=== PATIENT | female | born 1970 | race Caucasian/White ===

== ENCOUNTER 2022-11-27 16:24 | Outpatient (OUT) | payer OTHER, BC, SELFPAY | END 2022-11-27 16:25 | disposition home or self-care (01) | LOC: SLEEP 16:25 | PROVIDERS: PCP Family Medicine; Visit Provider Family Medicine | DX: G47.33 Obstructive sleep apnea (adult) (pediatric) (principal); G47.10 Hypersomnia, unspecified; J20.4 Acute bronchitis due to parainfluenza virus; R06.02 Shortness of breath | CPT/HCPCS: 95806 ==

== ENCOUNTER 2022-12-01 13:42 | Outpatient (OUT) | payer OTHER, BC, SELFPAY ==
[2022-12-01 09:31] LABS: Hemoglobin 12.7 g/dL (12.0-16.0)
[2022-12-01 10:16] VITALS: PULSE 68; O2SAT 98
[2022-12-01] MEDS: ALBUTEROL SULFATE 2.5 MG/3 ML VIAL NEB IH (10:16)
--- NOTE | 2022-12-01 10:19 | RT_ITS ---
The [facility] Test Date: 2022-12-01 Pat Name: ADRIANNA CAMARGO Department: Room: - Gender: Female Ski Instructor: Catrina Townsend RRT : 1970 Requested By: MICHELLE PATTERSON Order Number: [id number] Reading MD: Ruel Nesbitt Interpretive Statements Pulmonary function testing was completed according to ATS criteria. Findings were considered accurate and reproducible. Both pre- and post-bronchodilator values utilized for spirometry. No prior studies available for comparison. Spirometry (based on pre-bronchodilator values): -FEV1/FVC: Normal @ 77% -FEV1: Moderately reduced @ 68% -FVC: Mildly reduced @ 71% -[id number]%: Reduced @ 56% -There is no significant bronchodilator response. Lung volumes by plethysmography: -RV: Normal @ 98% -TLC: Normal @ 87% Diffusion capacity: -DLCO: Normal at 83% uncorrected Flow-volume loop: -Mixed restrictive pattern with obstructive features Impressions: -Non-diagnostic spirometry with normal lung volumes and diffusion capacity. There may be an underlying obstructive process obscured by restriction secondary to obesity (stated BMI is 32.3). Clinical correlation required. Electronically Signed On 12-05-2022 17:16:06 EDT by Ruel Nesbitt
== END 2022-12-01 13:43 | disposition home or self-care (01) ==
LOC: CARD 13:42
PROVIDERS: PCP Family Medicine; Visit Provider Family Medicine
DX: R06.02 Shortness of breath (principal)
CPT/HCPCS: 36415; 85018; 94060; 94726; 94729

== ENCOUNTER 2023-02-15 07:57 | Outpatient (OUT) | payer OTHER, BC, SELFPAY ==
--- NOTE | 2023-02-15 08:03 | CT_ITS ---
The [address] [address] Patient Name: ADRIANNA CAMARGO MRN: [id number] date: 1970 Sex: F Assigned Patient Location: CT Current Patient Location: CT Accession/Order Number: [id number] Exam Date: 02/15/2023 08:16 Report Date: 02/15/2023 08:57 At the request of: YOGESH SOLORZANO Procedure: CT chest w con EXAM: CT chest w con HISTORY: Hilar Lymphadenopathy, Pulmonary Nodule COMPARISON: 10/10/2022; 10/11/2022 TECHNIQUE: Axial CT images were obtained of the chest with intravenous contrast. Multiplanar reconstructions were performed. CHEST FINDINGS: Lungs/Pleura: The lungs are clear. No pleural effusion or pneumothorax. Cardiovascular: The heart is normal in size. No coronary artery calcifications identified. The aorta and pulmonary arteries are unremarkable. Pericardium: No effusion. Mediastinum: Unremarkable. Lymph Nodes: No lymph node enlargement by CT size criteria. Bones: No acute osseous abnormality. Soft tissues: Unremarkable. Upper Abdomen: There is a tiny hypodense lesion in the liver, likely a small cyst or hemangioma. CT/CT chest w con IMPRESSION: 1. No acute abnormality of the chest. Electronically authenticated by: VI SUBRAMANIAN Date: 02/15/2023 08:57
== END 2023-02-15 07:58 | disposition home or self-care (01) ==
LOC: CT 07:57
PROVIDERS: PCP Family Medicine; Visit Provider Internal Medicine
DX: R59.0 Localized enlarged lymph nodes (principal); R91.1 Solitary pulmonary nodule
CPT/HCPCS: 71260; Q9967

== ENCOUNTER 2023-05-08 06:50 | Outpatient (OUT) | payer OTHER, BC, SELFPAY ==
--- NOTE | 2023-05-08 | PCN_ITS ---
CARDIAC STRESS TEST Requesting Physician: Procedure Date: 05/08/2023 This was a treadmill exercise stress test with nuclear perfusion imaging, performed at the [facility] on 05/08/2023. Informed consent was obtained. The patient was attached to electrocardiographic monitoring. An intravenous line was secured. Resting vital signs and ECG were obtained. The patient exercised on a treadmill for a total of 7 minutes and 7 seconds and reached stage 3 of the Aniket protocol and achieved 9.2 METS. Resting heart rate was 74 BPM, maximum heart rate was 171 BPM, representing 100% of maximal predicted heart rate. Resting blood pressure was 138/76. Maximum blood pressure was 182/84. Baseline ECG showed evidence of sinus rhythm. ECG during exercise showed evidence of sinus tachycardia. Final ECG was compatible to baseline. There was no evidence of ischemic ST changes or arrhythmias as seen during the test. The patient developed shortness of breath with exertion but no chest pain. SUMMARY OF THE FINDINGS: 1. Negative treadmill exercise stress test for exercise induced ischemic ECG changes. 2. Echols treadmill score of +7 is associated with low risk for future cardiac events. 3. Myocardial perfusion images will be reported separately. 4. Resting hypertension and exaggerated blood pressure response to exercise. MTDD
--- NOTE | 2023-05-08 06:35 | NM_ITS ---
Patient Name: ADRIANNA CAMARGO MR#: [id number] : 1970 Exam Date: 05/08/2023 Ordering Doctor: RIVAS JENKINS RADIOLOGY REPORT PROCEDURE: NM CODEY PERF SPECT REST STR COMPARISON: None. INDICATIONS: CHEST PAIN TECHNIQUE: Exam Description: Stress/Rest one day protocol gated SPECT Rest Imagin.5 mCi Tc-99m Cardiolite IV on 05/08/2023 Stress Imaging 30.9 mCi Tc-99m Cardiolite IV on 05/08/2023 Exercise Protocol: Aniket Heart Rate (bpm): Rest: 72 Max: 171 PMHR: 100 Blood Pressure: Rest: 138/76 Max: 182/84 Exercise Time: Minutes: 7 Seconds: 07 Stage Reached: Stage: 3 Mets 9.2 Symptoms: Rest and peak stress ECG findings were normal and the exercise portion of the study was normal per attending physician Dr. Sim . For more details please see separate cardiac stress test report. FINDINGS: QUALITY OF STUDY: Excellent. PERFUSION DEFECT: None. LOCATION: N/A SIZE: N/A. SEVERITY: N/A. TYPE: N/A. WALL MOTION: Normal. LV SIZE: Normal. 74 mL. TID / TCD: None; 0.9 LVEF: Normal. Calculated EF 74%. SUMMARY: Myocardial perfusion imaging study is NORMAL. CONCLUSION: 1. Normal nuclear medicine myocardial perfusion scan. Dictated by: Tre Urbano M.D. on 05/10/2023 at 08:56 Approved by: Tre Urbano M.D. on 05/10/2023 at 08:58
--- NOTE | 2023-05-08 10:42 | CA_ITS ---
Patient Name: ADRIANNA CAMARGO MR#: [id number] : 1970 Exam Date: 05/08/2023 Ordering Doctor: RIVAS JENKINS ECHOCARDIOGRAM REPORT PROCEDURE: CA ECHO DOPPLER COMPLETE INDICATIONS: Dyspnea, chest pain COMPARISON: None. DESCRIPTION: COMPLETE ECHOCARDIOGRAM Real-time transthoracic echocardiography with 2D, M-mode, spectral and color flow Doppler performed. QUALITY: Technical quality was good. 66 , 195#, BSA 1.98 m2 LEFT VENTRICLE: Normal chamber size. Normal left ventricular wall thickness. LV EF: Normal left ventricular ejection fraction, (>55%). DIASTOLIC: Normal diastolic function. ATRIAL SEPTUM: Visually appears intact. LEFT ATRIUM: Normal chamber size. RIGHT ATRIUM: Normal chamber size. RIGHT VENTRICLE: Normal chamber size. Normal right ventricular systolic function. TRICUSPID VALVE: Normal mobility and thickness. No stenosis with trivial regurgitation. No evidence of pulmonary hypertension.RVSP 25 mmHg MITRAL VALVE: Normal mobility and thickness. No evidence of mitral valve stenosis. There is no mitral annular calcification. Trivial mitral regurgitation. AORTIC VALVE: Normal trileaflet appearance. No visible sclerosis. Normal leaflet mobility. No evidence of aortic valve stenosis. No aortic regurgitation. AORTIC ROOT: Normal diameter and appearance. PULMONIC VALVE: Normal thickness and mobility. No stenosis. Trivial regurgitation. PERICARDIUM: Anterior free space; trivial effusion versus fat pad. IVC: Collapses with inspirations. IVC is normal in size. CONCLUSION: 1. Global left ventricular systolic function is normal; visually estimated ejection fraction is 60 to 65% 2. Normal diastolic function 3. Normal right ventricular size and systolic function 4. No significant valvular abnormalities 5. Anterior free space; trivial effusion versus fat pad Adult Echocardiography Procedure Report Left Ventricle LVEDD (3.7 - 5.6 cm): 4.39 cm LVESD (2.2 - 4.0 cm): 3.22 cm LVIVS thickness (0.6 - 1.2 cm): 0.77 cm LVPW thickness (0.5 - 1.0 cm): 0.88 cm e': 0.11 m/s E - e': 7.22 LVOT Max Gradient: 2.64 mm[Hg], 2.32 mm[Hg] LVOT Area (cm2): 0.79 m/s Peak Velocity (LVOT): 0.81 m/s, 0.76 m/s Mean Velocity (LVOT): 0.61 m/s LVOT Diameter 2.10 cm Left Atrium LA Volume Index (2D A2C): 26.96 ml/m2 Left Atrium Systolic Dimension: 3.45 cm Mitral Valve MV E to A Ratio: 1.02, 1.03 Mitral Valve A-Wave Peak Velocity: 0.76 m/s Mitral Valve E-Wave Peak Velocity: 0.78 m/s Right Ventricle Aorta AO Root Diam: 2.75 cm Ascending Ao Diam: 2.45 cm Aortic Valve AoV Area (Peak Nathaniel): 1.96 cm2, 2.02 cm2 AoV Area (VTI): 2.17 cm2, 2.20 cm2 Peak Velocity(Antegrade Flow): 1.39 m/s Peak Gradient(Antegrade Flow): 7.73 mm[Hg] Mean Velocity(Antegrade Flow): 0.96 m/s Mean Gradient(Antegrade Flow): 4.04 mm[Hg] Velocity Time Integral: 28.01 cm Tricuspid Valve Peak Velocity (Regurgitant Flow): 2.03 m/s, 2.34 m/s, 2.16 m/s Pulmonic Valve Peak Velocity: 0.93 m/s Peak Gradient: 3.26 mm[Hg], 3.68 mm[Hg] Right Atrium Right Atrium Systolic Pressure: 39.59 ml, 39.59 ml Dictated by: Danika Almonte M.D. on 05/09/2023 at 14:30 Approved by: Danika Almonte M.D. on 05/09/2023 at 14:32
== END 2023-05-08 06:51 | disposition home or self-care (01) ==
LOC: NM 06:51
PROVIDERS: PCP Family Medicine; Visit Provider Internal Medicine Cardiovascular Disease
DX: R06.02 Shortness of breath (principal); R07.9 Chest pain, unspecified
CPT/HCPCS: 78452; 93017; 93306; A9500

== ENCOUNTER 2023-05-13 08:55 | Emergency (ER) | payer OTHER, BC, SELFPAY ==
[2023-05-13 08:59] VITALS: BP 130/79; PULSE 100; RESP 18; TEMP 37.6; O2SAT 92; BMI 30.7
--- NOTE | 2023-05-13 09:11 | ED.GENADUL1 ---
HPI - General Adult General Chief complaint: Upper Respiratory Infection Stated complaint: flu symptoms Time Seen by Provider: 05/13/23 09:06 Source: patient Mode of arrival: walk-in Limitations: no limitations History of Present Illness HPI narrative: 52-year-old female presents for a three day history of nausea vomiting diarrhea body aches and cough. No other family members are ill. No hematemesis or blood in her stool. Related Data Previous Rx's Medication Instructions Recorded ondansetron 4 mg disintegrating 4 mg PO Q6H PRN nausea and 05/13/23 tablet vomiting #20 tabs Allergies Allergy/AdvReac Type Severity Reaction Status Date / Time No Known Drug Allergies Allergy Verified 05/13/23 08:59 Review of Systems ROS Narrative A ten point review of systems is negative except as noted above. Exam Narrative Exam Narrative: Nurses note and vital signs reviewed and patient is not hypoxic. General: The patient appears well and in no apparent distress. Patient is resting comfortably on cart. Skin: Warm, dry, no pallor noted. There is no rash noted. Head: Normocephalic, atraumatic Eye: Normal conjunctiva, no drainage Ears, Nose, Mouth, and Throat: oral mucosa is moist. Nares patent. Cardiovascular: Regular Rate and Rhythm Respiratory: Patient is in no distress, no accessory muscle use, lungs are clear to auscultation, no wheezing, rales or rhonchi Back: non-tender GI: no tenderness to palpation, no masses appreciated. No rebound, guarding, or rigidity noted. Musculoskeletal: The patient has no evidence of calf tenderness, no pitting edema, symmetrical pulses noted bilaterally Neurological: A&O, normal speech Psychiatric: Cooperative Constitutional Vital Signs, click to edit/add: Last Vital Signs Temp 99.7 F 05/13/23 08:59 Pulse 88 05/13/23 10:08 Resp 20 05/13/23 10:08 BP 108/60 05/13/23 10:08 Pulse Ox 92 L 05/13/23 10:08 O2 Del Method Room Air 05/13/23 08:59 Course Vital Signs Vital signs: Vital Signs Temperature 99.7 F 05/13/23 08:59 Pulse Rate 100 H 05/13/23 08:59 Respiratory Rate 18 05/13/23 08:59 Blood Pressure 130/79 05/13/23 08:59 Pulse Oximetry 92 L 05/13/23 08:59 Oxygen Delivery Method Room Air 05/13/23 08:59 Temperature 99.7 F 05/13/23 08:59 Pulse Rate 88 05/13/23 10:08 Respiratory Rate 20 05/13/23 10:08 Blood Pressure 108/60 05/13/23 10:08 Pulse Oximetry 92 L 05/13/23 10:08 Oxygen Delivery Method Room Air 05/13/23 08:59 Medical Decision Making MDM Narrative Medical decision making narrative: Blood work as well as Covid in influenza testing is negative. She is able to be discharged home and my clinical impression is that she has a viral infection. Treatment diagnosis and follow-up were discussed with the patient. Differential Diagnosis Differential Diagnosis: food poisoning, viral gastroenteritis, Covid, influenza Lab Data Lab results reviewed: Yes I reviewed the patient's lab results Labs: Lab Results 05/13/23 Range/Units 09:15 WBC 10.6 (4.0-11.0) 10^3/uL RBC 4.25 (4.20-5.40) 10^6/uL Hgb 12.8 (12.0-16.0) g/dL Hct 38.9 (36.0-48.0) % MCV 91.5 (81.0-99.0) fL MCH 30.1 (26.7-34.0) pg MCHC 32.9 (29.9-35.2) g/dL RDW 13.1 (11.0-15.0) % Plt Count 239 (150-450) 10^3/uL MPV 8.6 L (9.5-13.5) fL Neut % (Auto) 87.1 H (43.0-75.0) % Lymph % (Auto) 5.6 L (20.5-60.0) % [place] % (Auto) 6.6 (1.7-12.0) % Eos % (Auto) 0.1 L (0.9-7.0) % Baso % (Auto) 0.1 L (0.2-2.0) % Neut # (Auto) 9.2 H (1.4-6.5) 10^3/uL Lymph # (Auto) 0.6 L (1.2-3.8) 10^3/uL [place] # (Auto) 0.7 (0.3-0.8) 10^3/uL Eos # (Auto) 0.0 (0.0-0.7) 10^3/uL Baso # (Auto) 0.0 (0.0-0.1) 10^3/uL Abs Immat Gran (auto) 0.05 H (0.00-0.03) 10^3/uL Imm/Tot Granulo (auto) 0.5 (0.0-0.5) % Sodium 135 L (136-145) mmol/L Potassium 3.4 L (3.5-5.1) mmol/L Chloride 98 (98-107) mmol/L Carbon Dioxide 26.0 (21.0-32.0) mmol/L Anion Gap 14.4 BUN 20.0 H (7.0-18.0) mg/dL Creatinine 1.06 H (0.55-1.02) mg/dL Est GFR ( Amer) >60 (>=60) Est GFR (Non-Af Amer) 55 L (>=60) BUN/Creatinine Ratio 18.9 Glucose 115 H (74-106) mg/dL Calcium 8.7 (8.5-10.1) mg/dL SARS-CoV-2 (PCR) Negative (NEGATIVE) Influenza Type A Ag Negative Influenza Type B Ag Negative Discharge Plan Discharge Chief Complaint: Upper Respiratory Infection Clinical Impression: Nausea, vomiting, and diarrhea Patient Disposition: Home, Self-Care Time of Disposition Decision: 10:44 Condition: Good Mode of Transportation: Private Vehicle Prescriptions / Home Meds: New ondansetron 4 mg tablet,disintegrating 4 mg PO Q6H PRN (Reason: nausea and vomiting) Qty: 20 0RF Instructions: Acute Nausea and Vomiting (ED) Stand Alone Forms: Portal Instructions Referrals: Regan Crain MD [Primary Care Provider] - 1 week
[2023-05-13] MEDS: 0.9 % SODIUM CHLORIDE 1,000 ML 1000 ML IV (09:22)
[2023-05-13 09:23] LABS: Basophils Percent Auto 0.1 % (0.2-2.0); Eosinophils Percent Auto 0.1 % (0.9-7.0); Hematocrit 38.9 % (36.0-48.0); Hemoglobin 12.8 g/dL (12.0-16.0); Immature Granulocytes Abs Auto 0.05 10^3/uL (0.00-0.03); Immature Granulocytes Pct Auto 0.5 % (0.0-0.5); Lymphocytes Absolute Auto 0.6 10^3/uL (1.2-3.8); Lymphocytes Percent Auto 5.6 % (20.5-60.0); Mean Corpuscular HGB Conc 32.9 g/dL (29.9-35.2); Mean Corpuscular Hemoglobin 30.1 pg (26.7-34.0); Mean Corpuscular Volume 91.5 fL (81.0-99.0); Mean Platelet Volume 8.6 fL (9.5-13.5); Monocytes Absolute Auto 0.7 10^3/uL (0.3-0.8); Monocytes Percent Auto 6.6 % (1.7-12.0); Neutrophils Absolute Auto 9.2 10^3/uL (1.4-6.5); Neutrophils Percent Auto 87.1 % (43.0-75.0); Platelet Count 239 10^3/uL (150-450); Red Blood Count 4.25 10^6/uL (4.20-5.40); Red Cell Distribution Width 13.1 % (11.0-15.0); White Blood Count 10.6 10^3/uL (4.0-11.0)
[2023-05-13] MEDS: ONDANSETRON PF 4 MG/2 ML VIAL IV (09:23)
[2023-05-13 09:31] LABS: Anion Gap 14.4; BUN Creatinine Ratio 18.9; Calcium 8.7 mg/dL (8.5-10.1); Chloride 98 mmol/L (98-107); Estimated GFR (African America >60 (>=60); Estimated GFR (Non-African Ame 55 (>=60); Glucose 115 mg/dL (74-106); Potassium 3.4 mmol/L (3.5-5.1); Sodium 135 mmol/L (136-145)
--- OUTSIDE RECORDS SUMMARY | 2023-05-13 09:33 | XMS_ITS | CCD ---
Author Name Unknown Address [address] [facility] [address] [place] [id number] Organization [facility] Care Team Providers Care Assurance Analyst Name Role Phone YESENIA, DR MICHELLE Schafer Primary Care Unavailable OCTAVIANO, DR JUNG Bingham Consulting Unavailable FAFARIDEH, SHAIKH Luis Admitting Unavailable MICHAEL, SHAIKH Luis Attending Unavailable MARKER ., DR SULLIVAN Consulting Unavailable FAWRAMONE, SHAIKH Luis Consulting Unavailable KNABEPEGGY Consulting Unavailable SISTER, GWENDOLYN Consulting Unavailable YESENIA, DR MICHELLE Schafer Primary Care Unavailable NADWILMAN, DR MICHELLE Schafer Consulting Unavailable YESENIA, DR MICHELLE Schafer Attending Unavailable NADWILMAN, DR MICHELLE Schafer Admitting Unavailable NADERER, DR MICHELLE Schafer Primary Care Unavailable NADERER, DR MICHELLE Schafer Consulting Unavailable NADERER, DR MICHELLE Schafer Attending Unavailable YESENIA, DR MICHELLE Schafer Admitting Unavailable RIVAS JENKINS Attending Unavailable Shannon Peñaloza Unavailable Medications Current Medications Medication Drug Class(es) Dates Sig (Normalized) Sig (Original) azithromycin 250 mg oral tablet (1 source) Macrolide Antimicrobial Start: 03-05-2023 Azithromycin 250 MG 2 tablet on the first day, then 1 tablet daily for 4 days Orally Once a day for 5 day(s) Feb, Active Problems Active Problems Problem Classification Problem Date Documented Date Episodic/Chronic Asthma (1 source) Unspecified asthma with (acute) exacerbation; Translations: [UNS ASTHMA W/ACUTE EXACERBATION] Onset: 10-13-2022 Chronic Bacterial infection; unspecified site (1 source) Other staphylococcus as the cause of diseases classified elsewhere; Translations: [OTH STAPH CAUSE OF DZ CLASS ELSW] Onset: 10-13-2022 Episodic Chronic obstructive pulmonary disease and bronchiectasis (1 source) Bronchitis, not specified as acute or chronic Episodic Nonspecific chest pain (2 sources) Chest pain, unspecified; Translations: [Chest pain, unspecified] Onset: 02-27-2023 Episodic Other lower respiratory disease (1 source) Solitary pulmonary nodule; Translations: [SOLITARY PULMONARY NODULE] Onset: 10-13-2022 Episodic Other screening for suspected conditions (not mental disorders or infectious disease) (1 source) Other specified abnormal findings of blood chemistry; Translations: [OTH SPEC ABNORMAL FINDINGS BLD CHEM] Onset: 10-13-2022 Episodic Residual codes; unclassified (1 source) Obstructive sleep apnea (adult) (pediatric); Translations: [OBSTRUCTIVE SLEEP APNEA] Onset: 10-13-2022 Chronic Residual codes; unclassified (1 source) Family history of ischemic heart disease and other diseases of the circulatory system; Translations: [FAM HX ISCHEMIC HRT DZ OTH DZ CIRC] Onset: 10-13-2022 Episodic Respiratory failure; insufficiency; arrest (adult) (1 source) Acute respiratory failure with hypoxia; Translations: [ACUTE RESPIRATORY FAIL W/HYPOXIA] Onset: 10-13-2022 Episodic Unclassified (1 source) CONTACT W/AND (SUSP) EXPOS COVID-19; Translations: [CONTACT W/AND (SUSP) EXPOS COVID-19] Onset: 10-13-2022 Viral infection (3 sources) Other viral infections of unspecified site; Translations: [OTHER VIRAL INFECTIONS OF UNS SITE] Onset: 10-11-2022 Episodic Past or Other Problems Problem Classification Problem Date Documented Da te Episodic/Chronic Cardiac dysrhythmias (1 source) Palpitations; Translations: [PALPITATIONS] Onset: 04-15-2022 Episodic Malaise and fatigue (5 sources) Other fatigue; Translations: [OTHER FATIGUE] Onset: 03-09-2022 Episodic Other lower respiratory disease (4 sources) Shortness of breath; Translations: [SHORTNESS OF BREATH] Onset: 04-10-2022 Episodic Residual codes; unclassified (1 source) Localized edema; Translations: [LOCALIZED EDEMA] Onset: 04-15-2022 Episodic Results Test Name Value Interpretation Reference Range Facility CULTURE BLOODon 10-15-2022 Microscopic examination of blood, culture Culture Observations: Aerobic bottle positive; BCID= S. Epidermidis Culture Observations: NO GROWTH AT 5 DAYS ANAEROBIC BOTTLE. Isolate 1 Staphylococcus capitis Growth of Isolate 2 Staphylococcus epidermidis Growth of ORGANISM 1 Staphylococcus capitis ANTIBIOTIC M.I.C RX STATUS Beta-Lactamase Neg NEG C Cefoxitin Screen Neg NEG C Benzylpenicillin <=0.03 S C Oxacillin <=0.25 S C Gentamicin <=0.5 S C Ciprofloxacin <=0.5 S C Levofloxacin 0.5 S C Inducible Clindamycin Resistance Neg NEG C Erythromycin 0.5 S C Clindamycin <=0.25 S C Quinupristin/Dalfopr istin 0.5 S C Linezolid 2 S C Vancomycin 1 S C Tetracycline <=1 S C Rifampicin <=0.5 S C Trimethoprim/Sulfame thoxazole <=10 S C ORGANISM 2 Staphylococcus epidermidis ANTIBIOTIC M.I.C RX STATUS Beta-Lactamase Neg NEG C Cefoxitin Screen Neg NEG C Benzylpenicillin <=0.03 S C Oxacillin <=0.25 S C Gentamicin <=0.5 S C Ciprofloxacin <=0.5 S C Levofloxacin <=0.12 S C Erythromycin <=0.25 S C Clindamycin >=8 R C Quinupristin/Dalfopr istin <=0.25 S C Linezolid 1 S C Vancomycin 1 S C Tetracycline <=1 S C Rifampicin <=0.5 S C Trimethoprim/Sulfame thoxazole <=10 S C Normal [facility] Comment on above: Performed By: #### B MP #### [facility] [address] [place] [address] Dr. Abril Richmond CBC AUTO DIFFon 10-12-2022 BASO # 0.0 103/ul Normal 0.0-0.1 [facility] Comment on above: Performed By: #### B MP #### [facility] [address] [place] [address] Dr. Abril Richmond Basophils/100 WBC (Bld) 0.2 % Normal 0.2-2.0 [facility] Comment on above: Performed By: #### B MP #### [facility] [address] [place] [address] Dr. Abril Richmond EO # 0.0 103/ul Normal 0.0-0.7 [facility] Comment on above: Performed By: #### B MP #### [facility] [address] [place] [address] Dr. Abril Richmond Eosinophils/100 WBC (Bld) 0.1 % Critically low 0.9-7.0 [facility] Comment on above: Performed By: #### B MP #### [facility] [address] [place] [address] Dr. Abril Richmond Erythrocyte distribution width (RBC) [Ratio] 13.0 % Normal 11.0-15.0 [facility] Comment on above: Performed By: #### B MP #### [facility] [address] [place] [address] Dr. Abril Richmond Hematocrit (Bld) [Volume fraction] 33.6 % Critically low 36.0-48.0 [facility] Comment on above: Performed By: #### B MP #### [facility] [address] [place] [address] Dr. Abril Richmond Hemoglobin (Bld) [Mass/Vol] 10.9 g/dL Critically low 12.0-16.0 [facility] Comment on above: Performed By: #### B MP #### [facility] [address] [place] [address] Dr. Abril Richmond IG # 0.18 10e3/ul Critically high 0.00-0.03 [facility] Comment on above: Performed By: #### B MP #### [facility] [address] [place] [address] Dr. Abril Richmond IG % 1.4 % Critically high 0.0-0.5 [facility] Comment on above: Performed By: #### B MP #### [facility] [address] [place] [address] Dr. Abril Richomnd LYMPH # 0.6 103/ul Critically low 1.2-3.8 [facility] Comment on above: Performed By: #### B MP #### [facility] [address] [place] [address] Dr. Abril Richmond Lymphocytes/100 WBC (Bld) 4.6 % Critically low 20.5-60.0 [facility] Comment on above: Performed By: #### B MP #### [facility] [address] [place] [address] Dr. Abril Richmond MANUAL DIFF REQ NO Normal [facility] Comment on above: Performed By: #### B MP #### [facility] [address] [place] [address] Dr. Abril Richmond MCH (RBC) [Entitic mass] 29.1 pg Normal 26.7-34.0 [facility] Comment on above: Performed By: #### B MP #### [facility] [address] [place] [address] Dr. Abril Richmond MCHC (RBC) [Mass/Vol] 32.4 g/dL Normal 29.9-35.2 [facility] Comment on above: Performed By: #### B MP #### [facility] [address] [place] [address] Dr. Abril Richmond MCV (RBC) [Entitic vol] 89.8 fL Normal 81.0-99.0 [facility] Comment on above: Performed By: #### B MP #### [facility] [address] [place] [address] Dr. Abril Richmond MONO # 0.5 103/ul Normal 0.3-0.8 [facility] Comment on above: Performed By: #### B MP #### [facility] [address] [place] [address] Dr. Abril Richmond Monocytes/100 WBC (Bld) 3.7 % Normal 1.7-12.0 [facility] Comment on above: Performed By: #### B MP #### [facility] [address] [place] [address] Dr. Abril Richmond NEUT # 12.0 103/ul Critically high 1.4-6.5 [facility] Comment on above: Performed By: #### B MP #### [facility] [address] [place] [address] Dr. Abril Richmond Neutrophils/100 WBC (Bld) 90.0 % Critically high 43.0-75.0 [facility] Comment on above: Performed By: #### B MP #### [facility] [address] [place] [address] Dr. Abril Richmond Platelet mean volume (Bld) [Entitic vol] 8.6 fL Critically low 9.5-13.5 [facility] Comment on above: Performed By: #### B MP #### [facility] [address] [address] [address] Abril Richmond PLT 334 103/ul Normal 150-450 [facility] Comment on above: Performed By: #### B MP #### [facility] [address] [address] [address] Abril Richmond RBC 3.74 106/ul Critically low 4.20-5.40 [facility] Comment on above: Performed By: #### B MP #### [facility] [address] [address] [address] Abril Richmond WBC 13.3 103/ul Critically high 4.0-11.0 [facility] Comment on above: Performed By: #### B MP #### [facility] [address] [place] [address] Dr. Abril Richmond PROF CHEM 8 (BAS METB)on Anion gap [Moles/Vol] 11.4 mmol/L Normal [facility] Comment on above: Performed By: #### B MP #### [facility] [address] [place] [address] Dr. Abril Richmond Calcium [Mass/Vol] 8.4 mg/dL Critically low 8.5-10.1 [facility] Comment on above: Performed By: #### B MP #### [facility] [address] [place] [address] Dr. Abril Richmond Chloride [Moles/Vol] 105 mmol/L Normal 98-107 [facility] Comment on above: Performed By: #### B MP #### [facility] [address] [place] [address] Dr. Abril Richmond CO2 [Moles/Vol] 28.5 mmol/L Normal 21.0-32.0 [facility] Comment on above: Performed By: #### B MP #### [facility] [address] [place] [address] Dr. Abril Richmond Creatinine [Mass/Vol] 0.81 mg/dL Normal 0.55-1.02 [facility] Comment on above: Performed By: #### B MP #### [facility] [address] [address] [address] Abril Richmond EGFR-AF KAZAKH >60 Normal >=60 [facility] Comment on above: Performed By: #### B MP #### [facility] [address] [address] [address] Abril Richmond EGFR-NON AF KAZAKH >60 Normal >=60 [facility] Comment on above: Performed By: #### B MP #### [facility] [address] [address] [address] Abril Richmond Glucose [Mass/Vol] 160 mg/dL Critically high 74-106 [facility] Comment on above: Performed By: #### B MP #### [facility] [address] [place] [address] Dr. Abril Richmond Potassium [Moles/Vol] 3.9 mmol/L Normal 3.5-5.1 [facility] Comment on above: Performed By: #### B MP #### [facility] [address] [address] [address] Abril Richmond Sodium [Moles/Vol] 141 mmol/L Normal 136-145 [facility] Comment on above: Performed By: #### B MP #### [facility] [address] [address] [address] Abril Richmond Urea nitrogen [Mass/Vol] 17.0 mg/dL Normal 7.0-18.0 [facility] Comment on above: Performed By: #### B MP #### [facility] [address] [address] [address] Abril Richmond Urea nitrogen/Creatinine [Mass ratio] 21.0 mg/mg Normal [facility] Comment on above: Performed By: #### B MP #### [facility] [address] [address] [address] Abril Richmond POINT OF CARE GLUCOSEon 09-19 Glucose [Mass/Vol] 167 mg/dL Critically high 74-106 [facility] Comment on above: Performed By: #### P OCGLUC #### [facility] [address] [address] [address] Abril Richmond XR CHEST 1 Von 10-11-2022 XR CHEST 1 V EXAMINATION: XR CHEST 1 V HISTORY: shortness of breath or wheezing COMPARISON: CTA chest 10/10/2022 FINDINGS: LUNGS: No acute infiltrates. Prominent pericardial fat pad within medial right lung base. VASCULATURE: No increased pulmonary vasculature. PLEURA: No pneumothorax, effusion, or pleural thickening. CARDIAC: No cardiomegaly or cardiac silhouette abnormality. MEDIASTINUM: No visible mass or adenopathy. BONES: No fracture or visible bone lesion. OTHER: Negative. IMPRESSION: 1. No acute cardiopulmonary process. Electronically authenticated by: JUNG BRUMFIELD Date: 2022-10-11 13:22 Normal [facility] BLOOD CULTURE ID PANELon A. baumannii Not detected Normal NOT DETECTED [facility] Comment on above: Performed By: #### B CID2 #### [facility] [address] [address] [address] Abril Richmond Bacteriodes fragilis Not detected Normal NOT DETECTED [facility] Comment on above: Performed By: #### B CID2 #### [facility] [address] [address] [address] Abril Richmond BCID CONTROLS PASSED Normal [facility] Comment on above: Performed By: #### B CID2 #### [facility] [address] [address] [address] Abril Richmond BCIDBTHD BLOOD CULTURE BOTTLE INFORMATION Normal [facility] Comment on above: Performed By: #### B CID2 #### [facility] [address] [address] [address] Abril Richmond BCIDHD1 ANTIMICROBIAL RESISTANCE GENES Normal [facility] Comment on above: Performed By: #### B CID2 #### [facility] [address] [place] [address] Dr. Abril Richmond BCIDHD2 SEE BELOW Normal [facility] Comment on above: Result Comment: Note : Antimicrobial resitance can occur via multiple mechanisms. A Not Detected result for the [employer] antomicrobial resistance gene assays does not indicate antimicrobial susceptibility. Subculturing is required for species identification and susceptibility testing of isolates. Performed By: #### B CID2 #### [facility] [address] [place] [address] Dr. Abril Richmond BCIDHD3 Positive Normal [facility] Comment on above: Performed By: #### B CID2 #### [facility] [address] [place] [address] Dr. Abril Richmond BCIDHD4 Negative Normal [facility] Comment on above: Performed By: #### B CID2 #### [facility] [address] [place] [address] Dr. Abril Richmond BCIDHD5 YEAST Normal [facility] Comment on above: Performed By: #### B CID2 #### [facility] [address] [place] [address] Dr. Abril Richmond Bottle Set: Set 1 [facility] Comment on above: Performed By: #### B CID2 #### [facility] [address] [place] [address] Dr. Abril Richmond Bottle: Aerobic Normal [facility] Comment on above: Performed By: #### B CID2 #### [facility] [address] [place] [address] Dr. Abril Richmond C. neoformans/gattii Not detected Normal NOT DETECTED [facility] Comment on above: Performed By: #### B CID2 #### [facility] [address] [place] [address] Dr. Abril Richmond Lucy albicans Not detected Normal NOT DETECTED [facility] Comment on above: Performed By: #### B CID2 #### [facility] [address] [place] [address] Dr. Abril Richmond Lucy auris Not detected Normal NOT DETECTED The [facility] Comment on above: Performed By: #### B CID2 #### [facility] [address] [place] [address] Dr. Abril Richmond Lucy glabrata Not detected Normal NOT DETECTED [facility] Comment on above: Performed By: #### B CID2 #### [facility] [address] [place] [address] Dr. Abril Richmond Lucy Krusei Not detected Normal NOT DETECTED [facility] Comment on above: Performed By: #### B CID2 #### [facility] [address] [place] [address] Dr. Abril Richmond Lucy Parapsilosis Not detected Normal NOT DETECTED [facility] Comment on above: Performed By: #### B CID2 #### [facility] [address] [place] [address] Dr. Abril Richmond Lucy Tropicalis Not detected Normal NOT DETECTED [facility] Comment on above: Performed By: #### B CID2 #### [facility] [address] [address] [address] Abril Richmond CTX-M Resistant Gene Not Applicable Normal NOT DETECTE [facility] Comment on above: Performed By: #### B CID2 #### [facility] [address] [place] [address] Dr. Abril Richmond E. Cloacae complex Not detected Normal NOT DETECTED [facility] Comment on above: Performed By: #### B CID2 #### [facility] [address] [place] [address] Dr. Abril Richmond E. faecalis Not detected Normal NOT DETECTED [facility] Comment on above: Performed By: #### B CID2 #### [facility] [address] [place] [address] Dr. Abril Richmond E. faecium Not detected Normal NOT DETECTED [facility] Comment on above: Performed By: #### B CID2 #### [facility] [address] [place] [address] Dr. Abril Richmond Enterobacteriaceae Not detected Normal NOT DETECTED [facility] Comment on above: Performed By: #### B CID2 #### [facility] [address] [place] [address] Dr. Abril Richmond Escherichia coli Not detected Normal NOT DETECTED [facility] Comment on above: Performed By: #### B CID2 #### [facility] [address] [place] [address] Dr. Abril Richmond H. influenzae Not detected Normal NOT DETECTED The [facility] Comment on above: Performed By: #### B CID2 #### [facility] [address] [place] [address] Dr. Abril Richmond IMP Resistant Gene Not Applicable Normal NOT DETECTED [facility] Comment on above: Performed By: #### B CID2 #### [facility] [address] [place] [address] Dr. Abril Bains. oxytoca Not detected Normal NOT DETECTED [facility] Comment on above: Performed By: #### B CID2 #### [facility] [address] [place] [address] Dr. Abril Richmond K. pneumoniae Not detected Normal NOT DETECTED The [facility] Comment on above: Performed By: #### B CID2 #### [facility] [address] [place] [address] Dr. Abril Richmond Klebsiella aerogenes Not detected Normal NOT DETECTED [facility] Comment on above: Performed By: #### B CID2 #### [facility] [address] [place] [address] Dr. Abril Richmond KPC Resistant Gene Not detected Normal NOT DETECTED [facility] Comment on above: Performed By: #### B CID2 #### [facility] [address] [place] [address] Dr. Abril Richmond List. monocytogenes Not detected Normal NOT DETECTED [facility] Comment on above: Performed By: #### B CID2 #### [facility] [address] [place] [address] Dr. Abril Richmond Mcr-1 Resistant Gene Not Applicable Normal NOT DETECTE D [facility] Comment on above: Performed By: #### B CID2 #### [facility] [address] [place] [address] Dr. Abril Richmond mecA/C Not Applicable Normal NOT DETECTED [facility] Comment on above: Performed By: #### B CID2 #### [facility] [address] [place] [address] Dr. Abril Richmond mecA/C MREJ Not Applicable Normal NOT DETECTED The [facility] Comment on above: Performed By: #### B CID2 #### [facility] [address] [place] [address] Dr. Abril Richmond N. meningitidis Not detected Normal NOT DETECTED [facility] Comment on above: Performed By: #### B CID2 #### [facility] [address] [place] [address] Dr. Abril Richmond NDM Resistant Gene Not Applicable Normal NOT DETECTED [facility] Comment on above: Performed By: #### B CID2 #### [facility] Laboratory [address] [place] [address] Dr. Abril Richmond Oxa-48-like Not Applicable Normal NOT DETECTED The [facility] Comment on above: Performed By: #### B CID2 #### [facility] [address] [place] [address] Dr. Abril Richmond Proteus Not detected Normal NOT DETECTED [facility] Comment on above: Performed By: #### B CID2 #### [facility] [address] [place] [address] Dr. Abril Richmond Pseud. aeruginosa Not detected Normal NOT DETECTED [facility] Comment on above: Performed By: #### B CID2 #### [facility] [address] [place] [address] Dr. Abril Richmond S. maltophilia Not detected Normal NOT DETECTED [facility] Comment on above: Performed By: #### B CID2 #### [facility] [address] [place] [address] Dr. Abril Richmond Salmonella Not detected Normal NOT DETECTED [facility] Comment on above: Performed By: #### B CID2 #### [facility] [address] [place] [address] Dr. Abril Richmond Seratia marcescens Not detected Normal NOT DETECTED [facility] Comment on above: Performed By: #### B CID2 #### [facility] [address] [place] [address] Dr. Abril Richmond Site: R AC Normal [facility] Comment on above: Performed By: #### B CID2 #### [facility] [address] [place] [address] Dr. Abril Richmond Staph. aureus Not detected Normal NOT DETECTED The [facility] Comment on above: Performed By: #### B CID2 #### [facility] [address] [place] [address] Dr. Abril Richmond Staph. epidermidis Detected Critically abnormal NOT DETECTED [facility] Comment on above: Performed By: #### B CID2 #### [facility] [address] [place] [address] Dr. Abril Richmond Staph. lugdunensis Not detected Normal NOT DETECTED [facility] Comment on above: Performed By: #### B CID2 #### [facility] [address] [place] [address] Dr. Abril Richmond Staphylococcus Detected Critically abnormal NOT DETECTED [facility] Comment on above: Performed By: #### B CID2 #### [facility] [address] [place] [address] Dr. Abril Richmond Strep. agalactiae Not detected Normal NOT DETECTED [facility] Comment on above: Performed By: #### B CID2 #### [facility] [address] [place] [address] Dr. Abril Richmond Strep. pneumoniae Not detected Normal NOT DETECTED [facility] Comment on above: Performed By: #### B CID2 #### [facility] [address] [place] [address] Dr. Abril Richmond Strep. pyogenes Not detected Normal NOT DETECTED [facility] Comment on above: Performed By: #### B CID2 #### [facility] [address] [place] [address] Dr. Abril Richmond Streptococcus Not detected Normal NOT DETECTED The [facility] Comment on above: Performed By: #### B CID2 #### [facility] [address] [place] [address] Dr. Abril Richmond John/B Resist. Gene Not detected Normal NOT DETECTED [facility] Comment on above: Performed By: #### B CID2 #### [facility] [address] [place] [address] Dr. Abril Richmond VIM Resistant Gene Not Applicable Normal NOT DETECTED [facility] Comment on above: Performed By: #### B CID2 #### [facility] [address] [place] [address] Dr. Abril Richmond BNPon 10-10-2022 Natriuretic peptide B (Bld) [Mass/Vol] 194.0 pg/mL Normal <=900.0 [facility] Comment on above: Performed By: #### C MP, HSTROPN, BNP #### [facility] [address] [place] [address] Dr. Abril Richmond CBC AUTO DIFFon 10-10-2022 BASO # 0.0 103/ul Normal 0.0-0.1 [facility] Comment on above: Performed By: #### C BC #### [facility] [address] [place] [address] Dr. Abril Richmond Basophils/100 WBC (Bld) 0.2 % Normal 0.2-2.0 [facility] Comment on above: Performed By: #### C BC #### [facility] [address] [place] [address] Dr. Abril Richmond EO # 0.1 103/ul Normal 0.0-0.7 [facility] Comment on above: Performed By: #### C BC #### [facility] [address] [place] [address] Dr. Abril Richmond Eosinophils/100 WBC (Bld) 1.6 % Normal 0.9-7.0 [facility] Comment on above: Performed By: #### C BC #### [facility] [address] [place] [address] Dr. Abril Richmond Erythrocyte distribution width (RBC) [Ratio] 12.5 % Normal 11.0-15.0 [facility] Comment on above: Performed By: #### C BC #### [facility] [address] [place] [address] Dr. Abril Richmond Hematocrit (Bld) [Volume fraction] 39.2 % Normal 36.0-48.0 [facility] Comment on above: Performed By: #### C BC #### [facility] [address] [place] [address] Dr. Abril Richmond Hemoglobin (Bld) [Mass/Vol] 13.0 g/dL Normal 12.0-16.0 [facility] Comment on above: Performed By: #### C BC #### [facility] [address] [place] [address] Dr. Abril Richmond IG # 0.15 10e3/ul Critically high 0.00-0.03 [facility] Comment on above: Performed By: #### C BC #### [facility] [address] [address] [address] Abril Richmond IG % 1.8 % Critically high 0.0-0.5 [facility] Comment on above: Performed By: #### C BC #### [facility] [address] [place] [address] Dr. Abril Richmond LYMPH # 1.0 103/ul Critically low 1.2-3.8 [facility] Comment on above: Performed By: #### C BC #### [facility] [address] [place] [address] Dr. Abril Richmond Lymphocytes/100 WBC (Bld) 11.7 % Critically low 20.5-60.0 [facility] Comment on above: Performed By: #### C BC #### [facility] [address] [place] [address] Dr. Abril Richmond MANUAL DIFF REQ NO Normal [facility] Comment on above: Performed By: #### C BC #### [facility] [address] [place] [address] Dr. Abril Richmond MCH (RBC) [Entitic mass] 29.8 pg Normal 26.7-34.0 [facility] Comment on above: Performed By: #### C BC #### [facility] [address] [address] [address] Abril Richmond MCHC (RBC) [Mass/Vol] 33.2 g/dL Normal 29.9-35.2 [facility] Comment on above: Performed By: #### C BC #### [facility] [address] [place] [address] Dr. Abril Richmond MCV (RBC) [Entitic vol] 89.9 fL Normal 81.0-99.0 [facility] Comment on above: Performed By: #### C BC #### [facility] [address] [place] [address] Dr. Abril Richmond MONO # 0.6 103/ul Normal 0.3-0.8 [facility] Comment on above: Performed By: #### C BC #### [facility] [address] [place] [address] Dr. Abril Richmond Monocytes/100 WBC (Bld) 7.0 % Normal 1.7-12.0 [facility] Comment on above: Performed By: #### C BC #### [facility] [address] [place] [address] Dr. Abril Richmond NEUT # 6.5 103/ul Normal 1.4-6.5 [facility] Comment on above: Performed By: #### C BC #### [facility] [address] [place] [address] Dr. Abril Richmond Neutrophils/100 WBC (Bld) 77.7 % Critically high 43.0-75.0 [facility] Comment on above: Performed By: #### C BC #### [facility] [address] [place] [address] Dr. Abril Richmond Platelet mean volume (Bld) [Entitic vol] 8.6 fL Critically low 9.5-13.5 [facility] Comment on above: Performed By: #### C BC #### [facility] [address] [place] [address] Dr. Abril Richmond PLT 321 103/ul Normal 150-450 [facility] Comment on above: Performed By: #### C BC #### [facility] [address] [place] [address] Dr. Abril Richmond RBC 4.36 106/ul Normal 4.20-5.40 [facility] Comment on above: Performed By: #### C BC #### [facility] [address] [place] [address] Dr. Abril Richmond WBC 8.4 103/ul Normal 4.0-11.0 [facility] Comment on above: Performed By: #### C #### [facility] [address] [address] [address] Abril Richmond CTA CHEST WO W CONon 023 CTA CHEST WO W CON EXAMINATION: CTA CHEST WO W CON HISTORY: Shortness of breath. COMPARISON: None. TECHNIQUE: CT angiography of the pulmonary arteries following the administration of intravenous contrast. Coronal and sagittal MIP (maximum intensity projection) images were performed. Dose reduction techniques were achieved by using automated exposure control and/or adjustment of mA and/or kV according to patient size and/or use of iterative reconstruction technique. FINDINGS: There is contrast within the pulmonary arteries. There is no pulmonary embolus. The heart size is normal. There is no pericardial fluid or thickening. The thoracic and proximal abdominal aorta are unremarkable. There is no aneurysm or dissection. The great vessels off the aortic arch are unremarkable. The image branch vessels off the abdominal aorta are unremarkable. There is no consolidation or infiltrate. There is no pleural effusion. There is no pneumothorax. There is a 0.2 cm noncalcified perifissural nodule within the right mid chest (series 5 image 47). There are enlarged mediastinal and bilateral hilar lymph nodes which may be reactive. Follow-up imaging recommended to confirm resolution. The trachea is unremarkable. There is a small hiatal hernia. There is mild circumferential thickening of the esophageal wall which can be associated with an esophagitis or sequelae of chronic gastroesophageal reflux. The thyroid gland is unremarkable. The liver appears fatty infiltrated. There is a 0.3 cm hypodense lesion within the liver which is too small to further characterize by computed tomography. There is mild hypertrophy of the bilateral adrenal glands. There is slight dextroscoliosis of the thoracic spine. Small paravertebral ossifications at T7. Small endplate spurs at T10-T11. IMPRESSION: There is no pulmonary embolus. The thoracic and proximal abdominal aorta are normal. There is no consolidation or infiltrate. There is a 0.2 cm noncalcified perifissural nodule within the right mid chest (series 5 image 47). There are enlarged mediastinal and bilateral hilar lymph nodes which may be reactive. A CT examination of the chest with intravenous contrast following appropriate medical treatment is recommended to confirm resolution. This examination should be performed with intravenous contrast for optimal evaluation of the bilateral hilar regions. Small hiatal hernia. There is mild circumferential thickening of the esophageal wall which can be associated with an esophagitis or sequelae of chronic gastroesophageal reflux. Reevaluation on the follow-up CT examination recommended. The liver appears fatty infiltrated. There is a 0.3 cm hypodense lesion within the liver which is too small to further characterize by computed tomography. There is mild hypertrophy of the bilateral adrenal glands. Electronically authenticated by: PEGGY CALVIN Date: 2022-10-10 05:03 Normal [facility] CULTURE BLOODon 10-10-2022 Microscopic examination of blood, culture Culture Observations: NO GROWTH AT 5 DAYS. Normal [facility] Comment on above: Performed By: #### B MP #### [facility] [address] [place] [address] Dr. Abril Richmond D-DIMERon 10-10-2022 D-DIMER 0.78 mg/L FEU Critically high <=0.59 [facility] Comment on above: Performed By: #### B MP #### [facility] [address] [place] [address] Dr. Abril Richmond D-DIMER COMMENTS SEE BELOW Normal [facility] Comment on above: Result Comment: Incr eases in D-Dimer concentration observed with thromboembolic events can be variable due to localization, size, and age of the thrombus. Therefore, a thromboembolic event cannot be diagnosed with certainty on the basis of the reference range. D-Dimers may also be elevated for a variety of disorders including: advanced age, , coronary disease, cancer, liver disease, infection, inflammation, hematoma, DIC, trauma, post-surgery, diabetes, thrombolytic or anticoagulant therapy, stress, and generalized hospitalization. Performed By: #### B MP #### [facility] [address] [place] [address] Dr. Abril Richmond LACTATE/LACTIC ACIDon 2022 Lactate [Moles/Vol] 0.8 mmol/L Normal 0.4-2.0 [facility] Comment on above: Performed By: #### L ACT #### [facility] [address] [place] [address] Dr. Abril Richmond PROF 14(COMP METB)on 023 Albumin [Mass/Vol] 3.4 g/dL Normal 3.4-5.0 [facility] Comment on above: Performed By: #### C MP, HSTROPN, BNP #### [facility] [address] [place] [address] Dr. Abril Richmond Albumin/Globulin [Mass ratio] 0.9 {ratio} Normal [facility] Comment on above: Performed By: #### C MP, HSTROPN, BNP #### [facility] [address] [place] [address] Dr. Abril Richmond ALP [Catalytic activity/Vol] 73 U/L Normal 46-116 [facility] Comment on above: Performed By: #### C MP, HSTROPN, BNP #### [facility] [address] [place] [address] Dr. Abril Richmond ALT [Catalytic activity/Vol] 29 U/L Normal 14-59 [facility] Comment on above: Performed By: #### C MP, HSTROPN, BNP #### [facility] [address] [place] [address] Dr. Abril Richmond Anion gap [Moles/Vol] 11.4 mmol/L Normal [facility] Comment on above: Performed By: #### C MP, HSTROPN, BNP #### [facility] [address] [place] [address] Dr. Abril Richmond AST [Catalytic activity/Vol] 22 U/L Normal 15-37 [facility] Comment on above: Performed By: #### C MP, HSTROPN, BNP #### [facility] [address] [place] [address] Dr. Abril Richmond Bilirubin [Mass/Vol] 0.3 mg/dL Normal 0.2-1.0 [facility] Comment on above: Performed By: #### C MP, HSTROPN, BNP #### [facility] [address] [place] [address] Dr. Abril Richmond Calcium [Mass/Vol] 8.4 mg/dL Critically low 8.5-10.1 [facility] Comment on above: Performed By: #### C MP, HSTROPN, BNP #### [facility] [address] [address] [address] Abril Richmond Chloride [Moles/Vol] 104 mmol/L Normal 98-107 [facility] Comment on above: Performed By: #### C MP, HSTROPN, BNP #### [facility] [address] [address] [address] Abril Richmond CO2 [Moles/Vol] 28.0 mmol/L Normal 21.0-32.0 [facility] Comment on above: Performed By: #### C MP, HSTROPN, BNP #### [facility] [address] [address] [address] Abril Richmond Creatinine [Mass/Vol] 0.96 mg/dL Normal 0.55-1.02 [facility] Comment on above: Performed By: #### C MP, HSTROPN, BNP #### [facility] [address] [place] [address] Dr. Abril Richmond EGFR-AF KAZAKH >60 Normal >=60 [facility] Comment on above: Performed By: #### C MP, HSTROPN, BNP #### [facility] [address] [address] [address] Abril Richmond EGFR-NON AF KAZAKH >60 Normal >=60 [facility] Comment on above: Performed By: #### C MP, HSTROPN, BNP #### [facility] [address] [address] [address] Abril Richmond Globulin (S) [Mass/Vol] 3.8 g/dL Normal [facility] Comment on above: Performed By: #### C MP, HSTROPN, BNP #### [facility] [address] [address] [address] Abril Richmond Glucose [Mass/Vol] 115 mg/dL Critically high 74-106 [facility] Comment on above: Performed By: #### C MP, HSTROPN, BNP #### [facility] [address] [address] [address] Abril Richmond Potassium [Moles/Vol] 3.4 mmol/L Critically low 3.5-5.1 [facility] Comment on above: Performed By: #### C MP, HSTROPN, BNP #### [facility] [address] [place] [address] Dr. Abril Richmond Protein [Mass/Vol] 7.2 g/dL Normal 6.4-8.2 [facility] Comment on above: Performed By: #### C MP, HSTROPN, BNP #### [facility] [address] [place] [address] Dr. Abril Richmond Sodium [Moles/Vol] 140 mmol/L Normal 136-145 [facility] Comment on above: Performed By: #### C MP, HSTROPN, BNP #### [facility] [address] [place] [address] Dr. Abril Richmond Urea nitrogen [Mass/Vol] 14.0 mg/dL Normal 7.0-18.0 [facility] Comment on above: Performed By: #### C MP, HSTROPN, BNP #### [facility] [address] [place] [address] Dr. Abril Richmond Urea nitrogen/Creatinine [Mass ratio] 14.6 mg/mg Normal [facility] Comment on above: Performed By: #### C MP, HSTROPN, BNP #### [facility] [address] [place] [address] Dr. Abril Richmond RESPIRATORY PANEL PLUSon Adenovirus Not detected Normal NOT DETECTED [facility] Comment on above: Performed By: #### F T4 #### [facility] [address] [place] [address] Dr. Abril Zhu. Parapertusis Not detected Normal NOT DETECTED [facility] Comment on above: Performed By: #### F T4 #### [facility] [address] [place] [address] Dr. Abril Frye Pertussis Not detected Normal NOT DETECTED [facility] Comment on above: Performed By: #### F T4 #### [facility] [address] [place] [address] Dr. Abril Richmond Chlamydia Pneumoniae Not detected Normal NOT DETECTED [facility] Comment on above: Performed By: #### F T4 #### [facility] [address] [place] [address] Dr. Abril Richmond Coronavirus 229E Not detected Normal NOT DETECTED [facility] Comment on above: Performed By: #### F T4 #### [facility] [address] [place] [address] Dr. Abril Richmond Coronavirus HKU1 Not detected Normal NOT DETECTED [facility] Comment on above: Performed By: #### F T4 #### [facility] [address] [place] [address] Dr. Abril Richmond Coronavirus NL63 Not detected Normal NOT DETECTED [facility] Comment on above: Performed By: #### F T4 #### [facility] [address] [place] [address] Dr. Abril Richmond Coronavirus OC43 Not detected Normal NOT DETECTED [facility] Comment on above: Performed By: #### F T4 #### [facility] [address] [place] [address] Dr. Abril Richmond Influenza A H1 Not detected Normal NOT DETECTED [facility] Comment on above: Performed By: #### F T4 #### [facility] [address] [place] [address] Dr. Abril Richmond Influenza A H1 2009 Not detected Normal NOT DETECTED [facility] Comment on above: Performed By: #### F T4 #### [facility] [address] [place] [address] Dr. Abril Richmond Influenza A H3 Not detected Normal NOT DETECTED [facility] Comment on above: Performed By: #### F T4 #### [facility] [address] [place] [address] Dr. Abril Richmond Influenza B Not detected Normal NOT DETECTED [facility] Comment on above: Performed By: #### F T4 #### [facility] [address] [place] [address] Dr. Abril Richmond Metapneumovirus Not detected Normal NOT DETECTED [facility] Comment on above: Performed By: #### F T4 #### [facility] [address] [place] [address] Dr. Abril Richmond Mycoplas. Pneumoniae Not detected Normal NOT DETECTED [facility] Comment on above: Performed By: #### F T4 #### [facility] [address] [place] [address] Dr. Abril Richmond Parainfluenza 1 Not detected Normal NOT DETECTED [facility] Comment on above: Performed By: #### F T4 #### [facility] [facility] [address] [place] [address] Dr. Abril Richmond Parainfluenza 2 Not detected Normal NOT DETECTED [facility] Comment on above: Performed By: #### F T4 #### [facility] [address] [place] [address] Dr. Abril Richmond Parainfluenrowan 3 Detected Abnormal NOT DETECTED The [facility] Comment on above: Performed By: #### F T4 #### [facility] [address] [place] [address] Dr. Abril Richmond Parainfluenza 4 Not detected Normal NOT DETECTED [facility] Comment on above: Performed By: #### F T4 #### [facility] [address] [place] [address] Dr. Abril Richmond Rhino/Enterovirus Not detected Normal NOT DETECTED The [facility] Comment on above: Performed By: #### F T4 #### [facility] [address] [place] [address] Dr. Abril Richmond RP2 Header 1 RESPIRATORY PANEL: VIRUSES Normal The [facility] Comment on above: Performed By: #### F T4 #### [facility] [address] [place] [address] Dr. Abril Richmond RP2 Header 2 RESPIRATORY PANEL: BACTERIA Normal The [facility] Comment on above: Performed By: #### F T4 #### [facility] [address] [place] [address] Dr. Abril Richmond RSV Not detected Normal NOT DETECTED The [facility] Comment on above: Performed By: #### F T4 #### [facility] [address] [place] [address] Dr. Abril Richmond SARS-CoV-2 (COVID-19) RNA JORDI+probe Ql (Unsp spec) Not detected Normal NOT DETECTED The [facility] Comment on above: Performed By: #### F T4 #### [facility] [address] [address] [address] Abril Richmond TROPONIN, HIGH SENSITIVITYon 10-10-2022 HSTROP 5.3 pg/mL Normal 4.0-51.3 The [facility] Comment on above: Result Comment: CUT- OFF POINTS HAVE BEEN ESTABLISHED BASED ON THE FOURTH UNIVERSAL DEFINITIONS OF MYOCARDIAL INFARCTION. THE UPPER REFERENCE LIMIT (URL) OF TROPONIN, DEFINED THE 99TH PERCENTILE OF cTnI DISTRIBUTION IN A REFERENCE POPULATION, HAS BEEN CONFIRMED THE DECISION THRESHOLD FOR PR DIAGNOSIS. Performed By: #### C MP, HSTROPN, BNP #### [facility] [address] [address] [address] Abril Richmond ECHOCARDIO M/2D COMPLETEon 1 06-10-2021 ECHOCARDIO M/2D COMPLETE Patient: ADRIANNA CAMARGO Exam Date: 04/10/2022 : 1970 Gender:F Ordering : DR MICHELLE PATTERSON . Admission #: [id number] Family : Order #: [id number] CLICK HERE TO VIEW EXAM ECHOCARDIOGRAM REPORT PROCEDURE: CARDIO PULMONARY ECHOCARDIO M/2D COMP INDICATIONS: Shortness of breath, Leg edema, fatigue COMPARISON: None. DESCRIPTION: COMPLETE ECHOCARDIOGRAM Real-time transthoracic echocardiography with 2D, M-mode, spectral and color flow Doppler performed. QUALITY: Technical quality was good. LEFT VENTRICLE: Normal chamber size. No left ventricular hypertrophy. Global left ventricular systolic function is normal. LV EF: Estimated left ventricular ejection fraction is 65-70% DIASTOLIC: Normal diastolic function. ATRIAL SEPTUM: LEFT ATRIUM: Normal chamber size. RIGHT ATRIUM: Normal chamber size. RIGHT VENTRICLE: Normal chamber size. Normal right ventricular systolic function. TRICUSPID VALVE: Normal mobility and thickness. No stenosis with mild regurgitation. No evidence of pulmonary hypertension. RVSP 27 mmHg MITRAL VALVE: Normal mobility and thickness. No mitral valve prolapse. No evidence of mitral valve stenosis. There is no mitral annular calcification. Trivial mitral regurgitation. AORTIC VALVE: Normal trileaflet appearance. No visible sclerosis. Normal leaflet mobility. No evidence of aortic valve stenosis. DVI 0.6. Trivial aortic regurgitation. AORTIC ROOT: Normal diameter and appearance. PULMONIC VALVE: Normal thickness and mobility. No stenosis. Trivial regurgitation. PERICARDIUM: No evidence of pericardial effusion. IVC: Collapses with inspirations. Normal size PLEURA: CONCLUSION: 1. Normal ventricular function. LVEF is 65 to 70%. 2. No significant valvular dysfunction. 3. Normal right-sided pressures. 4. No pericardial effusion. Adult Echocardiography Procedure Report Left Ventricle LVEDD (3.7 - 5.6 cm): 4.63 cm LVESD (2.2 - 4.0 cm): 2.91 cm LVIVS thickness (0.6 - 1.2 cm): 0.98 cm LVPW thickness (0.5 - 1.0 cm): 0.87 cm e': 0.12 m/s E - e': 7.83 LVOT Max Gradient: 4.02 mm[Hg] Peak Velocity (LVOT): 1.00 m/s Mean Velocity (LVOT): 0.66 m/s LVOT Diameter 1.77 cm Left Ventricular Ejection Fraction: 65-70 % Left Atrium LA Volume Index (2D A2C): 46.43 ml, 46.43 ml Left Atrium Systolic Dimension: 3.40 cm Mitral Valve MV E to A Ratio: 1.30 Mitral Valve A-Wave Peak Velocity: 0.75 m/s Mitral Valve E-Wave Peak Velocity: 0.97 m/s Right Ventricle RV Internal Diastolic Dimension: 3.09 cm Aorta AO Root Diam: 2.61 cm Ascending Ao Diam: 2.47 cm Aortic Valve AoV Area (Peak Nathaniel): 1.60 cm2, 1.60 cm2 AoV Area (VTI): 1.74 cm2, 1.74 cm2 Peak Velocity(Antegrade Flow): 1.55 m/s Peak Gradient(Antegrade Flow): 9.55 mm[Hg] Mean Velocity(Antegrade Flow): 1.05 m/s Mean Gradient(Antegrade Flow): 5.06 mm[Hg] Velocity Time Integral: 33.29 cm Tricuspid Valve Peak Velocity (Regurgitant Flow): 1.79 m/s, 2.33 m/s, 2.45 m/s Pulmonic Valve Mean Gradient: 3.20 mm[Hg] Mean Velocity: 0.84 m/s Peak Velocity: 1.12 m/s, 1.00 m/s Peak Gradient: 3.99 mm[Hg], 5.01 mm[Hg] Right Atrium Right Atrium Systolic Pressure: 34.40 ml, 34.40 ml Dictated by: Dionisio Sim M.D. on 04/11/2022 at 18:45 Approved by: Dionisio Sim M.D. on 04/11/2022 at 18:48 Normal The [facility] CBC AUTO DIFFon 03-09-2022 BASO # 0.0 103/ul Normal 0.0-0.1 [facility] Comment on above: Performed By: #### B MP #### [facility] [address] [address] [address] Abril Richmond Basophils/100 WBC (Bld) 0.5 % Normal 0.2-2.0 [facility] Comment on above: Performed By: #### B MP #### [facility] [address] [address] [address] Abril Richmond EO # 0.2 103/ul Normal 0.0-0.7 [facility] Comment on above: Performed By: #### B MP #### [facility] [address] [address] [address] Abril Richmond Eosinophils/100 WBC (Bld) 2.0 % Normal 0.9-7.0 [facility] Comment on above: Performed By: #### B MP #### [facility] [address] [place] [address] Dr. Abril Richmond Erythrocyte distribution width (RBC) [Ratio] 12.7 % Normal 11.0-15.0 [facility] Comment on above: Performed By: #### B MP #### [facility] [address] [address] [address] Abril Richmond Hematocrit (Bld) [Volume fraction] 39.8 % Normal 36.0-48.0 [facility] Comment on above: Performed By: #### B MP #### [facility] [address] [place] [address] Dr. Abril Richmond Hemoglobin (Bld) [Mass/Vol] 13.0 g/dL Normal 12.0-16.0 The [facility] Comment on above: Performed By: #### B MP #### [facility] [address] [place] [address] Dr. Abril Richmond IG # 0.03 10e3/ul Normal 0.00-0.03 [facility] Comment on above: Performed By: #### B MP #### [facility] [address] [place] [address] Dr. Abril Richmond IG % 0.4 % Normal 0.0-0.5 [facility] Comment on above: Performed By: #### B MP #### [facility] [address] [place] [address] Dr. Abril Richmond LYMPH # 1.9 103/ul Normal 1.2-3.8 The [facility] Comment on above: Performed By: #### B MP #### [facility] [address] [place] [address] Dr. Abril Richmond Lymphocytes/100 WBC (Bld) 24.1 % Normal 20.5-60.0 [facility] Comment on above: Performed By: #### B MP #### [facility] [address] [place] [address] Dr. Abril Richmond MANUAL DIFF REQ NO Normal [facility] Comment on above: Performed By: #### B MP #### [facility] [address] [place] [address] Dr. Abril Richmond MCH (RBC) [Entitic mass] 30.0 pg Normal 26.7-34.0 [facility] Comment on above: Performed By: #### B MP #### [facility] [address] [place] [address] Dr. Abril Richmond MCHC (RBC) [Mass/Vol] 32.7 g/dL Normal 29.9-35.2 The [facility] Comment on above: Performed By: #### B MP #### [facility] [address] [place] [address] Dr. Abril Richmond MCV (RBC) [Entitic vol] 91.7 fL Normal 81.0-99.0 [facility] Comment on above: Performed By: #### B MP #### [facility] [address] [place] [address] Dr. Abril Richmond MONO # 0.6 103/ul Normal 0.3-0.8 The [facility] Comment on above: Performed By: #### B MP #### [facility] [address] [place] [address] Dr. Abril Richmond Monocytes/100 WBC (Bld) 7.3 % Normal 1.7-12.0 The [facility] Comment on above: Performed By: #### B MP #### [facility] [address] [place] [address] Dr. Abril Richmond NEUT # 5.2 103/ul Normal 1.4-6.5 The [facility] Comment on above: Performed By: #### B MP #### [facility] [address] [place] [address] Dr. Abril Richmond Neutrophils/100 WBC (Bld) 65.7 % Normal 43.0-75.0 [facility] Comment on above: Performed By: #### B MP #### [facility] [address] [place] [address] Dr. Abril Richmond Platelet mean volume (Bld) [Entitic vol] 8.9 fL Critically low 9.5-13.5 The [facility] Comment on above: Performed By: #### B MP #### [facility] [address] [place] [address] Dr. Abril Richmond PLT 408 103/ul Normal 150-450 The [facility] Comment on above: Performed By: #### B MP #### [facility] [address] [place] [address] Dr. Abril Richmond RBC 4.34 106/ul Normal 4.20-5.40 The [facility] Comment on above: Performed By: #### B MP #### [facility] [address] [place] [address] Dr. Abril Richmond WBC 8.0 103/ul Normal 4.0-11.0 The [facility] Comment on above: Performed By: #### B MP #### [facility] [address] [place] [address] Dr. Abril Richmond FREE T3on 03-09-2022 FREE T3 2.58 pg/mlL Normal 2.18-3.98 The [facility] Comment on above: Performed By: #### T SH, FT3, BMP #### [facility] [address] [address] [address] Abril Richmond FREE T4on 03-09-2022 Free T4 [Mass/Vol] 1.04 ng/dL Normal 0.76-1.46 [facility] Comment on above: Performed By: #### F T4 #### [facility] [address] [place] [address] Dr. Abril Richmond PROF CHEM 8 (BAS METB)on Anion gap [Moles/Vol] 8.2 mmol/L Normal [facility] Comment on above: Performed By: #### B MP #### [facility] [address] [place] [address] Dr. Abril Richmond Calcium [Mass/Vol] 8.7 mg/dL Normal 8.5-10.1 [facility] Comment on above: Performed By: #### B MP #### [facility] [address] [place] [address] Dr. Abril Richmond Chloride [Moles/Vol] 105 mmol/L Normal 98-107 The [facility] Comment on above: Performed By: #### B MP #### [facility] [address] [place] [address] Dr. Abril Richmond CO2 [Moles/Vol] 27.0 mmol/L Normal 21.0-32.0 [facility] Comment on above: Performed By: #### B MP #### [facility] [address] [place] [address] Dr. Abril Richmond Creatinine [Mass/Vol] 0.81 mg/dL Normal 0.55-1.02 The [facility] Comment on above: Performed By: #### B MP #### [facility] [address] [place] [address] Dr. Abril Richmond EGFR-AF KAZAKH >60 Normal >=60 [facility] Comment on above: Performed By: #### B MP #### [facility] [address] [address] [address] Abril Richmond EGFR-NON AF KAZAKH >60 Normal >=60 [facility] Comment on above: Performed By: #### B MP #### [facility] [address] [address] [address] Abril Richmond Glucose [Mass/Vol] 79 mg/dL Normal 74-106 [facility] Comment on above: Performed By: #### B MP #### [facility] [address] [address] [address] Abril Richmond Potassium [Moles/Vol] 4.2 mmol/L Normal 3.5-5.1 [facility] Comment on above: Performed By: #### B MP #### [facility] [address] [address] [address] Abril Richmond Sodium [Moles/Vol] 136 mmol/L Normal 136-145 [facility] Comment on above: Performed By: #### B MP #### [facility] [address] [address] [address] Abril Richmond Urea nitrogen [Mass/Vol] 17.0 mg/dL Normal 7.0-18.0 [facility] Comment on above: Performed By: #### B MP #### [facility] [address] [address] [address] Abril Richmond Urea nitrogen/Creatinine [Mass ratio] 21.0 mg/mg Normal [facility] Comment on above: Performed By: #### B MP #### [facility] [address] [address] [address] Abril Richmond TSHon 03-09-2022 TSH 1.342 uIU/mL Normal 0.358-3.740 [facility] Comment on above: Performed By: #### B MP #### [facility] [id number] Abril Richmond Vital Signs Date Time Vital Sign Value Performing Clinician Facility 03-05-2023 13:00-0400 Body height 167.64 cm Shannon Peñaloza Other [facility] 03-05-2023 13:00-0400 Body mass index (BMI) [Ratio] 31.47 kg/m2 Shannon Husseinmond Other [facility] 03-05-2023 13:00-0400 Body temperature 98 [degF] Shannon Husseinmond Other [facility] 03-05-2023 13:00-0400 Body weight 88.45 kg Shannon Husseinmond Other [facility] 03-05-2023 13:00-0400 Diastolic blood pressure 79 mm[Hg] Shannon Anabela Other [facility] 03-05-2023 13:00-0400 Respiratory rate 18 /min Shannon Anabela Other [facility] 03-05-2023 13:00-0400 SaO2% (BldA) [Mass fraction] 95 % Shannon Husseinmond Other [facility] 03-05-2023 13:00-0400 Systolic blood pressure 127 mm[Hg] Shannon Husseinmond Other [facility] Other Encounters Encounter Date Encounter Type Care Provider Facility Start: 03-05-2023 End: 03-05-2023 ambulatory Shannon Anabela Other [facility] Start: 03-05-2023 Office outpatient visit 15 minutes Shannon Peñaloza [facility] Start: 02-27-2023 End: 02-27-2023 ambulatory [facility] Start: 10-11-2022 End: 10-12-2022 Evaluation and management of inpatient DR MICHELLE PATTERSON Facility: Start: 04-10-2022 End: 04-11-[address] MICHELLE PATTERSON Facility:[facility] Start: 03-09-2022 End: 03-10-[address] MICHELLE PATTERSON Facility:[facility] Payers Date Payer Category Payer Unknown [id number] [id number] [id number] 1970 Unknown [id number] [id number] 1970 Unknown [id number] [id number] [id number] 1957 Private Health Insurance [id number] 1957 Unknown [id number] Social History Date Type Detail Facility Unknown if ever smoked [facility] Sex Assigned At Sex Assigned At Bir th [facility] Evaluation note 03-05-2023 Note Date & Type Note Facility 03-05-2023 Evaluation note Encounter Date Diagnosis Assessment Notes Feb, Bronchitis (ICD-10 - J40) Drink plenty fluids, get plenty of rest. Take the azithromycin as prescribed until gone. Continue home medications as prescribed. 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 Follow-up as instructed. Follow-up with your cardiology testing as scheduled. Go to the ER for worsening symptoms or concerns. [facility] Progress note 02-27-2023 Note Date & Type Note Facility 02-27-2023 Note New patient here to establish care. Ref from Dr. Nesbitt for SOB and chest pressure. She was admitted to [facility] in September 2022 for respiratory failure secondary to parainfluenza virus. Still gets SOB with very minimal exertion. Denies palpitations but gets lightheaded at times. Was tested for COSTA and was very mild. Review of Systems Cardiovascular: Positive for chest pain (pressure, heaviness) and dyspnea on exertion. Respiratory: Positive for cough and shortness of breath. Musculoskeletal: Positive for joint pain. Neurological: Positive for headaches and light-headedness. All other systems reviewed and are negative. [facility] History general Narrative - Reported 09-18-2022 Note Date & Type Note Facility 09-18-2022 History general N arrative - Reported Type Surgical History wisdom teeth extract Hospitalization History parainfluenza with hypox ia 09/2022 [facility] Summary Purpose Family History No Family History Records FoundNo Family History Records Found Advance Directives No Advanced Directives Records FoundNo Advanced Directives Records Found Additional Source Comments INFORMATION SOURCE (unrecogn ized section and content) DATE CREATED AUTHOR 10/28/2022 [facility] DATE CREATED AUTHOR AUTHOR'S ORGANIZ ATION 03/01/2023 [facility] REASON FOR VISIT (unrecogniz ed section and content) STARTED COLD, SETTLING IN CHEST, TIRED FOR RECORDS PERTAINING TO PATIENTS WHO ARE OR HAVE BEEN ENROLLED IN A CHEMICAL DEPENDENCY/SUBSTANCEABUSE PROGRAM, SOME INFORMATION MAY BE OMITTED. This clinical summary was aggregated from multiple sources. Caution should be exercised in using it in the provision of clinical care. This summary normalizes information from multiple sources, and as a consequence, information in this document may materially change the coding, format and clinical context of patient data. In addition, data may be omitted in some cases. CLINICAL DECISIONS SHOULD BE BASED ON THE PRIMARY CLINICAL RECORDS. [employer] provides no warranty or guarantee of the accuracy or completeness of information in this document.
[2023-05-13] MEDS: BENZONATATE 100 MG CAPSULE PO (09:36)
[2023-05-13 10:06] LABS: Influenza Virus A Antigen Negative; Influenza Virus B Antigen Negative; Internal Control Within Normal Limits; SARS-CoV-2 Ag NEGATIVE (NEGATIVE)
[2023-05-13 10:08] VITALS: BP 108/60; PULSE 88; RESP 20; O2SAT 92
--- NOTE | 2023-05-13 10:37 | PC.NURSE ---
Drinking fluids by mouth without N & V.
[2023-05-13 12:28] LABS: SARS-CoV-2 NAA NOT DETECTED (NOT DETECTE)
== END 2023-05-13 10:55 | disposition home or self-care (01) ==
PROVIDERS: Emergency Provider Emergency Medicine; PCP Family Medicine
DX: R11.2 Nausea with vomiting, unspecified (principal); R19.7 Diarrhea, unspecified
CPT/HCPCS: 36415; 80048; 85025; 87635; 87804; 87811; 96361; 96374; 99284

== ENCOUNTER 2023-05-15 18:03 | Emergency (ER) | payer OTHER, BC, SELFPAY ==
[2023-05-15 18:17] VITALS: BP 136/67; PULSE 83; RESP 24; TEMP 37.2; O2SAT 94; BMI 30.7
--- NOTE | 2023-05-15 18:24 | XR_ITS ---
[address] [address] Patient Name: ADRIANNA CAMARGO MRN: [id number] date: 1970 Sex: F Assigned Patient Location: ER Current Patient Location: Accession/Order Number: [id number] Exam Date: 05/15/2023 18:29 Report Date: 05/15/2023 19:45 At the request of: VALERIE BAKER Procedure: XR chest 2V EXAMINATION: XR chest 2V HISTORY: Shortness of breath COMPARISON: Chest CT 02/15/2023 TECHNIQUE: PA and lateral chest x-rays FINDINGS: The lung parenchyma is free of consolidation or infiltrate. No pneumothorax or pleural effusion. The cardiac, mediastinal and hilar contours are normal. The visualized osseous structures exhibit no gross abnormality. XR/XR chest 2V IMPRESSION: No acute cardiopulmonary abnormality. Electronically authenticated by: ZION HAYNES Date: 05/15/2023 19:45
[2023-05-15 18:52] VITALS: BP 133/78; PULSE 85; RESP 20; O2SAT 92
[2023-05-15 18:56] VITALS: O2SAT 95
--- NOTE | 2023-05-15 19:00 | ED.GENADUL1 ---
HPI - General Adult General Chief complaint: Nausea/Vomiting/Diarrhea Stated complaint: Flu Like Symptoms Time Seen by Provider: 05/15/23 18:22 Source: patient Mode of arrival: walk-in Limitations: no limitations History of Present Illness HPI narrative: patient had cough and flu-like illness that began several days ago. She was evaluated in the ED 05/13/23 and had negative covid and influenza swabs. She has been taking robitussin OTC but continues to have chest congestion and felt like she couldn't catch her breath after coughing fits today - so she went to the urgent care. They told her that her pulse ox on room air was in the 80s and sent her to the ED to be evaluated. In our ED the patient has a pulse ox >94% Related Data Previous Rx's Medication Instructions Recorded ondansetron 4 mg disintegrating 4 mg PO Q6H PRN nausea and 05/13/23 tablet vomiting #20 tabs albuterol sulfate 90 mcg/actuation 2 inh inhalation Q6H PRN shortness 05/15/23 aerosol inhaler of breath or wheezing #6.7 grams Allergies Allergy/AdvReac Type Severity Reaction Status Date / Time No Known Drug Allergies Allergy Verified 05/13/23 08:59 PFSH PFSH Social History Smoking status: Never smoker Exam Narrative Exam Narrative: Nurses notes and vital signs reviewed and patient is not hypoxic. afebrile General: Well-appearing and in no apparent distress. Skin: Warm, dry, no pallor noted. No rash. Head: Normocephalic, atraumatic. Neck: Supple, non-tender. No cervical lymphadenopathy Eye: Pupils are equal, round and EOMI. No scleral icterus. Ears, Nose, Mouth, and Throat: TM are clear, no posterior oropharynx erythema or nasal mucosal hypertrophy, uvula is mid-line Oral mucosa is moist Cardiovascular: Regular Rate and Rhythm without murmur, gallop or rub. Respiratory: No accessory muscle use or respiratory distress. Lungs with scattered rhonchi, no wheezing or rales. Musculoskeletal: normal ROM, no calf or popliteal tenderness, no lower extremity edema/swelling Neurological: A&O x4. No cranial nerve dysfunction observed. No truncal ataxia. Moves all extremities. Sensation intact. Psychiatric: Cooperative and interactive. Normal mood and affect. Constitutional Vital Signs, click to edit/add: Last Vital Signs Temp 99 F 05/15/23 18:17 Pulse 85 05/15/23 18:52 Resp 20 05/15/23 18:52 BP 133/78 05/15/23 18:52 Pulse Ox 95 05/15/23 18:56 O2 Del Method Room Air 05/15/23 18:17 Course Vital Signs Vital signs: Vital Signs Temperature 99 F 05/15/23 18:17 Pulse Rate 83 05/15/23 18:17 Respiratory Rate 24 05/15/23 18:17 Blood Pressure 136/67 05/15/23 18:17 Pulse Oximetry 94 L 05/15/23 18:17 Oxygen Delivery Method Room Air 05/15/23 18:17 Temperature 99 F 05/15/23 18:17 Pulse Rate 85 05/15/23 18:52 Respiratory Rate 20 05/15/23 18:52 Blood Pressure 133/78 05/15/23 18:52 Pulse Oximetry 95 05/15/23 18:56 Oxygen Delivery Method Room Air 05/15/23 18:17 Medical Decision Making MDM Narrative Medical decision making narrative: Chest x-ray obtained. No focal infiltrate identified. The patient believes she might have asthma and therefore I thought she might benefit from an albuterol metered-dose inhaler. I also recommend that she switch to a mucolytic such as Mucinex and discontinue the Robitussin. Imaging Data Chest x-ray: My impression: NAD Discharge Plan Discharge Chief Complaint: Nausea/Vomiting/Diarrhea Clinical Impression: URI (upper respiratory infection), Viral illness Patient Disposition: Home, Self-Care Time of Disposition Decision: 19:04 Prescriptions / Home Meds: New albuterol sulfate 90 mcg/actuation HFA aerosol inhaler 2 inh inhalation Q6H PRN (Reason: shortness of breath or wheezing) Qty: 6.7 0RF No Action ondansetron 4 mg tablet,disintegrating 4 mg PO Q6H PRN (Reason: nausea and vomiting) Qty: 20 0RF Instructions: Upper Respiratory Infection (ED), Viral Syndrome (ED) Stand Alone Forms: Portal Instructions Referrals: Regan Crain MD [Primary Care Provider] - 1 week
== END 2023-05-15 19:33 | disposition home or self-care (01) ==
PROVIDERS: Emergency Provider Emergency Medicine; PCP Family Medicine
DX: J06.9 Acute upper respiratory infection, unspecified (principal); B34.9 Viral infection, unspecified
CPT/HCPCS: 71046; 99283

== ENCOUNTER 2024-01-04 08:54 | Outpatient (OUT) | payer OTHER, BC, SELFPAY ==
--- OUTSIDE RECORDS SUMMARY | 2024-01-04 09:00 | XMS_ITS | CCD ---
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 Sixth Grade Teacher Name Role Phone YESENIA, DR MICHELLE Schafer Primary Care Unavailable OCTAVIANO, DR JUNG Bingham Consulting Unavailable SHAIKH Luis RODRIGUEZ Admitting Unavailable SHAIKH Luis RODRIGUEZ Attending Unavailable MARKER ., DR SULLIVAN Consulting Unavailable SHAIKH Luis RODRIGUEZ Consulting Unavailable PEGGY CALVIN Consulting Unavailable SISTER, GWENDOLYN Consulting Unavailable YESENIA, DR MICHELLE Schafer Primary Care Unavailable NADEREOtilia, DR MICHELLE Schafer Consulting Unavailable NADEREOtilia, DR MICHELLE Schafer Attending Unavailable NADERER, DR MICHELLE Schafer Admitting Unavailable NADERER, DR MICHELLE Schafer Primary Care Unavailable NADERER, DR MICHELLE Schafer Consulting Unavailable NADEREOtilia, DR MICHELLE Schafer Attending Unavailable NADERER, DR MICHELLE Schafer Admitting Unavailable Shannon Peñaloza Unavailable Marycarmen Jean Unavailable ALECIA COHEN Attending Unavailable ALECIA COHEN Attending Unavailable ALECIA COHEN Attending Unavailable SHAIKH RODRIGUEZ Attending Unavailable MICHELLE PATTERSON Attending Unavailable CHICO JERONIMO Attending Unavailable CHICO JERONIMO Referring Unavailable Medications Completed/Discontinued Medications Medication Drug Class(es) Dates Sig (Normalized) Sig (Original) azithromycin 250 mg oral tablet (2 sources) Macrolide Antimicrobial Start: 03-05-2023 Azithromycin 250 MG 2 tablet on the first day, then 1 tablet daily for 4 days Orally Once a day for 5 day(s) Feb, Not-Taking/PRN Problems Active Problems Problem Classification Problem Date [...] not specified as acute or chronic Episodic Other lower respiratory disease (1 source) [...] fatigue; Translations: [OTHER FATIGUE] Onset: 03-09-2022 Episodic Nonspecific chest pain (2 sources) Chest pain, unspecified; Translations: [Chest pain, unspecified] Onset: 02-27-2023 Episodic Other lower respiratory disease (4 sources) Shortness of breath; Translations: [SHORTNESS OF BREATH] Onset: 04-10-2022 Episodic Residual codes; unclassified (1 source) Localized edema; Translations: [LOCALIZED EDEMA] Onset: 04-15-2022 Episodic Results Test Name Value Interpretation Reference Range Facility Office Visiton 08-20-2023 Follow-up visit [id number] Raysa Tejada 1970 F Date Provider Department Center 08/20/2023 ALECIA MASTERSON Family History Problem Relation Age of Onset Other Mother Coronary artery disease Mother Family Status - Relation Status Age at Mother Level of Service:74531 PA OFFICE/OUTPATIENT ESTABLISHED LOW MDM 20 MIN Reason for Visit and Comments: Follow-up [587829] - 3 month follow up Normal [facility] Telemedicineon 06-01-2023 Telemedicine [id number] Raysa Tejada 1970 F Date Provider Department Center 06/01/2023 ALECIA MASTERSON Family History Problem Relation Age of Onset Other Mother Coronary artery disease Mother Family Status - Relation Status Age at Mother Level of Service:60085 PA OFFICE/OUTPATIENT ESTABLISHED LOW MDM 20 MIN Normal [facility] Office Visiton 02-27-2023 Follow-up visit [id number] Raysa Tejada 1970 F Date Provider Department Center 02/27/2023 ALECIA MASTERSON Family History Problem Relation Age of Onset Other Mother Coronary artery disease Mother Family Status - Relation Status Age at Mother Level of Service:47760 PA OFFICE/OUTPATIENT NEW MODERATE MDM 45-59 MINUTES Normal [facility] CULTURE BLOODon 10-15-2022 Microscopic examination of blood, [...] Trimethoprim/Sulfame thoxazole <=10 S C Normal [facility] Comment on above: Performed By: #### B MP #### [facility] [address] [place] [address] Dr. Abril Richmond CBC AUTO DIFFon 10-12-2022 BASO # 0.0 103/ul Normal 0.0-0.1 [facility] Comment on above: Performed By: #### B MP #### [facility] [address] [place] [address] Dr. Abril Richmond Basophils/100 WBC (Bld) 0.2 % Normal 0.2-2.0 [facility] Comment on above: Performed By: #### B MP #### [facility] [address] [place] [address] Dr. Abril Richmond EO # 0.0 103/ul Normal 0.0-0.7 [facility] Comment on above: Performed By: #### B MP #### [facility] [address] [place] [address] Dr. Abril Richmond Eosinophils/100 WBC (Bld) 0.1 % Critically low 0.9-7.0 [facility] Comment on above: Performed By: #### B MP #### [facility] [address] [place] [address] Dr. Abril Richmond Erythrocyte distribution width (RBC) [Ratio] 13.0 % Normal 11.0-15.0 [facility] Comment on above: Performed By: #### B MP #### [facility] [address] [address] [address] Abril Richmond Hematocrit (Bld) [Volume fraction] 33.6 % Critically low 36.0-48.0 [facility] Comment on above: Performed By: #### B MP #### [facility] [address] [address] [address] Abril Richmond Hemoglobin (Bld) [Mass/Vol] 10.9 g/dL Critically low 12.0-16.0 [facility] Comment on above: Performed By: #### B MP #### [facility] [address] [address] [address] Abril Richmond IG # 0.18 10e3/ul Critically high 0.00-0.03 [facility] Comment on above: Performed By: #### B MP #### [facility] [address] [place] [address] Dr. Abril Richmond IG % 1.4 % Critically high 0.0-0.5 [facility] Comment on above: Performed By: #### B MP #### [facility] [address] [place] [address] Dr. Abril Richmond LYMPH # 0.6 103/ul Critically low 1.2-3.8 [facility] Comment on above: Performed By: #### B MP #### [facility] [address] [place] [address] Dr. Abril Richmond Lymphocytes/100 WBC (Bld) 4.6 % Critically low 20.5-60.0 [facility] Comment on above: Performed By: #### B MP #### [facility] [address] [place] [address] Dr. Abril Richmond MANUAL DIFF REQ NO Normal [facility] Comment on above: Performed By: #### B MP #### [facility] [address] [place] [address] Dr. Abril Richmond MCH (RBC) [Entitic mass] 29.1 pg Normal 26.7-34.0 [facility] Comment on above: Performed By: #### B MP #### [facility] [address] [address] [address] Abril Richmond MCHC (RBC) [Mass/Vol] 32.4 g/dL Normal 29.9-35.2 [facility] Comment on above: Performed By: #### B MP #### [facility] [address] [address] [address] Abril Richmond MCV (RBC) [Entitic vol] 89.8 fL Normal 81.0-99.0 [facility] Comment on above: Performed By: #### B MP #### [facility] [address] [address] [address] Abril Richmond MONO # 0.5 103/ul Normal 0.3-0.8 [facility] Comment on above: Performed By: #### B MP #### [facility] [address] [address] [address] Abril Richmond Monocytes/100 WBC (Bld) 3.7 % Normal 1.7-12.0 [facility] Comment on above: Performed By: #### B MP #### [facility] [address] [address] [address] Abril Richmond NEUT # 12.0 103/ul Critically high 1.4-6.5 [facility] Comment on above: Performed By: #### B MP #### [facility] [address] [address] [address] Abril Richmond Neutrophils/100 WBC (Bld) 90.0 % Critically high 43.0-75.0 [facility] Comment on above: Performed By: #### B MP #### [facility] [address] [address] [address] Abril Richmond Platelet mean volume (Bld) [Entitic vol] 8.6 fL Critically low 9.5-13.5 [facility] Comment on above: Performed By: #### B MP #### [facility] [address] [address] [address] Abril Richmond PLT 334 103/ul Normal 150-450 [facility] Comment on above: Performed By: #### B MP #### [facility] [address] [address] [address] Abril Richmond RBC 3.74 106/ul Critically low 4.20-5.40 [facility] Comment on above: Performed By: #### B MP #### [facility] [address] [place] [address] Dr. Abril Richmond WBC 13.3 103/ul Critically high 4.0-11.0 [facility] Comment on above: Performed By: #### B MP #### [facility] [address] [place] [address] Dr. Abril Richmond PROF CHEM 8 (BAS METB)on Anion gap [Moles/Vol] 11.4 mmol/L Normal [facility] Comment on above: Performed By: #### B MP #### [facility] [address] [place] [address] Dr. Abril Richmond Calcium [Mass/Vol] 8.4 mg/dL Critically low 8.5-10.1 [facility] Comment on above: Performed By: #### B MP #### [facility] [address] [place] [address] Dr. Abril Richmond Chloride [Moles/Vol] 105 mmol/L Normal 98-107 [facility] Comment on above: Performed By: #### B MP #### [facility] [address] [place] [address] Dr. Abril Richmond CO2 [Moles/Vol] 28.5 mmol/L Normal 21.0-32.0 [facility] Comment on above: Performed By: #### B MP #### [facility] [address] [place] [address] Dr. Abril Richmond Creatinine [Mass/Vol] 0.81 mg/dL Normal 0.55-1.02 [facility] Comment on above: Performed By: #### B MP #### [facility] [address] [place] [address] Dr. Abril Richmond EGFR-AF DJIBOUTIAN >60 Normal >=60 [facility] Comment on above: Performed By: #### B MP #### [facility] [address] [address] [address] Abril Richmond EGFR-NON AF DJIBOUTIAN >60 Normal >=60 [facility] Comment on above: Performed By: #### B MP #### [facility] [address] [address] [address] Abril Richmond Glucose [Mass/Vol] 160 mg/dL Critically high 74-106 [facility] Comment on above: Performed By: #### B MP #### [facility] [address] [address] [address] Abril Richmond Potassium [Moles/Vol] 3.9 mmol/L Normal 3.5-5.1 [facility] Comment on above: Performed By: #### B MP #### [facility] [address] [address] [address] Abril Richmond Sodium [Moles/Vol] 141 mmol/L Normal 136-145 [facility] Comment on above: Performed By: #### B MP #### [facility] [address] [address] [address] Abril Richmond Urea nitrogen [Mass/Vol] 17.0 mg/dL Normal 7.0-18.0 [facility] Comment on above: Performed By: #### B MP #### [facility] [address] [address] [address] Abril Richmond Urea nitrogen/Creatinine [Mass ratio] 21.0 mg/mg Normal [facility] Comment on above: Performed By: #### B MP #### [facility] [address] [address] [address] Abril Richmond POINT OF CARE GLUCOSEon 09-19 Glucose [Mass/Vol] 167 mg/dL Critically high 74-106 [facility] Comment on above: Performed By: #### P OCGLUC #### [facility] [address] [address] [address] Abril Richmond XR CHEST 1 Von [...] JUNG BRUMFIELD Date: 2022-10-11 13:22 Normal [facility] BLOOD CULTURE ID PANELon A. baumannii Not detected Normal NOT DETECTED [facility] Comment on above: Performed By: #### B CID2 #### [facility] [address] [place] [address] Dr. Abril Richmond Bacteriodes fragilis Not detected Normal NOT DETECTED [facility] Comment on above: Performed By: #### B CID2 #### [facility] [address] [place] [address] Dr. Abril GRIFFITHD CONTROLS PASSED Normal [facility] Comment on above: Performed By: #### B CID2 #### [facility] [address] [place] [address] Dr. Abril GRIFFITHDBTHD BLOOD CULTURE BOTTLE INFORMATION Normal [facility] Comment on above: Performed By: #### B CID2 #### [facility] [address] [place] [address] Dr. Abril Richmond BCIDHD1 ANTIMICROBIAL RESISTANCE GENES Normal [facility] Comment on above: Performed By: #### B CID2 #### [facility] [address] [place] [address] Dr. Abril GRIFFITHDHD2 SEE BELOW Normal [facility] Comment on above: Result Comment: Note : Antimicrobial resitance can occur via multiple mechanisms. A Not Detected result for the [employer] antomicrobial resistance gene assays does not indicate antimicrobial susceptibility. Subculturing is required for species identification and susceptibility testing of isolates. Performed By: #### B CID2 #### [facility] [address] [place] [address] Dr. Abril Richmond BCIDHD3 Positive Normal [facility] Comment on above: Performed By: #### B CID2 #### [facility] [address] [place] [address] Dr. Abril Richmond BCIDHD4 Negative Normal [facility] Comment on above: Performed By: #### B CID2 #### [facility] [address] [place] [address] Dr. Abril Richmond BCIDHD5 YEAST Normal [facility] Comment on above: Performed By: #### B CID2 #### [facility] [address] [place] [address] Dr. Abril Richmond Bottle Set: Set 1 Normal [facility] Comment on above: Performed By: #### B CID2 #### [facility] [address] [place] [address] Dr. Abril Richmond Bottle: Aerobic Normal [facility] Comment on above: Performed By: #### B CID2 #### [facility] [address] [place] [address] Dr. Abril Richmond C. neoformans/gattii Not detected Normal NOT DETECTED [facility] Comment on above: Performed By: #### B CID2 #### [facility] [address] [place] [address] Dr. Abril Richmond Lucy albicans Not detected Normal NOT DETECTED [facility] Comment on above: Performed By: #### B CID2 #### [facility] [address] [place] [address] Dr. Abril Richmond Lucy auris Not detected Normal NOT DETECTED [facility] Comment on above: Performed By: #### B CID2 #### [facility] [address] [place] [address] Dr. Abril Richmond Lucy glabrata Not detected Normal NOT DETECTED [facility] Comment on above: Performed By: #### B CID2 #### [facility] [address] [place] [address] Dr. Abril Richmond Lucy Krusei Not detected Normal NOT DETECTED [facility] Comment on above: Performed By: #### B CID2 #### [facility] [address] [place] [address] Dr. Abril Richmond Lucy Parapsilosis Not detected Normal NOT DETECTED [facility] Comment on above: Performed By: #### B CID2 #### [facility] [address] [place] [address] Dr. Abril Richmond Lucy Tropicalis Not detected Normal NOT DETECTED [facility] Comment on above: Performed By: #### B CID2 #### [facility] [address] [place] [address] Dr. Abril Richmond CTX-M Resistant Gene Not Applicable Normal NOT DETECTE D [facility] Comment on above: Performed By: #### B CID2 #### [facility] [address] [place] [address] Dr. Abril Richmond E. Cloacae complex Not detected Normal NOT DETECTED [facility] Comment on above: Performed By: #### B CID2 #### [facility] [address] [place] [address] Dr. Abril Richmond E. faecalis Not detected Normal NOT DETECTED [facility] Comment on above: Performed By: #### B CID2 #### [facility] [address] [place] [address] Dr. Abril Richmond E. faecium Not detected Normal NOT DETECTED [facility] Comment on above: Performed By: #### B CID2 #### [facility] [address] [place] [address] Dr. Abril Richmond Enterobacteriaceae Not detected Normal NOT DETECTED [facility] Comment on above: Performed By: #### B CID2 #### [facility] [address] [place] [address] Dr. Abril Richmond Escherichia coli Not detected Normal NOT DETECTED [facility] Comment on above: Performed By: #### B CID2 #### [facility] [address] [place] [address] Dr. Abril Richmond H. influenzae Not detected Normal NOT DETECTED [facility] Comment on above: Performed By: #### B CID2 #### [facility] [address] [place] [address] Dr. Abril Richmond IMP Resistant Gene Not Applicable Normal NOT DETECTED [facility] Comment on above: Performed By: #### B CID2 #### [facility] [address] [place] [address] Dr. Abril Richmond K. oxytoca Not detected Normal NOT DETECTED [facility] Comment on above: Performed By: #### B CID2 #### [facility] [address] [place] [address] Dr. Abril Richmond K. pneumoniae Not detected Normal NOT DETECTED [facility] Comment on above: Performed By: #### B CID2 #### [facility] [address] [place] [address] Dr. Abril Richmond Klebsiella aerogenes Not detected Normal NOT DETECTED [facility] Comment on above: Performed By: #### B CID2 #### [facility] [address] [place] [address] Dr. Abril Richmond KPC Resistant Gene Not detected Normal NOT DETECTED [facility] Comment on above: Performed By: #### B CID2 #### [facility] [address] [place] [address] Dr. Abril Richmond List. monocytogenes Not detected Normal NOT DETECTED [facility] Comment on above: Performed By: #### B CID2 #### [facility] [address] [place] [address] Dr. Abril Richmond Mcr-1 Resistant Gene Not Applicable Normal NOT DETECTE D [facility] Comment on above: Performed By: #### B CID2 #### [facility] [address] [place] [address] Dr. Abril Richmond mecA/C Not Applicable Normal NOT DETECTED [facility] Comment on above: Performed By: #### B CID2 #### [facility] [address] [place] [address] Dr. Abril Richmond mecA/C MREJ Not Applicable Normal NOT DETECTED [facility] Comment on above: Performed By: #### B CID2 #### [facility] [address] [place] [address] Dr. Abril Richmond N. meningitidis Not detected Normal NOT DETECTED [facility] Comment on above: Performed By: #### B CID2 #### [facility] [address] [place] [address] Dr. Abril Richmond NDM Resistant Gene Not Applicable Normal NOT DETECTED [facility] Comment on above: Performed By: #### B CID2 #### [facility] [address] [place] [address] Dr. Abril Richmond Oxa-48-like Not Applicable Normal NOT DETECTED [facility] Comment on above: Performed By: #### B CID2 #### [facility] [address] [place] [address] Dr. Abril Richmond Proteus Not detected Normal NOT DETECTED [facility] Comment on above: Performed By: #### B CID2 #### [facility] [address] [place] [address] Dr. Abril Richmond Pseud. aeruginosa Not detected Normal NOT DETECTED [facility] Comment on above: Performed By: #### B CID2 #### [facility] [address] [place] [address] Dr. Abril Richmond S. maltophilia Not detected Normal NOT DETECTED [facility] Comment on above: Performed By: #### B CID2 #### [facility] [address] [place] [address] Dr. Abril Richmond Salmonella Not detected Normal NOT DETECTED [facility] Comment on above: Performed By: #### B CID2 #### [facility] [address] [place] [address] Dr. Abril Richmond Seratia marcescens Not detected Normal NOT DETECTED [facility] Comment on above: Performed By: #### B CID2 #### [facility] [address] [place] [address] Dr. Abril Richmond Site: R AC Normal [facility] Comment on above: Performed By: #### B CID2 #### [facility] [address] [place] [address] Dr. Abril Richmond Staph. aureus Not detected Normal NOT DETECTED [facility] Comment on above: Performed By: #### B CID2 #### [facility] [address] [place] [address] Dr. Abril Richmond Staph. epidermidis Detected Critically abnormal NOT DETECTED [facility] Comment on above: Performed By: #### B CID2 #### [facility] [address] [place] [address] Dr. Abril Richmond Staph. lugdunensis Not detected Normal NOT DETECTED [facility] Comment on above: Performed By: #### B CID2 #### [facility] [address] [place] [address] Dr. Abril Richmond Staphylococcus Detected Critically abnormal NOT DETECTED [facility] Comment on above: Performed By: #### B CID2 #### [facility] [address] [place] [address] Dr. Abril Richmond Strep. agalactiae Not detected Normal NOT DETECTED [facility] Comment on above: Performed By: #### B CID2 #### [facility] [address] [place] [address] Dr. Abril Richmond Strep. pneumoniae Not detected Normal NOT DETECTED [facility] Comment on above: Performed By: #### B CID2 #### [facility] [address] [place] [address] Dr. Abril Richmond Strep. pyogenes Not detected Normal NOT DETECTED [facility] Comment on above: Performed By: #### B CID2 #### [facility] [address] [place] [address] Dr. Abril Richmond Streptococcus Not detected Normal NOT DETECTED [facility] Comment on above: Performed By: #### B CID2 #### [facility] [address] [place] [address] Dr. Abril Richmond John/Audra Resist. Gene Not detected Normal NOT DETECTED [facility] Comment on above: Performed By: #### B CID2 #### [facility] [address] [place] [address] Dr. Abril Richmond VIM Resistant Gene Not Applicable Normal NOT DETECTED [facility] Comment on above: Performed By: #### B CID2 #### [facility] [address] [place] [address] Dr. Abril Richmond BNPon 10-10-2022 Natriuretic peptide B (Bld) [Mass/Vol] 194.0 pg/mL Normal <=900.0 [facility] Comment on above: Performed By: #### C MP, HSTROPN, BNP #### [facility] [address] [address] [address] Abril Richmond CBC AUTO DIFFon 10-10-2022 BASO # 0.0 103/ul Normal 0.0-0.1 [facility] Comment on above: Performed By: #### C BC #### [facility] [address] [address] [address] Abril Richmond Basophils/100 WBC (Bld) 0.2 % Normal 0.2-2.0 [facility] Comment on above: Performed By: #### C BC #### [facility] [address] [address] [address] Abril Richmond EO # 0.1 103/ul Normal 0.0-0.7 [facility] Comment on above: Performed By: #### C BC #### [facility] [address] [place] [address] Dr. Abril Richmond Eosinophils/100 WBC (Bld) 1.6 % Normal 0.9-7.0 [facility] Comment on above: Performed By: #### C BC #### [facility] [address] [place] [address] Dr. Abril Richmond Erythrocyte distribution width (RBC) [Ratio] 12.5 % Normal 11.0-15.0 [facility] Comment on above: Performed By: #### C BC #### [facility] [address] [place] [address] Dr. Abril Richmond Hematocrit (Bld) [Volume fraction] 39.2 % Normal 36.0-48.0 [facility] Comment on above: Performed By: #### C BC #### [facility] [address] [place] [address] Dr. Abril Richmond Hemoglobin (Bld) [Mass/Vol] 13.0 g/dL Normal 12.0-16.0 [facility] Comment on above: Performed By: #### C BC #### [facility] [address] [place] [address] Dr. Abril Richmond IG # 0.15 10e3/ul Critically high 0.00-0.03 [facility] Comment on above: Performed By: #### C BC #### [facility] [address] [place] [address] Dr. Abril Richmond IG % 1.8 % Critically high 0.0-0.5 [facility] Comment on above: Performed By: #### C BC #### [facility] [address] [place] [address] Dr. Abril Richmond LYMPH # 1.0 103/ul Critically low 1.2-3.8 [facility] Comment on above: Performed By: #### C BC #### [facility] [address] [place] [address] Dr. Abril Richmond Lymphocytes/100 WBC (Bld) 11.7 % Critically low 20.5-60.0 [facility] Comment on above: Performed By: #### C BC #### [facility] [address] [place] [address] Dr. Abril Richmond MANUAL DIFF REQ NO Normal [facility] Comment on above: Performed By: #### C BC #### [facility] [address] [place] [address] Dr. Abril Richmond MCH (RBC) [Entitic mass] 29.8 pg Normal 26.7-34.0 [facility] Comment on above: Performed By: #### C BC #### [facility] [address] [place] [address] Dr. Abril Richmond MCHC (RBC) [Mass/Vol] 33.2 g/dL Normal 29.9-35.2 [facility] Comment on above: Performed By: #### C BC #### [facility] [address] [place] [address] Dr. Abril Richmond MCV (RBC) [Entitic vol] 89.9 fL Normal 81.0-99.0 [facility] Comment on above: Performed By: #### C BC #### [facility] [address] [place] [address] Dr. Abril Richmond MONO # 0.6 103/ul Normal 0.3-0.8 [facility] Comment on above: Performed By: #### C BC #### [facility] [id number] Abril Richmond Monocytes/100 WBC (Bld) 7.0 % Normal 1.7-12.0 [facility] Comment on above: Performed By: #### C BC #### [facility] [address] [place] [address] Dr. Abril Richmond NEUT # 6.5 103/ul Normal 1.4-6.5 [facility] Comment on above: Performed By: #### C BC #### [facility] [address] [place] [address] Dr. Abril Richmond Neutrophils/100 WBC (Bld) 77.7 % Critically high 43.0-75.0 [facility] Comment on above: Performed By: #### C BC #### [facility] [address] [place] [address] Dr. Abril Richmond Platelet mean volume (Bld) [Entitic vol] 8.6 fL Critically low 9.5-13.5 [facility] Comment on above: Performed By: #### C BC #### [facility] [address] [place] [address] Dr. Abril Richmond PLT 321 103/ul Normal 150-450 [facility] Comment on above: Performed By: #### C BC #### [facility] [address] [place] [address] Dr. Abril Richmond RBC 4.36 106/ul Normal 4.20-5.40 [facility] Comment on above: Performed By: #### C BC #### [facility] [address] [place] [address] Dr. Abril Richmond WBC 8.4 103/ul Normal 4.0-11.0 [facility] Comment on above: Performed By: #### C BC #### [facility] [address] [place], [place] [id number] Dr. Abril Richmond CTA CHEST WO W [...] PEGGY CALVIN Date: 2022-10-10 05:03 Normal [facility] CULTURE BLOODon 10-10-2022 Microscopic examination of blood, culture Culture Observations: NO GROWTH AT 5 DAYS. Normal [facility] Comment on above: Performed By: #### B MP #### [facility] [address] [place] [address] Dr. Abril Richmond D-DIMERon 10-10-2022 D-DIMER 0.78 mg/L FEU Critically high <=0.59 [facility] Comment on above: Performed By: #### B MP #### [facility] [address] [place] [address] Dr. Abril Richmond D-DIMER COMMENTS SEE BELOW Normal [facility] Comment on above: Result Comment: Incr eases [...] hospitalization. Performed By: #### B MP #### [facility] [address] [place] [address] Dr. Abril Richmond LACTATE/LACTIC ACIDon 2022 Lactate [Moles/Vol] 0.8 mmol/L Normal 0.4-2.0 [facility] Comment on above: Performed By: #### L ACT #### [facility] [address] [place] [address] Dr. Abril Richmond PROF 14(COMP METB)on 023 Albumin [Mass/Vol] 3.4 g/dL Normal 3.4-5.0 [facility] Comment on above: Performed By: #### C MP, HSTROPN, BNP #### [facility] [address] [place] [address] Dr. Abril Richmond Albumin/Globulin [Mass ratio] 0.9 {ratio} Normal [facility] Comment on above: Performed By: #### C MP, HSTROPN, BNP #### [facility] [address] [address] [address] Abril Richmond ALP [Catalytic activity/Vol] 73 U/L Normal 46-116 [facility] Comment on above: Performed By: #### C MP, HSTROPN, BNP #### [facility] [address] [address] [address] Abril Richmond ALT [Catalytic activity/Vol] 29 U/L Normal 14-59 [facility] Comment on above: Performed By: #### C MP, HSTROPN, BNP #### [facility] [address] [address] [address] Abril Richmond Anion gap [Moles/Vol] 11.4 mmol/L Normal [facility] Comment on above: Performed By: #### C MP, HSTROPN, BNP #### [facility] [address] [place] [address] Dr. Abril Richmond AST [Catalytic activity/Vol] 22 U/L Normal 15-37 [facility] Comment on above: Performed By: #### C MP, HSTROPN, BNP #### [facility] [address] [place] [address] Dr. Abril Richmond Bilirubin [Mass/Vol] 0.3 mg/dL Normal 0.2-1.0 [facility] Comment on above: Performed By: #### C MP, HSTROPN, BNP #### [facility] [address] [address] [address] Abril Richmond Calcium [Mass/Vol] 8.4 mg/dL Critically low 8.5-10.1 [facility] Comment on above: Performed By: #### C MP, HSTROPN, BNP #### [facility] [address] [address] [address] Abril Richmond Chloride [Moles/Vol] 104 mmol/L Normal 98-107 [facility] Comment on above: Performed By: #### C MP, HSTROPN, BNP #### [facility] [address] [address] [address] Abril Richmond CO2 [Moles/Vol] 28.0 mmol/L Normal 21.0-32.0 [facility] Comment on above: Performed By: #### C MP, HSTROPN, BNP #### [facility] [address] [place] [address] Dr. Abril Richmond Creatinine [Mass/Vol] 0.96 mg/dL Normal 0.55-1.02 [facility] Comment on above: Performed By: #### C MP, HSTROPN, BNP #### [facility] [address] [place] [address] Dr. Abril Richmond EGFR-AF DJIBOUTIAN >60 Normal >=60 [facility] Comment on above: Performed By: #### C MP, HSTROPN, BNP #### [facility] [address] [place] [address] Dr. Abril Richmond EGFR-NON AF DJIBOUTIAN >60 Normal >=60 [facility] Comment on above: Performed By: #### C MP, HSTROPN, BNP #### [facility] [address] [place] [address] Dr. Abril Richmond Globulin (S) [Mass/Vol] 3.8 g/dL Normal [facility] Comment on above: Performed By: #### C MP, HSTROPN, BNP #### [facility] [address] [place] [address] Dr. Abril Richmond Glucose [Mass/Vol] 115 mg/dL Critically high 74-106 [facility] Comment on above: Performed By: #### C MP, HSTROPN, BNP #### [facility] [address] [place] [address] Dr. Abril Richmond Potassium [Moles/Vol] 3.4 mmol/L Critically low 3.5-5.1 [facility] Comment on above: Performed By: #### C MP, HSTROPN, BNP #### [facility] [address] [place] [address] Dr. Abril Richmond Protein [Mass/Vol] 7.2 g/dL Normal 6.4-8.2 [facility] Comment on above: Performed By: #### C MP, HSTROPN, BNP #### [facility] [address] [place] [address] Dr. Abril Richmond Sodium [Moles/Vol] 140 mmol/L Normal 136-145 [facility] Comment on above: Performed By: #### C MP, HSTROPN, BNP #### [facility] [address] [place] [address] Dr. Abril Richmond Urea nitrogen [Mass/Vol] 14.0 mg/dL Normal 7.0-18.0 [facility] Comment on above: Performed By: #### C MP, HSTROPN, BNP #### [facility] [address] [place] [address] Dr. Abril Richmond Urea nitrogen/Creatinine [Mass ratio] 14.6 mg/mg Normal [facility] Comment on above: Performed By: #### C MP, HSTROPN, BNP #### [facility] [address] [place] [address] Dr. Abril Richmond RESPIRATORY PANEL PLUSon Adenovirus Not detected Normal NOT DETECTED [facility] Comment on above: Performed By: #### F T4 #### [facility] [address] [place] [address] Dr. Abril Zhu. Parapertusis Not detected Normal NOT DETECTED [facility] Comment on above: Performed By: #### F T4 #### [facility] [address] [place] [address] Dr. Abril Frye Pertussis Not detected Normal NOT DETECTED [facility] Comment on above: Performed By: #### F T4 #### [facility] [address] [place] [address] Dr. Abril Richmond Chlamydia Pneumoniae Not detected Normal NOT DETECTED [facility] Comment on above: Performed By: #### F T4 #### [facility] [address] [place] [address] Dr. Abril Richmond Coronavirus 229E Not detected Normal NOT DETECTED [facility] Comment on above: Performed By: #### F T4 #### [facility] [address] [place] [address] Dr. Abril Richmond Coronavirus HKU1 Not detected Normal NOT DETECTED [facility] Comment on above: Performed By: #### F T4 #### [facility] [address] [place] [address] Dr. Abril Richmond Coronavirus NL63 Not detected Normal NOT DETECTED [facility] Comment on above: Performed By: #### F T4 #### [facility] [address] [place] [address] Dr. Abril Richmond Coronavirus OC43 Not detected Normal NOT DETECTED [facility] Comment on above: Performed By: #### F T4 #### [facility] [address] [address] [address] Abril Richmond Influenza A H1 Not detected Normal NOT DETECTED [facility] Comment on above: Performed By: #### F T4 #### [facility] [address] [place] [address] Dr. Abril Richmond Influenza A H1 2009 Not detected Normal NOT DETECTED [facility] Comment on above: Performed By: #### F T4 #### [facility] [address] [place] [address] Dr. Abril Richmond Influenza A H3 Not detected Normal NOT DETECTED [facility] Comment on above: Performed By: #### F T4 #### [facility] [address] [place] [address] Dr. Abril Richmond Influenza B Not detected Normal NOT DETECTED [facility] Comment on above: Performed By: #### F T4 #### [facility] [address] [place] [address] Dr. Abril Richmond Metapneumovirus Not detected Normal NOT DETECTED [facility] Comment on above: Performed By: #### F T4 #### [facility] [address] [address] [address] Abril Richmond Mycoplas. Pneumoniae Not detected Normal NOT DETECTED [facility] Comment on above: Performed By: #### F T4 #### [facility] [address] [place] [address] Dr. Abril Richmond Parainfluenza 1 Not detected Normal NOT DETECTED [facility] Comment on above: Performed By: #### F T4 #### [facility] [address] [place] [address] Dr. Abril Richmond Parainfluenza 2 Not detected Normal NOT DETECTED [facility] Comment on above: Performed By: #### F T4 #### [facility] [address] [place] [address] Dr. Abril Richmond Parainfluenza 3 Detected Abnormal NOT DETECTED [facility] Comment on above: Performed By: #### F T4 #### [facility] [address] [place] [address] Dr. Abril Richmond Parainfluenza 4 Not detected Normal NOT DETECTED [facility] Comment on above: Performed By: #### F T4 #### [facility] [address] [place] [address] Dr. Abril Richmond Rhino/Enterovirus Not detected Normal NOT DETECTED [facility] Comment on above: Performed By: #### F T4 #### [facility] [address] [place] [address] Dr. Abril Richmond RP2 Header 1 RESPIRATORY PANEL: VIRUSES Normal [facility] Comment on above: Performed By: #### F T4 #### [facility] [address] [place] [address] Dr. Abril Richmond RP2 Header 2 RESPIRATORY PANEL: BACTERIA Normal [facility] Comment on above: Performed By: #### F T4 #### [facility] [address] [place] [address] Dr. Abril Richmond RSV Not detected Normal NOT DETECTED [facility] Comment on above: Performed By: #### F T4 #### [facility] [address] [place] [address] Dr. Abril Richmond SARS-CoV-2 (COVID-19) RNA JORDI+probe Ql (Unsp spec) Not detected Normal NOT DETECTED [facility] Comment on above: Performed By: #### F T4 #### [facility] [address] [place] [address] Dr. Abril Richmond TROPONIN, HIGH SENSITIVITYon 10-10-2022 HSTROP 5.3 pg/mL Normal 4.0-51.3 [facility] Comment on above: Result Comment: CUT- OFF POINTS HAVE BEEN ESTABLISHED BASED ON THE FOURTH UNIVERSAL DEFINITIONS OF MYOCARDIAL INFARCTION. THE UPPER REFERENCE LIMIT (URL) OF TROPONIN, DEFINED THE 99TH PERCENTILE OF cTnI DISTRIBUTION IN A REFERENCE POPULATION, HAS BEEN CONFIRMED THE DECISION THRESHOLD FOR [place] DIAGNOSIS. Performed By: #### C MP, HSTROPN, BNP #### [facility] [address] [address] [address] Abril Richmond ECHOCARDIO M/2D COMPLETEon 1 06-10-2021 ECHOCARDIO M/2D COMPLETE Patient: RAYSA TEJADA Exam Date: 04/10/2022 : 1970 Gender:F Ordering : DR MICHELLE PATTERSON . Admission #: [id number] Family : Order #: [id number] CLICK HERE TO VIEW EXAM ECHOCARDIOGRAM REPORT [...] M.D. on 04/11/2022 at 18:48 Normal [facility] CBC AUTO DIFFon 03-09-2022 BASO # 0.0 103/ul Normal 0.0-0.1 [facility] Comment on above: Performed By: #### B MP #### [facility] [address] [place] [address] Dr. Abril Richmond Basophils/100 WBC (Bld) 0.5 % Normal 0.2-2.0 [facility] Comment on above: Performed By: #### B MP #### [facility] [address] [place] [address] Dr. Abril Richmond EO # 0.2 103/ul Normal 0.0-0.7 [facility] Comment on above: Performed By: #### B MP #### [facility] [address] [place] [address] Dr. Abril Richmond Eosinophils/100 WBC (Bld) 2.0 % Normal 0.9-7.0 [facility] Comment on above: Performed By: #### B MP #### [facility] [address] [place] [address] Dr. Abril Richmond Erythrocyte distribution width (RBC) [Ratio] 12.7 % Normal 11.0-15.0 [facility] Comment on above: Performed By: #### B MP #### [facility] [address] [place] [address] Dr. Abril Richmond Hematocrit (Bld) [Volume fraction] 39.8 % Normal 36.0-48.0 [facility] Comment on above: Performed By: #### B MP #### [facility] [address] [place] [address] Dr. Abril Richmond Hemoglobin (Bld) [Mass/Vol] 13.0 g/dL Normal 12.0-16.0 [facility] Comment on above: Performed By: #### B MP #### [facility] [address] [place] [address] Dr. Abril Richmond IG # 0.03 10e3/ul Normal 0.00-0.03 [facility] Comment on above: Performed By: #### B MP #### [facility] [address] [place] [address] Dr. Abril Richmond IG % 0.4 % Normal 0.0-0.5 [facility] Comment on above: Performed By: #### B MP #### [facility] [address] [place] [address] Dr. Abril Richmond LYMPH # 1.9 103/ul Normal 1.2-3.8 [facility] Comment on above: Performed By: #### B MP #### [facility] [address] [place] [address] Dr. Abril Richmond Lymphocytes/100 WBC (Bld) 24.1 % Normal 20.5-60.0 [facility] Comment on above: Performed By: #### B MP #### [facility] [address] [place] [address] Dr. Abril Richmond MANUAL DIFF REQ NO Normal [facility] Comment on above: Performed By: #### B MP #### [facility] [address] [place] [address] Dr. Abril Richmond MCH (RBC) [Entitic mass] 30.0 pg Normal 26.7-34.0 [facility] Comment on above: Performed By: #### B MP #### [facility] [address] [place] [address] Dr. Abril Richmond MCHC (RBC) [Mass/Vol] 32.7 g/dL Normal 29.9-35.2 [facility] Comment on above: Performed By: #### B MP #### [facility] [address] [place] [address] Dr. Abril Richmond MCV (RBC) [Entitic vol] 91.7 fL Normal 81.0-99.0 [facility] Comment on above: Performed By: #### B MP #### [facility] [address] [place] [address] Dr. Abril Richmond MONO # 0.6 103/ul Normal 0.3-0.8 [facility] Comment on above: Performed By: #### B MP #### [facility] [address] [place] [address] Dr. Abril Richmond Monocytes/100 WBC (Bld) 7.3 % Normal 1.7-12.0 [facility] Comment on above: Performed By: #### B MP #### [facility] [address] [place] [address] Dr. Abril Richmond NEUT # 5.2 103/ul Normal 1.4-6.5 [facility] Comment on above: Performed By: #### B MP #### [facility] [address] [place] [address] Dr. Abril Richmond Neutrophils/100 WBC (Bld) 65.7 % Normal 43.0-75.0 [facility] Comment on above: Performed By: #### B MP #### [facility] [address] [place] [address] Dr. Abril Richmond Platelet mean volume (Bld) [Entitic vol] 8.9 fL Critically low 9.5-13.5 [facility] Comment on above: Performed By: #### B MP #### [facility] [address] [place] [address] Dr. Abril Richmond PLT 408 103/ul Normal 150-450 [facility] Comment on above: Performed By: #### B MP #### [facility] [address] [place] [address] Dr. Abril Richmond RBC 4.34 106/ul Normal 4.20-5.40 [facility] Comment on above: Performed By: #### B MP #### [facility] [address] [place] [address] Dr. Abril Richmond WBC 8.0 103/ul Normal 4.0-11.0 [facility] Comment on above: Performed By: #### B MP #### [facility] [address] [place] [address] Dr. Abril Richmond FREE T3on 03-09-2022 FREE T3 2.58 pg/mlL Normal 2.18-3.98 [facility] Comment on above: Performed By: #### T SH, FT3, BMP #### [facility] [address] [place] [address] Dr. Abril Richmond FREE T4on 03-09-2022 Free T4 [Mass/Vol] 1.04 ng/dL Normal 0.76-1.46 [facility] Comment on above: Performed By: #### F T4 #### [facility] [address] [address] [address] Abril Richmond PROF CHEM 8 (BAS METB)on Anion gap [Moles/Vol] 8.2 mmol/L Normal [facility] Comment on above: Performed By: #### B MP #### [facility] [address] [place] [address] Dr. Abril Richmond Calcium [Mass/Vol] 8.7 mg/dL Normal 8.5-10.1 [facility] Comment on above: Performed By: #### B MP #### [facility] [address] [place] [address] Dr. Abril Richmond Chloride [Moles/Vol] 105 mmol/L Normal 98-107 [facility] Comment on above: Performed By: #### B MP #### [facility] [address] [place] [address] Dr. Abril Richmond CO2 [Moles/Vol] 27.0 mmol/L Normal 21.0-32.0 [facility] Comment on above: Performed By: #### B MP #### [facility] [address] [place] [address] Dr. Abril Richmond Creatinine [Mass/Vol] 0.81 mg/dL Normal 0.55-1.02 [facility] Comment on above: Performed By: #### B MP #### [facility] [address] [place] [address] Dr. Abril Richmond EGFR-AF DJIBOUTIAN >60 Normal >=60 [facility] Comment on above: Performed By: #### B MP #### [facility] [address] [address] [address] Abril Richmond EGFR-NON AF DJIBOUTIAN >60 Normal >=60 [facility] Comment on above: Performed By: #### B MP #### [facility] [address] [place] [address] Dr. Abril Richmond Glucose [Mass/Vol] 79 mg/dL Normal 74-106 [facility] Comment on above: Performed By: #### B MP #### [facility] [address] [address] [address] Abril Richmond Potassium [Moles/Vol] 4.2 mmol/L Normal 3.5-5.1 [facility] Comment on above: Performed By: #### B MP #### [facility] [address] [place], [place] [address] Dr. Abril Richmond Sodium [Moles/Vol] 136 mmol/L Normal 136-145 [facility] Comment on above: Performed By: #### B MP #### [facility] [address] [address] [address] Abril Richmond Urea nitrogen [Mass/Vol] 17.0 mg/dL Normal 7.0-18.0 [facility] Comment on above: Performed By: #### B MP #### [facility] [address] [address] [address] Abril Richmond Urea nitrogen/Creatinine [Mass ratio] 21.0 mg/mg Normal [facility] Comment on above: Performed By: #### B MP #### [facility] [address] [address] [address] Abril Richmond TSHon 03-09-2022 TSH 1.342 uIU/mL Normal 0.358-3.740 [facility] Comment on above: Performed By: #### B MP #### [facility] [address] [address] [address] Abril Richmond Vital Signs Date Time Vital Sign Value Performing Clinician Facility 05-15-2023 17:10-0500 Body height 167.64 cm Marycarmen Jean Other [facility] [employer] Other 05-15-2023 17:10-0500 Body mass index (BMI) [Ratio] 30.92 kg/m2 Marycarmen Jean Other [facility] Other 05-15-2023 17:10-0500 Body temperature 97.6 [degF] Marycarmen Jean Other [facility] Other 05-15-2023 17:10-0500 Body weight 86.91 kg Marycarmen Miranda Other [facility] Other 05-15-2023 17:10-0500 Respiratory rate 18 /min Marycarmen Miranda Other [facility] Other 05-15-2023 17:10-0500 SaO2% (BldA) [Mass fraction] 89 % Marycarmen Miranda Other [facility] Other 03-05-2023 13:00-0400 Body height 167.64 cm Shannon Husseinmond Other [facility] Other 03-05-2023 13:00-0400 Body mass index (BMI) [Ratio] 31.47 kg/m2 Shannon Anabela Other [facility] Other 03-05-2023 13:00-0400 Body temperature 98 [degF] Shannon Anabela Other [facility] Other 03-05-2023 13:00-0400 Body weight 88.45 kg Shannon Anabela Other [facility] Other 03-05-2023 13:00-0400 Diastolic blood pressure 79 mm[Hg] Shannon Anabela Other [facility] Other 03-05-2023 13:00-0400 Respiratory rate 18 /min Shannon Anabela Other [facility] Other 03-05-2023 13:00-0400 SaO2% (BldA) [Mass fraction] 95 % Shannon Anabela Other [facility] Other 03-05-2023 13:00-0400 Systolic blood pressure 127 mm[Hg] Shannon Peñaloza Other [facility] Other Encounters Encounter Date Encounter Type Care Provider Facility Start: 12-17-2023 End: 12-17-2023 ambulatory CHICO JERONIMO Not Available Start: 11-20-2023 End: 11-20-2023 ambulatory MICHELLE PATTERSON Not Available Start: 09-26-2023 End: 09-26-2023 ambulatory SHAIKH MICHAEL Not Available Start: 08-20-2023 End: 08-20-2023 ambulatory [facility] Start: 06-01-2023 ambulatory [facility] Start: 05-15-2023 End: 05-15-2023 ambulatory Marycarmen Jean Other [facility] Other Start: 05-15-2023 Patient encounter procedure Marycarmen Jean [facility] Start: 03-05-2023 End: 03-05-2023 ambulatory Shannon Peñaloza Other [facility] Other Start: 03-05-2023 Office outpatient visit 15 minutes Shannon Peñaloza [facility] Start: 02-27-2023 End: 02-27-2023 ambulatory [facility] Start: 10-11-2022 End: 10-12-2022 Evaluation and management of inpatient DR MICHELLE PATTERSON Facility:[facility] Start: 04-10-2022 End: 04-11-[address] MICHELLE PATTERSON Facility:[facility] Start: 03-09-2022 End: 03-10-[address] MICHELLE PATTERSON Facility:[facility] Procedures Date Procedure Procedure Detail Performing Clinician Start: 08-20-2023 [facility] Payers Date Payer Category Payer Unknown [id number] 2.16.84 [id number] 1972 Unknown [id number] 2.16.84 [id number] 1972 Unknown [id number] 2.16.84 [id number] 1972 Unknown [id number] 2.16.84 [id number] 1972 Unknown [id number] 2.16.84 [id number] 1972 Unknown [id number] 2.16.84 [id number] 1959 Private Health Insurance [id number] 1957 Unknown [id number] Social History Date Type Detail Facility Unknown if ever smoked [facility] Other Sex Assigned At Sex Assigned At Bir th [facility] Other Progress note 08-20-2023 Note Date & Type Note Facility 08-20-2023 Note Cardiology Clinic No te Chief Complaint: shortness of breath HPI: Raysa Tejada is a 52 y.o. female with no significant past medical history who was referred to cardiology for further evaluation/management of shortness of breath. Patient had a lung infection several months ago and has had breathing difficulty since that time. She presents today for follow up appointment. Previous cardiac testing: Treadmill stress test with nuclear perfusion scan was completed. No reversible ischemia was noted. Treadmill stress test was negative. Echo was without significant abnormality. EF was within normal limits. No significant valvular abnormality. Today, patient states that she is doing well. Patient adamantly denies any cardiac complaints or concerns. Patient denies any chest pain. Patient denies any lower extremity edema, orthopnea, or proximal nocturnal dyspnea. No near-syncope or syncope. No dizziness or lightheadedness. Shortness of breath has significantly improved as per patient. Cardiology ROS: GENERAL: Denies fever, chills, night sweats, weight loss. HEENT: Denies changes in vision, photophobia, changes in hearing, epistaxis, oral bleeding. CARDIOVASCULAR: Denies chest pain, exertional dyspnea, orthopnea/PND, lower extremity edema, palpitations, lightheadedness/dizziness. RESPIRATORY: Denies SOB, coughing, wheezing GI: Denies abdominal pain, nausea/vomiting, heartburn, melena/hematochezia. RENAL: Denies dysuria, hematuria, flank pain. MSK: Denies muscle weakness/pain, arthralgias/joint pain. NEUROLOGIC: Denies LOC, weakness, numbness, headaches. SKIN: Denies abnormal rashes or bleeding. PSYCH: Denies significant anxiety, depression, sleep disturbances. Family History Family History Problem Relation Name Age of Onset Other (smoker) Mother Coronary artery disease Mother Medications Current Outpatient Medications on File Prior to Visit Medication Sig Dispense Refill fluticasone propion-salmeteroL (Advair HFA) 115-21 mcg/actuation inhaler every 12 (twelve) hours. No current facility-administered medications on file prior to visit. Allergies Patient has no known allergies. Physical Exam General: alert, cooperative Respiratory: able to speak in full sentences without cough or SOB Neuro: A&O x 3, responded to questions appropriately, normal speech, memory intact Psych: Normal mood, normal affect Impression: -Dyspnea/dyspnea on exertion -Atypical chest pain, resolved Plan: -Dyspnea is likely multifactorial, possibly in part due to history of lung infection and/or deconditioning. No evidence of ischemia on stress test -Echo without evidence of heart failure, valvular dysfunction, or RWMA. Symptoms have improved significantly -Encouraged continued follow up with Pulm. -Optimize medical management -Aggressive risk factor modification -Plan of care discussed with patient. All questions were answered. Patient voices understanding and is agreeable with current plan. -Patient was educated on red flag symptoms. Strict return precautions were provided. Patient verbalizes understanding -Follow-up in cardiology clinic in 6 months, or sooner as needed. Alecia Cohen MD Interventional Cardiology [facility] Progress note 06-01-2023 Note Date & Type Note Facility 06-01-2023 Note Cardiology Clinic No te Chief Complaint: shortness of breath HPI: Raysa Tejada is a 52 y.o. female with no significant past medical history who was referred to cardiology for further evaluation/management of shortness of breath. Patient had a lung infection several months ago and has had breathing difficulty since that time. She presents today for telemedicine follow up appointment. The patient was notified that using 3rd libertarian telecommunication application (e.g., [employer]) is not HIPPA compliant and may carry some privacy risks. Yes The visit was conducted with the use of audio technology/phone between patient and provider for a virtual visit. Verbal consent to provide and bill this service was obtained on 06/01/2023 . No signature was obtained due to the COVID-19 pandemic. Overall, patient states that she is doing well. She states that her symptoms have improved. Shortness of breath has improved. She has rare atypical chest pain. No anginal chest pain. Testing was ordered during last appointment and was completed. Treadmill stress test with nuclear perfusion scan was completed. No reversible ischemia was noted. Treadmill stress test was negative. Echo was without significant abnormality. EF was within normal limits. No significant valvular abnormality. Cardiology ROS: GENERAL: Denies fever, chills, night sweats, weight loss. HEENT: Denies changes in vision, photophobia, changes in hearing, epistaxis, oral bleeding. CARDIOVASCULAR: Denies chest pain, exertional dyspnea, orthopnea/PND, lower extremity edema, palpitations, lightheadedness/dizziness. RESPIRATORY: Denies SOB, coughing, wheezing GI: Denies abdominal pain, nausea/vomiting, heartburn, melena/hematochezia. RENAL: Denies dysuria, hematuria, flank pain. MSK: Denies muscle weakness/pain, arthralgias/joint pain. NEUROLOGIC: Denies LOC, weakness, numbness, headaches. SKIN: Denies abnormal rashes or bleeding. PSYCH: Denies significant anxiety, depression, sleep disturbances. Family History Family History Problem Relation Name Age of Onset Other (smoker) Mother Coronary artery disease Mother Medications Current Outpatient Medications on File Prior to Visit Medication Sig Dispense Refill fluticasone propion-salmeteroL (Advair HFA) 115-21 mcg/actuation inhaler every 12 (twelve) hours. No current facility-administered medications on file prior to visit. Allergies Patient has no known allergies. Physical Exam General: alert, cooperative Respiratory: able to speak in full sentences without cough or SOB Neuro: A&O x 3, responded to questions appropriately, normal speech, memory intact Psych: Normal mood, normal affect Impression: -Dyspnea/dyspnea on exertion -Atypical chest pain Plan: -Dyspnea/dyspnea on exertion is likely multifactorial, possibly in part due to history of lung infection and/or deconditioning. No evidence of ischemia on stress test -Echo without evidence of heart failure, valvular dysfunction LVEF, regional wall motion, valvular function -We will obtain treadmill stress test with nuclear myocardial perfusion imaging -Optimize medical management -Aggressive risk factor modification -Plan of care discussed with patient. All questions were answered. Patient voices understanding and is agreeable with current plan. -Patient was educated on red flag symptoms. Strict return precautions were provided. Patient verbalizes understanding -Follow-up in cardiology clinic in 3 months, or sooner as needed. Alecia Cohen MD Interventional Cardiology [facility] Progress note 06-01-2023 Note Date & Type Note Facility 06-01-2023 Note Telephone visit for follow up stress test and echo done at [facility] a few weeks ago. Dr. Nesbitt recently prescribed her Advair inhaler and had her on prednisone for a bit for SOB. Says she feels much better. Still has some chest pressure. [facility] Evaluation note 05-15-2023 Note Date & Type Note Facility 05-15-2023 Evaluation note Encounter Date Diagnosis Assessment Notes Apr, Other Has been unable to keep fluid or food down > 24 hours. Low O2 sat. Referred to ER. [facility] Other Evaluation note 03-05-2023 Note Date & Type Note Facility 03-05-2023 Evaluation note Encounter Date Diagnosis Assessment Notes Feb, Bronchitis (ICD-10 - J40) Drink plenty fluids, get plenty of rest. Take the azithromycin as prescribed until gone. Continue home medications as prescribed. Contact your herbarium curator and notify him of your symptoms and the treatment with azithromycin. Follow-up as instructed. Follow-up with your cardiology testing as scheduled. Go to the ER for worsening symptoms or concerns. [facility] Other Progress note 02-27-2023 Note Date & Type Note Facility 02-27-2023 Note Cardiology Clinic No te Chief Complaint: shortness of breath HPI: Raysa Tejada is a 52 y.o. female with no significant past medical history who was referred to cardiology for further evaluation/management of shortness of breath. Patient had a lung infection several months ago. Since that time, she has noted significant dyspnea and dyspnea on exertion. Comes on with the shortness of breath. This can happen both at rest and with exertion. She denies any additional cardiac complaints or concerns. She denies any lower extreme edema, orthopnea, paroxysmal nocturnal dyspnea. No near-syncope or syncope. Patient denies any previous cardiac history. hopnea, PND, palps, or bleeding. Patient denies any previous history of CVA, PVD, DM, HTN, Depressed LVEF, and CAD. Cardiology ROS: GENERAL: Denies fever, chills, night sweats, weight loss. HEENT: Denies changes in vision, photophobia, changes in hearing, epistaxis, oral bleeding. CARDIOVASCULAR: Denies chest pain, exertional dyspnea, orthopnea/PND, lower extremity edema, palpitations, lightheadedness/dizziness. RESPIRATORY: Denies SOB, coughing, wheezing GI: Denies abdominal pain, nausea/vomiting, heartburn, melena/hematochezia. RENAL: Denies dysuria, hematuria, flank pain. MSK: Denies muscle weakness/pain, arthralgias/joint pain. NEUROLOGIC: Denies LOC, weakness, numbness, headaches. SKIN: Denies abnormal rashes or bleeding. PSYCH: Denies significant anxiety, depression, sleep disturbances. Past Medical History She has no past medical history on file. Surgical History She has a past surgical history that includes [place] tooth extraction. Social History She reports that she has never smoked. She has never used smokeless tobacco. She reports that she does not drink alcohol. No history on file for drug use. Family History Family History Problem Relation Name Age of Onset Other (smoker) Mother Coronary artery disease Mother Medications No current outpatient medications on file prior to visit. No current facility-administered medications on file prior to visit. Allergies Patient has no known allergies. Physical Exam VITAL SIGNS: BP 135/80 (BP Location: Left arm, Patient Position: Sitting) Pulse 81 Ht 1.676 m (5' 6 ) Wt 88.5 kg (195 lb) SpO2 97% BMI 31.47 kg/m??? Constitutional: Well developed, Well nourished, No acute distress, Non-toxic appearance. HENT: Normocephalic, Atraumatic, Bilateral external ears have normal appearance, Nose appears normal, nares are patent. Eyes: PERRLA, EOMI, Conjunctiva normal, No discharge. Neck: Normal range of motion, No tenderness, Supple, No stridor. No cervical lymphadenopathy noted. Cardiovascular: Normal heart rate, Normal rhythm, No murmurs, No rubs, No gallops. Thorax & Lungs: Normal breath sounds, No respiratory distress, No wheezing, No chest tenderness to palpation. Abdomen: Bowel sounds normal, Soft, Nontender, No masses, No pulsatile masses. Skin: Warm, Dry, No erythema, No rash. Back: No tenderness, No CVA tenderness. Extremities: Intact distal pulses, No edema, No tenderness, No cyanosis, No clubbing. Musculoskeletal: Grossly normal strength in extremities Neurologic: Alert & oriented x 3, no gross focal neurological deficits Psychiatric: Affect normal, Judgment normal, Mood normal. Impression: -Dyspnea/dyspnea on exertion -Chest pressure Plan: -Dyspnea/dyspnea on exertion is likely multifactorial, possibly in part due to history of lung infection and/or deconditioning. However, prudent to rule out ischemia. -We will obtain EKG in office -We will obtain echocardiogram to assess LVEF, regional wall motion, valvular function -We will obtain treadmill stress test with nuclear myocardial perfusion imaging -Optimize medical management -Aggressive risk factor modification -Plan of care discussed with patient. All questions were answered. Patient voices understanding and is agreeable with current plan. -Patient was educated on red flag symptoms. Strict return precautions were provided. Patient verbalizes understanding -Follow-up in cardiology clinic in 6-8 weeks, or sooner as needed Thank you for allowing us to participate in the care of your patient. Please do not hesitate to contact cardiology with any questions or concerns. Alecia Cohen MD Interventional Cardiology [facility] Progress note 02-27-2023 Note Date & Type Note Facility 02-27-2023 Note New patient here to establish care. Ref from Dr. Nesbitt for SOB and chest pressure. She was admitted to [facility] in September 2022 for respiratory failure [...] All other systems reviewed and are negative. [facility] History general Narrative - Reported 09-18-2022 Note Date & Type Note Facility 09-18-2022 History general N arrative - Reported Type Surgical History wisdom teeth extract Hospitalization History parainfluenza with hypox ia 09/2022 [facility] Other Summary Purpose Family History No Family History Records FoundNo Family History Records FoundNo Family History Records Found Advance Directives No Advanced Directives Records FoundNo Advanced Directives Records FoundNo Advanced Directives Records Found Additional Source Comments INFORMATION SOURCE (unrecogn ized section and content) DATE CREATED AUTHOR 10/28/2022 [facility] DATE CREATED AUTHOR AUTHOR'S ORGANIZ ATION 10/24/2023 [facility] DATE CREATED AUTHOR AUTHOR'S ORGANIZ ATION 12/18/2023 [facility] EPIC REASON FOR VISIT (unrecogniz ed section and content) STARTED COLD, SETTLING IN CHEST, TIREDCHEST CONGESTION AND POSSIBLY THE FLU FOR RECORDS PERTAINING TO PATIENTS WHO ARE [...] BE BASED ON THE PRIMARY CLINICAL RECORDS. [employer] provides no warranty or guarantee of the accuracy or completeness of information in this document.
[2024-01-04 10:04] LABS: Basophils Percent Auto 0.5 % (0.2-2.0); Eosinophils Absolute Auto 0.1 10^3/uL (0.0-0.7); Eosinophils Percent Auto 2.2 % (0.9-7.0); Hematocrit 39.6 % (36.0-48.0); Hemoglobin 13.1 g/dL (12.0-16.0); Immature Granulocytes Abs Auto 0.02 10^3/uL (0.00-0.03); Immature Granulocytes Pct Auto 0.3 % (0.0-0.5); Lymphocytes Absolute Auto 1.5 10^3/uL (1.2-3.8); Lymphocytes Percent Auto 23.1 % (20.5-60.0); Mean Corpuscular HGB Conc 33.1 g/dL (29.9-35.2); Mean Corpuscular Hemoglobin 29.9 pg (26.7-34.0); Mean Corpuscular Volume 90.4 fL (81.0-99.0); Mean Platelet Volume 8.8 fL (9.5-13.5); Monocytes Absolute Auto 0.4 10^3/uL (0.3-0.8); Monocytes Percent Auto 6.3 % (1.7-12.0); Neutrophils Absolute Auto 4.4 10^3/uL (1.4-6.5); Neutrophils Percent Auto 67.6 % (43.0-75.0); Platelet Count 323 10^3/uL (150-450); Red Blood Count 4.38 10^6/uL (4.20-5.40); Red Cell Distribution Width 12.4 % (11.0-15.0); White Blood Count 6.5 10^3/uL (4.0-11.0)
[2024-01-04 10:24] LABS: Estimated Average Glucose 108 mg/dL; Glycohemoglobin A1C 5.4 % (4.5-6.2)
[2024-01-04 10:45] LABS: Alanine Aminotransferase 24 U/L (14-59); Albumin Level 3.6 g/dL (3.4-5.0); Alkaline Phosphatase 76 U/L (46-116); Anion Gap 12.8; Aspartate Amino Transferase 14 U/L (15-37); BUN Creatinine Ratio 19.8; Bilirubin Direct 0.1 mg/dL (0.0-0.2); Bilirubin Total 0.4 mg/dL (0.2-1.0); Calcium 8.6 mg/dL (8.5-10.1); Carbon Dioxide 25.3 mmol/L (21.0-32.0); Chloride 102 mmol/L (98-107); Chol HDL Ratio 2.6; Cholesterol 161 mg/dL (<=200); Estimated GFR (African America >60 (>=60); Estimated GFR (Non-African Ame >60 (>=60); Globulin 3.5 g/dL; Glucose 94 mg/dL (74-106); HDL Cholesterol 63 mg/dL (40-60); Potassium 4.1 mmol/L (3.5-5.1); Sodium 136 mmol/L (136-145); Thyroid Stimulating Hormone 1.553 uIU/mL (0.358-3.740); Total Protein 7.1 g/dL (6.4-8.2); Triglycerides 91 mg/dL (<=150); VLDL CHOLESTEROL 18.2 mg/dL
== END 2024-01-04 08:55 | disposition home or self-care (01) ==
LOC: LAB 08:55
PROVIDERS: PCP Family Medicine; Visit Provider Family Medicine
DX: Z00.00 Encounter for general adult medical examination without abnormal findings (principal)
CPT/HCPCS: 36415; 80048; 80061; 80076; 83036; 84443; 85025

== ENCOUNTER 2024-01-04 08:58 | Outpatient (OUT) | payer OTHER, BC, SELFPAY ==
--- OUTSIDE RECORDS SUMMARY | 2024-01-04 09:06 | XMS_ITS | CCD ---
Author Organization [facility] Care Team Providers Care Hand Spring Former Name Role Phone YESENIA, DR MICHELLE Schafer [...] MICHELLE Schafer Attending Unavailable NADERER, DR MICHELLE Schfaer Admitting Unavailable Shannon Peñaloza Unavailable Marycarmen Jean [...] [facility] Office Visiton 08-20-2023 Follow-up visit [id number] Raysa Tejada 1970 F Date Provider Department Center 08/20/2023 ALECIA MASTERSON Family History Problem Relation Age of Onset Other Mother Coronary artery disease Mother Family Status - Relation Status Age at Mother Level of Service:72488 [place] OFFICE/OUTPATIENT ESTABLISHED LOW MDM 20 MIN Reason for Visit and Comments: Follow-up [022444] - 3 month follow up Normal [facility] [place] Telemedicineon 06-01-2023 Telemedicine [id number] Raysa Tejada 1970 F Date Provider Department Center 06/01/2023 ALECIA MASTERSON Family History Problem Relation Age of Onset Other Mother Coronary artery disease Mother Family Status - Relation Status Age at Mother Level of Service:91267 [place] OFFICE/OUTPATIENT ESTABLISHED LOW MDM 20 MIN Normal [facility] [place] Office Visiton 02-27-2023 Follow-up visit [id number] Raysa Tejada 1970 F Date Provider Department Center 02/27/2023 ALECIA MASTERSON Family History Problem Relation Age of Onset Other Mother Coronary artery disease Mother Family Status - Relation Status Age at Mother Level of Service:61829 [place] OFFICE/OUTPATIENT NEW MODERATE MDM 45-59 MINUTES Normal [facility] [place] CULTURE BLOODon 10-15-2022 Microscopic examination of blood, [...] Trimethoprim/Sulfame thoxazole <=10 S C Normal [facility] Comment on above: Performed By: #### B MP #### [facility] [address] [place] [address] Dr. Abril Richmond CBC AUTO DIFFon 10-12-2022 BASO # 0.0 103/ul Normal 0.0-0.1 [facility] Comment on above: Performed By: #### B MP #### [facility] [address] [place] [address] Dr. Abril Richmond Basophils/100 WBC (Bld) 0.2 % Normal 0.2-2.0 [facility] Comment on above: Performed By: #### B MP #### [facility] [address] [place] [address] Dr. Abril Richmond EO # 0.0 103/ul Normal 0.0-0.7 [facility] Comment on above: Performed By: #### B MP #### [facility] [address] [place] [address] Dr. Abril Richmond Eosinophils/100 WBC (Bld) 0.1 % Critically low 0.9-7.0 [facility] Comment on above: Performed By: #### B MP #### [facility] [address] [place] [address] Dr. Abril Richmond Erythrocyte distribution width (RBC) [Ratio] 13.0 % Normal 11.0-15.0 [facility] Comment on above: Performed By: #### B MP #### [facility] [address] [address] [address] Abril Richmond Hematocrit (Bld) [Volume fraction] 33.6 % Critically low 36.0-48.0 [facility] Comment on above: Performed By: #### B MP #### [facility] [address] [address] [address] Abril Richmond Hemoglobin (Bld) [Mass/Vol] 10.9 g/dL Critically low 12.0-16.0 [facility] Comment on above: Performed By: #### B MP #### [facility] [address] [address] [address] Abril Richmond IG # 0.18 10e3/ul Critically high 0.00-0.03 [facility] Comment on above: Performed By: #### B MP #### [facility] [address] [place] [address] Dr. Abril Richmond IG % 1.4 % Critically high 0.0-0.5 [facility] Comment on above: Performed By: #### B MP #### [facility] [address] [place] [address] Dr. Abril Richmond LYMPH # 0.6 103/ul Critically low 1.2-3.8 [facility] Comment on above: Performed By: #### B MP #### [facility] [address] [place] [address] Dr. Abril Richmond Lymphocytes/100 WBC (Bld) 4.6 % Critically low 20.5-60.0 [facility] Comment on above: Performed By: #### B MP #### [facility] [address] [place] [address] Dr. Abril Richmond MANUAL DIFF REQ NO Normal [facility] Comment on above: Performed By: #### B MP #### [facility] [address] [place] [address] Dr. Abril Richmond MCH (RBC) [Entitic mass] 29.1 pg Normal 26.7-34.0 [facility] Comment on above: Performed By: #### B MP #### [facility] [address] [address] [address] Abril Richmond MCHC (RBC) [Mass/Vol] 32.4 g/dL Normal 29.9-35.2 [facility] Comment on above: Performed By: #### B MP #### [facility] [address] [address] [address] Abril Richmond MCV (RBC) [Entitic vol] 89.8 fL Normal 81.0-99.0 [facility] Comment on above: Performed By: #### B MP #### [facility] [address] [address] [address] Abril Richmond MONO # 0.5 103/ul Normal 0.3-0.8 [facility] Comment on above: Performed By: #### B MP #### [facility] [address] [address] [address] Abril Richmond Monocytes/100 WBC (Bld) 3.7 % Normal 1.7-12.0 [facility] Comment on above: Performed By: #### B MP #### [facility] [address] [address] [address] Abril Richmond NEUT # 12.0 103/ul Critically high 1.4-6.5 [facility] Comment on above: Performed By: #### B MP #### [facility] [address] [address] [address] Abril Richmond Neutrophils/100 WBC (Bld) 90.0 % Critically high 43.0-75.0 [facility] Comment on above: Performed By: #### B MP #### [facility] [address] [address] [address] Abril Richmond Platelet mean volume (Bld) [Entitic vol] 8.6 fL Critically low 9.5-13.5 [facility] Comment on above: Performed By: #### B MP #### [facility] [address] [address] [address] Abril Richmond PLT 334 103/ul Normal 150-450 [facility] Comment on above: Performed By: #### B MP #### [facility] [address] [address] [address] Abril Richmond RBC 3.74 106/ul Critically low 4.20-5.40 [facility] Comment on above: Performed By: #### B MP #### [facility] [address] [place] [address] Dr. Abril Richmond WBC 13.3 103/ul Critically high 4.0-11.0 [facility] Comment on above: Performed By: #### B MP #### [facility] [address] [place] [address] Dr. Abril Richmond PROF CHEM 8 (BAS METB)on Anion gap [Moles/Vol] 11.4 mmol/L Normal [facility] Comment on above: Performed By: #### B MP #### [facility] [address] [place] [address] Dr. Abril Richmond Calcium [Mass/Vol] 8.4 mg/dL Critically low 8.5-10.1 [facility] Comment on above: Performed By: #### B MP #### [facility] [address] [place] [address] Dr. Abril Richmond Chloride [Moles/Vol] 105 mmol/L Normal 98-107 [facility] Comment on above: Performed By: #### B MP #### [facility] [address] [place] [address] Dr. Abril Richmond CO2 [Moles/Vol] 28.5 mmol/L Normal 21.0-32.0 [facility] Comment on above: Performed By: #### B MP #### [facility] [address] [place] [address] Dr. Abril Richmond Creatinine [Mass/Vol] 0.81 mg/dL Normal 0.55-1.02 [facility] Comment on above: Performed By: #### B MP #### [facility] [address] [place] [address] Dr. Abril Richmond EGFR-AF ARGENTINE >60 Normal >=60 [facility] Comment on above: Performed By: #### B MP #### [facility] [address] [address] [address] Abril Richmond EGFR-NON AF ARGENTINE >60 Normal >=60 [facility] Comment on above: Performed By: #### B MP #### [facility] [address] [address] [address] Abril Richmond Glucose [Mass/Vol] 160 mg/dL Critically high 74-106 [facility] Comment on above: Performed By: #### B MP #### [facility] [address] [address] [address] Abril Richmond Potassium [Moles/Vol] 3.9 mmol/L Normal 3.5-5.1 [facility] Comment on above: Performed By: #### B MP #### [facility] [address] [address] [address] Abril Richmond Sodium [Moles/Vol] 141 mmol/L Normal 136-145 [facility] Comment on above: Performed By: #### B MP #### [facility] [address] [address] [address] Abril Richmond Urea nitrogen [Mass/Vol] 17.0 mg/dL Normal 7.0-18.0 [facility] Comment on above: Performed By: #### B MP #### [facility] [address] [address] [address] Abril Richmond Urea nitrogen/Creatinine [Mass ratio] 21.0 mg/mg Normal [facility] Comment on above: Performed By: #### B MP #### [facility] [address] [address] [address] Abril Richmond POINT OF CARE GLUCOSEon 09-19 Glucose [Mass/Vol] 167 mg/dL Critically high 74-106 [facility] Comment on above: Performed By: #### P OCGLUC #### [facility] [address] [address] [address] Abril Richmond XR CHEST 1 Von [...] JUNG BRUMFIELD Date: 2022-10-11 13:22 Normal [facility] BLOOD CULTURE ID PANELon A. baumannii Not detected Normal NOT DETECTED [facility] Comment on above: Performed By: #### B CID2 #### [facility] [address] [place] [address] Dr. Abril Richmond Bacteriodes fragilis Not detected Normal NOT DETECTED [facility] Comment on above: Performed By: #### B CID2 #### [facility] [address] [place] [address] Dr. Abril GRIFFITHD CONTROLS PASSED Normal [facility] Comment on above: Performed By: #### B CID2 #### [facility] [address] [place] [address] Dr. Abril GRIFFITHDBTHD BLOOD CULTURE BOTTLE INFORMATION Normal [facility] Comment on above: Performed By: #### B CID2 #### [facility] [address] [place] [address] Dr. Abril Richmond BCIDHD1 ANTIMICROBIAL RESISTANCE GENES Normal [facility] Comment on above: Performed By: #### B CID2 #### [facility] [address] [place] [address] Dr. Abril GRIFFITHDHD2 SEE BELOW Normal [facility] Comment on above: Result Comment: Note : Antimicrobial resitance can occur via multiple mechanisms. A Not Detected result for the [employer] antomicrobial resistance gene assays does not indicate antimicrobial susceptibility. Subculturing is required for species identification and susceptibility testing of isolates. Performed By: #### B CID2 #### [facility] [address] [place] [address] Dr. Abril Richmond BCIDHD3 Positive Normal [facility] Comment on above: Performed By: #### B CID2 #### [facility] [address] [place] [address] Dr. Abril Richmond BCIDHD4 Negative Normal [facility] Comment on above: Performed By: #### B CID2 #### [facility] [address] [place] [address] Dr. Abril Richmond BCIDHD5 YEAST Normal [facility] Comment on above: Performed By: #### B CID2 #### [facility] [address] [place] [address] Dr. Abril Richmond Bottle Set: Set 1 Normal [facility] Comment on above: Performed By: #### B CID2 #### [facility] [address] [place] [address] Dr. Abril Richmond Bottle: Aerobic Normal [facility] Comment on above: Performed By: #### B CID2 #### [facility] [address] [place] [address] Dr. Abril Richmond C. neoformans/gattii Not detected Normal NOT DETECTED [facility] Comment on above: Performed By: #### B CID2 #### [facility] [address] [place] [address] Dr. Abril Richmond Lucy albicans Not detected Normal NOT DETECTED [facility] Comment on above: Performed By: #### B CID2 #### [facility] [address] [place] [address] Dr. Abril Richmond Lucy auris Not detected Normal NOT DETECTED [facility] Comment on above: Performed By: #### B CID2 #### [facility] [address] [place] [address] Dr. Abril Richmond Lucy glabrata Not detected Normal NOT DETECTED [facility] Comment on above: Performed By: #### B CID2 #### [facility] [address] [place] [address] Dr. Abril Richmond Lucy Krusei Not detected Normal NOT DETECTED [facility] Comment on above: Performed By: #### B CID2 #### [facility] [address] [place] [address] Dr. Abril Richmond Lucy Parapsilosis Not detected Normal NOT DETECTED [facility] Comment on above: Performed By: #### B CID2 #### [facility] [address] [place] [address] Dr. Abril Richmond Lucy Tropicalis Not detected Normal NOT DETECTED [facility] Comment on above: Performed By: #### B CID2 #### [facility] [address] [place] [address] Dr. Abril Richmond CTX-M Resistant Gene Not Applicable Normal NOT DETECTE D [facility] Comment on above: Performed By: #### B CID2 #### [facility] [address] [place] [address] Dr. Abril Richmond E. Cloacae complex Not detected Normal NOT DETECTED [facility] Comment on above: Performed By: #### B CID2 #### [facility] [address] [place] [address] Dr. Abril Richmond E. faecalis Not detected Normal NOT DETECTED [facility] Comment on above: Performed By: #### B CID2 #### [facility] [address] [place] [address] Dr. Abril Richmond E. faecium Not detected Normal NOT DETECTED [facility] [place] [facility] Comment on above: Performed By: #### B CID2 #### [facility] [address] [place] [address] Dr. Abril Richmond Enterobacteriaceae Not detected Normal NOT DETECTED [facility] Comment on above: Performed By: #### B CID2 #### [facility] [address] [place] [address] Dr. Abril Richmond Escherichia coli Not detected Normal NOT DETECTED [facility] Comment on above: Performed By: #### B CID2 #### [facility] [address] [place] [address] Dr. Abril Richmond H. influenzae Not detected Normal NOT DETECTED [facility] Comment on above: Performed By: #### B CID2 #### [facility] [address] [place] [address] Dr. Abril Richmond IMP Resistant Gene Not Applicable Normal NOT DETECTED [facility] Comment on above: Performed By: #### B CID2 #### [facility] [address] [place] [address] Dr. Abril Richmond K. oxytoca Not detected Normal NOT DETECTED [facility] [place] [facility] Comment on above: Performed By: #### B CID2 #### [facility] [address] [place] [address] Dr. Abril Richmond K. pneumoniae Not detected Normal NOT DETECTED [facility] Comment on above: Performed By: #### B CID2 #### [facility] [address] [place] [address] Dr. Abril Richmond Klebsiella aerogenes Not detected Normal NOT DETECTED [facility] Comment on above: Performed By: #### B CID2 #### [facility] [address] [place] [address] Dr. Abril Richmond KPC Resistant Gene Not detected Normal NOT DETECTED [facility] Comment on above: Performed By: #### B CID2 #### [facility] [address] [place] [address] Dr. Abril Richmond List. monocytogenes Not detected Normal NOT DETECTED [facility] Comment on above: Performed By: #### B CID2 #### [facility] [address] [place] [address] Dr. Abril Richmond Mcr-1 Resistant Gene Not Applicable Normal NOT DETECTE D [facility] Comment on above: Performed By: #### B CID2 #### [facility] [address] [place] [address] Dr. Abril Richmond mecA/C Not Applicable Normal NOT DETECTED [facility] Comment on above: Performed By: #### B CID2 #### [facility] [address] [place] [address] Dr. Abril Richmond mecA/C MREJ Not Applicable Normal NOT DETECTED [facility] Comment on above: Performed By: #### B CID2 #### [facility] [address] [place] [address] Dr. Abril Richmond N. meningitidis Not detected Normal NOT DETECTED [facility] Comment on above: Performed By: #### B CID2 #### [facility] [address] [place] [address] Dr. Abril Richmond NDM Resistant Gene Not Applicable Normal NOT DETECTED [facility] Comment on above: Performed By: #### B CID2 #### [facility] [address] [place] [address] Dr. Abril Richmond Oxa-48-like Not Applicable Normal NOT DETECTED [facility] Comment on above: Performed By: #### B CID2 #### [facility] [address] [place] [address] Dr. Abril Richmond Proteus Not detected Normal NOT DETECTED [facility] [place] [facility] Comment on above: Performed By: #### B CID2 #### [facility] [address] [place] [address] Dr. Abril Richmond Pseud. aeruginosa Not detected Normal NOT DETECTED [facility] Comment on above: Performed By: #### B CID2 #### [facility] [address] [place] [address] Dr. Abril Richmond S. maltophilia Not detected Normal NOT DETECTED [facility] Comment on above: Performed By: #### B CID2 #### [facility] [address] [place] [address] Dr. Abril Richmond Salmonella Not detected Normal NOT DETECTED [facility] [place] [facility] Comment on above: Performed By: #### B CID2 #### [facility] [address] [place] [address] Dr. Abril Richmond Seratia marcescens Not detected Normal NOT DETECTED [facility] Comment on above: Performed By: #### B CID2 #### [facility] [address] [place] [address] Dr. Abril Richmond Site: R AC Normal [facility] Comment on above: Performed By: #### B CID2 #### [facility] [address] [place] [address] Dr. Abril Richmond Staph. aureus Not detected Normal NOT DETECTED [facility] Comment on above: Performed By: #### B CID2 #### [facility] [address] [place] [address] Dr. Abril Richmond Staph. epidermidis Detected Critically abnormal NOT DETECTED [facility] Comment on above: Performed By: #### B CID2 #### [facility] [address] [place] [address] Dr. Abril Richmond Staph. lugdunensis Not detected Normal NOT DETECTED [facility] Comment on above: Performed By: #### B CID2 #### [facility] [address] [place] [address] Dr. Abril Richmond Staphylococcus Detected Critically abnormal NOT DETECTED [facility] Comment on above: Performed By: #### B CID2 #### [facility] [address] [place] [address] Dr. Abril Richmond Strep. agalactiae Not detected Normal NOT DETECTED [facility] Comment on above: Performed By: #### B CID2 #### [facility] [address] [place] [address] Dr. Abril Richmond Strep. pneumoniae Not detected Normal NOT DETECTED [facility] Comment on above: Performed By: #### B CID2 #### [facility] [address] [place] [address] Dr. Abril Richmond Strep. pyogenes Not detected Normal NOT DETECTED [facility] Comment on above: Performed By: #### B CID2 #### [facility] [address] [place] [address] Dr. Abril Richmond Streptococcus Not detected Normal NOT DETECTED [facility] Comment on above: Performed By: #### B CID2 #### [facility] [address] [place] [address] Dr. Abril Richmond John/Audra Resist. Gene Not detected Normal NOT DETECTED [facility] Comment on above: Performed By: #### B CID2 #### [facility] [address] [place] [address] Dr. Abril Richmond VIM Resistant Gene Not Applicable Normal NOT DETECTED [facility] Comment on above: Performed By: #### B CID2 #### [facility] [address] [place] [address] Dr. Abril Richmond BNPon 10-10-2022 Natriuretic peptide B (Bld) [Mass/Vol] 194.0 pg/mL Normal <=900.0 [facility] Comment on above: Performed By: #### C MP, HSTROPN, BNP #### [facility] [address] [address] [address] Abril Richmond CBC AUTO DIFFon 10-10-2022 BASO # 0.0 103/ul Normal 0.0-0.1 [facility] Comment on above: Performed By: #### C BC #### [facility] [address] [address] [address] Abril Richmond Basophils/100 WBC (Bld) 0.2 % Normal 0.2-2.0 [facility] Comment on above: Performed By: #### C BC #### [facility] [address] [address] [address] Abril Richmond EO # 0.1 103/ul Normal 0.0-0.7 [facility] Comment on above: Performed By: #### C BC #### [facility] [address] [place] [address] Dr. Abril Richmond Eosinophils/100 WBC (Bld) 1.6 % Normal 0.9-7.0 [facility] Comment on above: Performed By: #### C BC #### [facility] [address] [place] [address] Dr. Abril Richmond Erythrocyte distribution width (RBC) [Ratio] 12.5 % Normal 11.0-15.0 [facility] Comment on above: Performed By: #### C BC #### [facility] [address] [place] [address] Dr. Abril Richmond Hematocrit (Bld) [Volume fraction] 39.2 % Normal 36.0-48.0 [facility] Comment on above: Performed By: #### C BC #### [facility] [address] [place] [address] Dr. Abril Richmond Hemoglobin (Bld) [Mass/Vol] 13.0 g/dL Normal 12.0-16.0 [facility] Comment on above: Performed By: #### C BC #### [facility] [address] [place] [address] Dr. Abril Richmond IG # 0.15 10e3/ul Critically high 0.00-0.03 [facility] Comment on above: Performed By: #### C BC #### [facility] [address] [place] [address] Dr. Abril Richmond IG % 1.8 % Critically high 0.0-0.5 [facility] Comment on above: Performed By: #### C BC #### [facility] [address] [place] [address] Dr. Abril Richmond LYMPH # 1.0 103/ul Critically low 1.2-3.8 [facility] [place] [facility] Comment on above: Performed By: #### C BC #### [facility] [address] [place] [address] Dr. Abril Richmond Lymphocytes/100 WBC (Bld) 11.7 % Critically low 20.5-60.0 [facility] Comment on above: Performed By: #### C BC #### [facility] [address] [place] [address] Dr. Abril Richmond MANUAL DIFF REQ NO Normal [facility] Comment on above: Performed By: #### C BC #### [facility] [address] [place] [address] Dr. Abril Richmond MCH (RBC) [Entitic mass] 29.8 pg Normal 26.7-34.0 [facility] Comment on above: Performed By: #### C BC #### [facility] [address] [place] [address] Dr. Abril Richmond MCHC (RBC) [Mass/Vol] 33.2 g/dL Normal 29.9-35.2 [facility] Comment on above: Performed By: #### C BC #### [facility] [address] [place] [address] Dr. Abril Richmond MCV (RBC) [Entitic vol] 89.9 fL Normal 81.0-99.0 [facility] Comment on above: Performed By: #### C BC #### [facility] [address] [place] [address] Dr. Abril Richmond MONO # 0.6 103/ul Normal 0.3-0.8 [facility] Comment on above: Performed By: #### C BC #### [facility] [address] [id number] Abril Richmond Monocytes/100 WBC (Bld) 7.0 % Normal 1.7-12.0 [facility] Comment on above: Performed By: #### C BC #### [facility] [address] [place] [address] Dr. Abril Richmond NEUT # 6.5 103/ul Normal 1.4-6.5 [facility] Comment on above: Performed By: #### C BC #### [facility] [address] [place] [address] Dr. Abril Richmond Neutrophils/100 WBC (Bld) 77.7 % Critically high 43.0-75.0 [facility] Comment on above: Performed By: #### C BC #### [facility] [address] [place] [address] Dr. Abril Richmond Platelet mean volume (Bld) [Entitic vol] 8.6 fL Critically low 9.5-13.5 [facility] Comment on above: Performed By: #### C BC #### [facility] [address] [place] [address] Dr. Abril Richmond PLT 321 103/ul Normal 150-450 [facility] Comment on above: Performed By: #### C BC #### [facility] [address] [place] [address] Dr. Abril Richmond RBC 4.36 106/ul Normal 4.20-5.40 [facility] Comment on above: Performed By: #### C BC #### [facility] [address] [place] [address] Dr. Abril Richmond WBC 8.4 103/ul Normal 4.0-11.0 [facility] Comment on above: Performed By: #### C BC #### [facility] [address] [place], [place] [id number] Dr. Abril Richmond CTA CHEST WO W [...] PEGGY CALVIN Date: 2022-10-10 05:03 Normal [facility] CULTURE BLOODon 10-10-2022 Microscopic examination of blood, culture Culture Observations: NO GROWTH AT 5 DAYS. Normal [facility] Comment on above: Performed By: #### B MP #### [facility] [address] [place] [address] Dr. Abril Richmond D-DIMERon 10-10-2022 D-DIMER 0.78 mg/L FEU Critically high <=0.59 [facility] Comment on above: Performed By: #### B MP #### [facility] [address] [place] [address] Dr. Abril Richmond D-DIMER COMMENTS SEE BELOW Normal [facility] Comment on above: Result Comment: Incr eases [...] hospitalization. Performed By: #### B MP #### [facility] [address] [place] [address] Dr. Abril Richmond LACTATE/LACTIC ACIDon 2022 Lactate [Moles/Vol] 0.8 mmol/L Normal 0.4-2.0 [facility] Comment on above: Performed By: #### L ACT #### [facility] [address] [place] [address] Dr. Abril Richmond PROF 14(COMP METB)on 023 Albumin [Mass/Vol] 3.4 g/dL Normal 3.4-5.0 [facility] Comment on above: Performed By: #### C MP, HSTROPN, BNP #### [facility] [address] [place] [address] Dr. Abril Richmond Albumin/Globulin [Mass ratio] 0.9 {ratio} Normal [facility] Comment on above: Performed By: #### C MP, HSTROPN, BNP #### [facility] [address] [address] [address] Abril Richmond ALP [Catalytic activity/Vol] 73 U/L Normal 46-116 [facility] Comment on above: Performed By: #### C MP, HSTROPN, BNP #### [facility] [address] [address] [address] Abril Richmond ALT [Catalytic activity/Vol] 29 U/L Normal 14-59 [facility] Comment on above: Performed By: #### C MP, HSTROPN, BNP #### [facility] [address] [address] [address] Abril Richmond Anion gap [Moles/Vol] 11.4 mmol/L Normal [facility] Comment on above: Performed By: #### C MP, HSTROPN, BNP #### [facility] [address] [place] [address] Dr. Abril Richmond AST [Catalytic activity/Vol] 22 U/L Normal 15-37 [facility] Comment on above: Performed By: #### C MP, HSTROPN, BNP #### [facility] [address] [place] [address] Dr. Abril Richmond Bilirubin [Mass/Vol] 0.3 mg/dL Normal 0.2-1.0 [facility] Comment on above: Performed By: #### C MP, HSTROPN, BNP #### [facility] [address] [address] [address] Abril Richmond Calcium [Mass/Vol] 8.4 mg/dL Critically low 8.5-10.1 [facility] Comment on above: Performed By: #### C MP, HSTROPN, BNP #### [facility] [address] [address] [address] Abril Richmond Chloride [Moles/Vol] 104 mmol/L Normal 98-107 [facility] Comment on above: Performed By: #### C MP, HSTROPN, BNP #### [facility] [address] [address] [address] Abril Richmond CO2 [Moles/Vol] 28.0 mmol/L Normal 21.0-32.0 [facility] Comment on above: Performed By: #### C MP, HSTROPN, BNP #### [facility] [address] [place] [address] Dr. Abril Richmond Creatinine [Mass/Vol] 0.96 mg/dL Normal 0.55-1.02 [facility] Comment on above: Performed By: #### C MP, HSTROPN, BNP #### [facility] [address] [place] [address] Dr. Abril Richmond EGFR-AF ARGENTINE >60 Normal >=60 [facility] Comment on above: Performed By: #### C MP, HSTROPN, BNP #### [facility] [address] [place] [address] Dr. Abril Richmond EGFR-NON AF ARGENTINE >60 Normal >=60 [facility] Comment on above: Performed By: #### C MP, HSTROPN, BNP #### [facility] [address] [place] [address] Dr. Abril Richmond Globulin (S) [Mass/Vol] 3.8 g/dL Normal [facility] Comment on above: Performed By: #### C MP, HSTROPN, BNP #### [facility] [address] [place] [address] Dr. Abril Richmond Glucose [Mass/Vol] 115 mg/dL Critically high 74-106 [facility] Comment on above: Performed By: #### C MP, HSTROPN, BNP #### [facility] [address] [place] [address] Dr. Abril Richmond Potassium [Moles/Vol] 3.4 mmol/L Critically low 3.5-5.1 [facility] Comment on above: Performed By: #### C MP, HSTROPN, BNP #### [facility] [address] [place] [address] Dr. Abril Richmond Protein [Mass/Vol] 7.2 g/dL Normal 6.4-8.2 [facility] Comment on above: Performed By: #### C MP, HSTROPN, BNP #### [facility] [address] [place] [address] Dr. Abril Richmond Sodium [Moles/Vol] 140 mmol/L Normal 136-145 [facility] Comment on above: Performed By: #### C MP, HSTROPN, BNP #### [facility] [address] [place] [address] Dr. Abril Richmond Urea nitrogen [Mass/Vol] 14.0 mg/dL Normal 7.0-18.0 [facility] Comment on above: Performed By: #### C MP, HSTROPN, BNP #### [facility] [address] [place] [address] Dr. Abril Richmond Urea nitrogen/Creatinine [Mass ratio] 14.6 mg/mg Normal [facility] Comment on above: Performed By: #### C MP, HSTROPN, BNP #### [facility] [address] [place] [address] Dr. Abril Richmond RESPIRATORY PANEL PLUSon Adenovirus Not detected Normal NOT DETECTED [facility] Comment on above: Performed By: #### F T4 #### [facility] [address] [place] [address] Dr. Abril Zhu. Parapertusis Not detected Normal NOT DETECTED [facility] Comment on above: Performed By: #### F T4 #### [facility] [address] [place] [address] Dr. Abril Frye Pertussis Not detected Normal NOT DETECTED [facility] Comment on above: Performed By: #### F T4 #### [facility] [address] [place] [address] Dr. Abril Richmond Chlamydia Pneumoniae Not detected Normal NOT DETECTED [facility] Comment on above: Performed By: #### F T4 #### [facility] [address] [place] [address] Dr. Abril Richmond Coronavirus 229E Not detected Normal NOT DETECTED [facility] Comment on above: Performed By: #### F T4 #### [facility] [address] [place] [address] Dr. Abril Richmond Coronavirus HKU1 Not detected Normal NOT DETECTED [facility] Comment on above: Performed By: #### F T4 #### [facility] [address] [place] [address] Dr. Abril Richmond Coronavirus NL63 Not detected Normal NOT DETECTED [facility] Comment on above: Performed By: #### F T4 #### [facility] [address] [place] [address] Dr. Abril Richmond Coronavirus OC43 Not detected Normal NOT DETECTED [facility] Comment on above: Performed By: #### F T4 #### [facility] [address] [address] [address] Abril Richmond Influenza A H1 Not detected Normal NOT DETECTED [facility] Comment on above: Performed By: #### F T4 #### [facility] [address] [place] [address] Dr. Abril Richmond Influenza A H1 2009 Not detected Normal NOT DETECTED [facility] Comment on above: Performed By: #### F T4 #### [facility] [address] [place] [address] Dr. Abril Richmond Influenza A H3 Not detected Normal NOT DETECTED [facility] Comment on above: Performed By: #### F T4 #### [facility] [address] [place] [address] Dr. Abril Richmond Influenza B Not detected Normal NOT DETECTED [facility] Comment on above: Performed By: #### F T4 #### [facility] [address] [place] [address] Dr. Abril Richmond Metapneumovirus Not detected Normal NOT DETECTED [facility] Comment on above: Performed By: #### F T4 #### [facility] [address] [address] [address] Abril Richmond Mycoplas. Pneumoniae Not detected Normal NOT DETECTED [facility] Comment on above: Performed By: #### F T4 #### [facility] [address] [place] [address] Dr. Abril Richmond Parainfluenza 1 Not detected Normal NOT DETECTED [facility] Comment on above: Performed By: #### F T4 #### [facility] [address] [place] [address] Dr. Abril Richmond Parainfluenza 2 Not detected Normal NOT DETECTED [facility] Comment on above: Performed By: #### F T4 #### [facility] [address] [place] [address] Dr. Abril Richmond Parainfluenza 3 Detected Abnormal NOT DETECTED [facility] Comment on above: Performed By: #### F T4 #### [facility] [address] [place] [address] Dr. Abril Richmond Parainfluenza 4 Not detected Normal NOT DETECTED [facility] Comment on above: Performed By: #### F T4 #### [facility] [address] [place] [address] Dr. Abril Richmond Rhino/Enterovirus Not detected Normal NOT DETECTED [facility] Comment on above: Performed By: #### F T4 #### [facility] [address] [place] [address] Dr. Abril Richmond RP2 Header 1 RESPIRATORY PANEL: VIRUSES Normal [facility] Comment on above: Performed By: #### F T4 #### [facility] [address] [place] [address] Dr. Abril Richmond RP2 Header 2 RESPIRATORY PANEL: BACTERIA Normal [facility] Comment on above: Performed By: #### F T4 #### [facility] [address] [place] [address] Dr. Abril Richmond RSV Not detected Normal NOT DETECTED [facility] Comment on above: Performed By: #### F T4 #### [facility] [address] [place] [address] Dr. Abril Richmond SARS-CoV-2 (COVID-19) RNA JORDI+probe Ql (Unsp spec) Not detected Normal NOT DETECTED [facility] Comment on above: Performed By: #### F T4 #### [facility] [address] [place] [address] Dr. Abril Richmond TROPONIN, HIGH SENSITIVITYon 10-10-2022 HSTROP 5.3 pg/mL Normal 4.0-51.3 [facility] Comment on above: Result Comment: CUT- OFF POINTS HAVE BEEN ESTABLISHED BASED ON THE FOURTH UNIVERSAL DEFINITIONS OF MYOCARDIAL INFARCTION. THE UPPER REFERENCE LIMIT (URL) OF TROPONIN, DEFINED THE 99TH PERCENTILE OF cTnI DISTRIBUTION IN A REFERENCE POPULATION, HAS BEEN CONFIRMED THE DECISION THRESHOLD FOR [place] DIAGNOSIS. Performed By: #### C MP, HSTROPN, BNP #### [facility] [address] [address] [address] Abril Richmond ECHOCARDIO M/2D COMPLETEon 1 06-10-2021 ECHOCARDIO M/2D COMPLETE Patient: RAYSA TEJADA Exam Date: 04/10/2022 : 1970 Gender:F Ordering : DR MICHELLE PATTERSON . Admission #: [id number] Family : Order #: [id number] CLICK HERE TO VIEW EXAM ECHOCARDIOGRAM REPORT [...] M.D. on 04/11/2022 at 18:48 Normal [facility] CBC AUTO DIFFon 03-09-2022 BASO # 0.0 103/ul Normal 0.0-0.1 [facility] Comment on above: Performed By: #### B MP #### [facility] [address] [place] [address] Dr. Abril Richmond Basophils/100 WBC (Bld) 0.5 % Normal 0.2-2.0 [facility] Comment on above: Performed By: #### B MP #### [facility] [address] [place] [address] Dr. Abril Richmond EO # 0.2 103/ul Normal 0.0-0.7 [facility] Comment on above: Performed By: #### B MP #### [facility] [address] [place] [address] Dr. Abril Richmond Eosinophils/100 WBC (Bld) 2.0 % Normal 0.9-7.0 [facility] Comment on above: Performed By: #### B MP #### [facility] [address] [place] [address] Dr. Abril Richmond Erythrocyte distribution width (RBC) [Ratio] 12.7 % Normal 11.0-15.0 [facility] Comment on above: Performed By: #### B MP #### [facility] [address] [place] [address] Dr. Abril Richmond Hematocrit (Bld) [Volume fraction] 39.8 % Normal 36.0-48.0 [facility] Comment on above: Performed By: #### B MP #### [facility] [address] [place] [address] Dr. Abril Richmond Hemoglobin (Bld) [Mass/Vol] 13.0 g/dL Normal 12.0-16.0 [facility] Comment on above: Performed By: #### B MP #### [facility] [address] [place] [address] Dr. Abril Richmond IG # 0.03 10e3/ul Normal 0.00-0.03 [facility] Comment on above: Performed By: #### B MP #### [facility] [address] [place] [address] Dr. Abril Richmond IG % 0.4 % Normal 0.0-0.5 [facility] Comment on above: Performed By: #### B MP #### [facility] [address] [place] [address] Dr. Abril Richmond LYMPH # 1.9 103/ul Normal 1.2-3.8 [facility] Comment on above: Performed By: #### B MP #### [facility] [address] [place] [address] Dr. Abril Richmond Lymphocytes/100 WBC (Bld) 24.1 % Normal 20.5-60.0 [facility] Comment on above: Performed By: #### B MP #### [facility] [address] [place] [address] Dr. Abril Richmond MANUAL DIFF REQ NO Normal [facility] Comment on above: Performed By: #### B MP #### [facility] [address] [place] [address] Dr. Abril Richmond MCH (RBC) [Entitic mass] 30.0 pg Normal 26.7-34.0 [facility] Comment on above: Performed By: #### B MP #### [facility] [address] [place] [address] Dr. Abril Richmond MCHC (RBC) [Mass/Vol] 32.7 g/dL Normal 29.9-35.2 [facility] Comment on above: Performed By: #### B MP #### [facility] [address] [place] [address] Dr. Abirl Richmond MCV (RBC) [Entitic vol] 91.7 fL Normal 81.0-99.0 [facility] Comment on above: Performed By: #### B MP #### [facility] [address] [place] [address] Dr. Abril Richmond MONO # 0.6 103/ul Normal 0.3-0.8 [facility] Comment on above: Performed By: #### B MP #### [facility] [address] [place] [address] Dr. Abril Richmond Monocytes/100 WBC (Bld) 7.3 % Normal 1.7-12.0 [facility] Comment on above: Performed By: #### B MP #### [facility] [address] [place] [address] Dr. Abril Richmond NEUT # 5.2 103/ul Normal 1.4-6.5 [facility] Comment on above: Performed By: #### B MP #### [facility] [address] [place] [address] Dr. Abril Richmond Neutrophils/100 WBC (Bld) 65.7 % Normal 43.0-75.0 [facility] Comment on above: Performed By: #### B MP #### [facility] [address] [place] [address] Dr. Abril Richmond Platelet mean volume (Bld) [Entitic vol] 8.9 fL Critically low 9.5-13.5 [facility] Comment on above: Performed By: #### B MP #### [facility] [address] [place] [address] Dr. Abril Richmond PLT 408 103/ul Normal 150-450 [facility] Comment on above: Performed By: #### B MP #### [facility] [address] [place] [address] Dr. Abril Richmond RBC 4.34 106/ul Normal 4.20-5.40 [facility] Comment on above: Performed By: #### B MP #### [facility] [address] [place] [address] Dr. Abril Richmond WBC 8.0 103/ul Normal 4.0-11.0 [facility] Comment on above: Performed By: #### B MP #### [facility] [address] [place] [address] Dr. Abril Richmond FREE T3on 03-09-2022 FREE T3 2.58 pg/mlL Normal 2.18-3.98 [facility] Comment on above: Performed By: #### T SH, FT3, BMP #### [facility] [address] [place] [address] Dr. Abril Richmond FREE T4on 03-09-2022 Free T4 [Mass/Vol] 1.04 ng/dL Normal 0.76-1.46 [facility] Comment on above: Performed By: #### F T4 #### [facility] [address] [address] [address] Arbil Richmond PROF CHEM 8 (BAS METB)on Anion gap [Moles/Vol] 8.2 mmol/L Normal [facility] Comment on above: Performed By: #### B MP #### [facility] [address] [place] [address] Dr. Abril Richmond Calcium [Mass/Vol] 8.7 mg/dL Normal 8.5-10.1 [facility] Comment on above: Performed By: #### B MP #### [facility] [address] [place] [address] Dr. Abril Richmond Chloride [Moles/Vol] 105 mmol/L Normal 98-107 [facility] Comment on above: Performed By: #### B MP #### [facility] [address] [place] [address] Dr. Abril Richmond CO2 [Moles/Vol] 27.0 mmol/L Normal 21.0-32.0 [facility] Comment on above: Performed By: #### B MP #### [facility] [facility] [address] [place] [address] Dr. Abril Richmond Creatinine [Mass/Vol] 0.81 mg/dL Normal 0.55-1.02 [facility] Comment on above: Performed By: #### B MP #### [facility] [address] [place] [address] Dr. Abril Richmond EGFR-AF ARGENTINE >60 Normal >=60 [facility] Comment on above: Performed By: #### B MP #### [facility] [address] [address] [address] Abril Richmond EGFR-NON AF ARGENTINE >60 Normal >=60 [facility] Comment on above: Performed By: #### B MP #### [facility] [address] [place] [address] Dr. Abril Richmond Glucose [Mass/Vol] 79 mg/dL Normal 74-106 [facility] Comment on above: Performed By: #### B MP #### [facility] [address] [address] [address] Abril Richmond Potassium [Moles/Vol] 4.2 mmol/L Normal 3.5-5.1 [facility] Comment on above: Performed By: #### B MP #### [facility] [address] [place], [place] [address] Dr. Abril Richmond Sodium [Moles/Vol] 136 mmol/L Normal 136-145 [facility] Comment on above: Performed By: #### B MP #### [facility] [address] [address] [address] Abril Richmond Urea nitrogen [Mass/Vol] 17.0 mg/dL Normal 7.0-18.0 [facility] Comment on above: Performed By: #### B MP #### [facility] [address] [address] [address] Abril Richmond Urea nitrogen/Creatinine [Mass ratio] 21.0 mg/mg Normal [facility] Comment on above: Performed By: #### B MP #### [facility] [address] [address] [address] Abril Richmond TSHon 03-09-2022 TSH 1.342 uIU/mL Normal 0.358-3.740 [facility] Comment on above: Performed By: #### B MP #### [facility] [address] [address] [address] Abril Richmond Vital Signs Date Time Vital Sign Value Performing Clinician Facility 05-15-2023 17:10-0500 Body height 167.64 cm Marycarmen Jean Other [facility] [facility] Other 05-15-2023 17:10-0500 Body mass index (BMI) [Ratio] 30.92 kg/m2 Marycarmen Jean Other [facility] Other 05-15-2023 17:10-0500 Body temperature 97.6 [degF] Marycarmen Jean Other [facility] Other 05-15-2023 17:10-0500 Body weight 86.91 kg Marycarmen Miranda Other [facility] Other 05-15-2023 17:10-0500 Respiratory rate 18 /min Marycarmen Miranda Other [facility] Other 05-15-2023 17:10-0500 SaO2% (BldA) [Mass fraction] 89 % Marycarmen Miranda Other [facility] Other 03-05-2023 13:00-0400 Body height 167.64 cm Shannon Husseinmond Other [facility] Other 03-05-2023 13:00-0400 Body mass index (BMI) [Ratio] 31.47 kg/m2 Shannon Anabela Other [facility] Other 03-05-2023 13:00-0400 Body temperature 98 [degF] Shannon Anabela Other [facility] Other 03-05-2023 13:00-0400 Body weight 88.45 kg Shannon Anabela Other [facility] Other 03-05-2023 13:00-0400 Diastolic blood pressure 79 mm[Hg] Shannon Anbaela Other [facility] Other 03-05-2023 13:00-0400 Respiratory rate 18 /min Shannon Anabela Other [facility] Other 03-05-2023 13:00-0400 SaO2% (BldA) [Mass fraction] 95 % Shannon Anabela Other [facility] Other 03-05-2023 13:00-0400 Systolic blood pressure 127 mm[Hg] Shannon Peñaloza Other [facility] Other Encounters Encounter Date Encounter Type Care Provider Facility Start: 12-17-2023 End: 12-17-2023 ambulatory CHICO JERONIMO Not Available Start: 11-20-2023 End: 11-20-2023 ambulatory MICHELLE PATTERSON Not Available Start: 09-26-2023 End: 09-26-2023 ambulatory SHAIKH MICHAEL Not Available Start: 08-20-2023 End: 08-20-2023 ambulatory [facility] Start: 06-01-2023 ambulatory [facility] Start: 05-15-2023 End: 05-15-2023 ambulatory Marycarmen Jean Other [facility] Other Start: 05-15-2023 Patient encounter procedure Marycarmen Jean [facility] Start: 03-05-2023 End: 03-05-2023 ambulatory Shannon Peñaloza Other [facility] Other Start: 03-05-2023 Office outpatient visit 15 minutes Shannon Peñaloza [facility] Start: 02-27-2023 End: 02-27-2023 ambulatory [facility] Start: 10-11-2022 End: 10-12-2022 Evaluation and management of inpatient DR MICHELLE PATTERSON Facility:[facility] Start: 04-10-2022 End: 04-11-[address] MICHELLE PATTERSON Facility:[facility] Start: 03-09-2022 End: 03-10-[address] MICHELLE PATTERSON Facility:[facility] Procedures Date Procedure Procedure Detail Performing Clinician Start: 08-20-2023 [facility] Payers Date Payer Category Payer Unknown [id number] 2.16.84 [id number] 1970 Unknown [id number] 2.16.84 [id number] 1970 Unknown [id number] 2.16.84 [id number] 1972 Unknown [id number] 2.16.84 [id number] 1972 Unknown [id number] 2.16.84 [id number] 1972 Unknown [id number] 2.16.84 [id number] 1957 Private Health Insurance [id number] 1957 Unknown [id number] Social History Date Type Detail Facility Unknown if ever smoked [facility] Other Sex Assigned At Sex Assigned At Bir th [facility] Other Progress note 08-20-2023 Note Date & [...] as needed. Alecia Cohen MD Interventional Cardiology [facility] Progress note 06-01-2023 Note Date & [...] that using 3rd libertarian telecommunication application (e.g., [employer]) is not HIPPA compliant and may carry [...] as needed. Alecia Cohen MD Interventional Cardiology [facility] Progress note 06-01-2023 Note Date & Type Note Facility 06-01-2023 Note Telephone visit for follow up stress test and echo done at [facility] a few weeks ago. Dr. Nesbitt recently prescribed her Advair inhaler and had her on prednisone for a bit for SOB. Says she feels much better. Still has some chest pressure. [facility] Evaluation note 05-15-2023 Note Date & Type Note Facility 05-15-2023 Evaluation note Encounter Date Diagnosis Assessment Notes Apr, Other Has been unable to keep fluid or food down > 24 hours. Low O2 sat. Referred to ER. [facility] Other Evaluation note 03-05-2023 Note Date & Type Note Facility 03-05-2023 Evaluation note Encounter Date Diagnosis Assessment Notes Feb, Bronchitis (ICD-10 - J40) Drink plenty fluids, get plenty of rest. Take the azithromycin as prescribed until gone. Continue home medications as prescribed. Contact your strategic planning manager and notify him of your symptoms and the treatment with azithromycin. Follow-up as instructed. Follow-up with your cardiology testing as scheduled. Go to the ER for worsening symptoms or concerns. [facility] Other Progress note 02-27-2023 Note Date & [...] has a past surgical history that includes [place] tooth extraction. Social History She reports that [...] or concerns. Alecia Cohen MD Interventional Cardiology [facility] Progress note 02-27-2023 Note Date & Type Note Facility 02-27-2023 Note New patient here to establish care. Ref from Dr. Nesbitt for SOB and chest pressure. She was admitted to [facility] in September 2022 for respiratory [...] All other systems reviewed and are negative. [facility] History general Narrative - Reported 09-18-2022 Note Date & Type Note Facility 09-18-2022 History general N arrative - Reported Type Surgical History wisdom teeth extract Hospitalization History parainfluenza with hypox ia 09/2022 [facility] Other Summary Purpose Family History No Family History Records FoundNo Family History Records FoundNo Family History Records Found Advance Directives No Advanced Directives Records FoundNo Advanced Directives Records FoundNo Advanced Directives Records Found Additional Source Comments INFORMATION SOURCE (unrecogn ized section and content) DATE CREATED AUTHOR 10/28/2022 [facility] DATE CREATED AUTHOR AUTHOR'S ORGANIZ ATION 10/24/2023 [facility] DATE CREATED AUTHOR AUTHOR'S ORGANIZ ATION 12/18/2023 [facility] EPIC REASON FOR VISIT (unrecogniz ed [...] BE BASED ON THE PRIMARY CLINICAL RECORDS. [employer] provides no warranty or guarantee of the accuracy or completeness of information in this document.
[2024-01-04 11:02] LABS: Percent Iron Saturation 15.9 %
[2024-01-05 04:10] LABS: DHEA-Sulfate 86.2 ug/dL (41.2-243.7); FSH 3.2 mIU/mL (.); Luteinizing Hormone(LH) 5.4 mIU/mL (.); Progesterone 8.3 ng/mL (.); Sex Horm Binding Glob, Serum 46.3 nmol/L (17.3-125.0)
[2024-01-07 14:09] LABS: Calcitriol(1,25 di-OH Vit D) 36.4 pg/mL (24.8-81.5)
[2024-01-08 19:10] LABS: Free Testosterone(Direct) 0.3 pg/mL (0.0-4.2); Testosterone 5 ng/dL (4-50)
[2024-01-09 19:07] LABS: Estrone, Serum 69 pg/mL (.)
== END 2024-01-04 08:59 | disposition home or self-care (01) ==
LOC: LAB 08:59
PROVIDERS: PCP Family Medicine; Visit Provider Specialist
DX: Z00.00 Encounter for general adult medical examination without abnormal findings (principal); D59.9 Acquired hemolytic anemia, unspecified; D64.9 Anemia, unspecified; E34.9 Endocrine disorder, unspecified; Z13.29 Encounter for screening for other suspected endocrine disorder
CPT/HCPCS: 36415; 80048; 80061; 80076; 82533; 82627; 82652; 82670; 82679; 83001; 83002; 83036; 83540; 83550; 84144; 84270; 84402; 84403; 84443; 85025

== ENCOUNTER 2024-12-15 14:51 | Outpatient (OUT) | payer OTHER, BC, SELFPAY ==
--- OUTSIDE RECORDS SUMMARY | 2023-12-27 07:14 | XMS_ITS ---
Author Organization [facility] in [place] Address [address] [place] [address] Care Team Providers Care Human Resource Adviser Name Role Phone Regan Crain MD Primary Care Provider Unavailab Ruel Machado Unavailable [phone] REASON FOR VISIT Inhalers Encounters Encounter Location Date Provider Diagnosis [facility] [address] [place] [address] 12/27/2023 Ruel Nesbitt Plan Of Treatment No Information Progress Notes * Raysa CAMARGO EDOB:1970 ( 53 yo F)Acc No.[id number]:12/27/2023 Patient: Raysa WARD :1970 A ge:53 Y S ex:Female Address:[address] [place] [place] [id number] * true * Date: Generated for Ching valencia/Kendrick/eTransmitting on: 0 12/15/2024 02:52 PM EDT
--- OUTSIDE RECORDS SUMMARY | 2024-09-01 07:28 | XMS_ITS ---
Author Organization [facility] [place] Address [address] [place] [address] Care Team Providers Care Powerplant Operator Name Role Phone Regan Crain MD Primary Care Provider Unavailab Ruel Machado Unavailable [phone] REASON FOR VISIT Appointment Cancel Encounters Encounter Location Date Provider Diagnosis Pulmonary Medicine [place] [address] [place] [address] 09/01/2024 Ruel Nesbitt Plan Of Treatment No Information Progress Notes * Raysa CAMARGO EDOB:1970 ( 53 yo F)Acc No.[id number]:09/01/2024 Patient: Raysa WARD :1970 A ge:53 Y S ex:Female Address:[address] [place] [id number] * true * Date: Generated for Ching valencia/Kendrick/eTransmitting on: 0 12/15/2024 02:53 PM EDT
--- OUTSIDE RECORDS SUMMARY | 2024-09-02 10:00 | XMS_ITS ---
Author Organization [facility] [place] Address [address] [place] [address] Care Team Providers Care Embossing Machine Tender Name Role Phone Regan Crain MD Primary Care Provider Unavailab Ruel Machado Unavailable [phone] REASON FOR VISIT 1YEAR-ASTHMA Encounters Encounter Location Date Provider Diagnosis Pulmonary Medicine [place] [address] [place] [address] 09/02/2024 Ruel Nesbitt Plan Of Treatment No Information Progress Notes * Raysa CAMARGO EDOB:1970 ( 54 yo F)Acc No.[id number]:09/02/2024 UNLOCKED PROGRESS NOTE Follow Up Patient: Raysa WARD Provider: Yaw Nesbitt DO :1970 A ge:53 Y S ex:Female Date:09/02/2024 Address:[address] [place], [place] [phone] Pcp:Regan Crain MD Subjective: * Chief Complaints: * 1 . 1YEAR-ASTHMA. * Medical History: Objective: * Vitals: Assessment: Plan: * Treatment: * * Electronic signature of Cassandra Nesbitt DO on 12/15/2024 at 02:52 PM EDT Sign off status: Pending Visit Status: C ANC (Cancelled) * Provider: Yaw Nesbitt DO Date: 0 09/02/2024 Generated for Printi ng/Faxing/eTransmitting on: 0 12/15/2024 02:52 PM EDT
--- OUTSIDE RECORDS SUMMARY | 2024-12-10 08:45 | XMS_ITS | Encounter Summary ---
Author Organization [facility] Address [address] [place] [address] Care Team Providers Care Auto Machinist Name Role Phone Regan Crain MD Primary Care Provider [phone] Reason for Referral * Other Medical (Routine) - Authorized Specialty Diagnoses / Procedures Referred By Contac t Referred To Contact Neurology Diagnoses Lumbar disc herniation with radiculopathy Numbness Leg pain, left Procedures EMG AND NERVE CONDUCTION STUDY Regan Crain MD [address] [place] [address] Phone: tel: fax: Francisco Portillo MD [address] [facility] [address] [address] Phone: tel: fax: Referral ID Status Reason Start Date Expiration Date V isits Requested Visits Authorized [id number] Authorized 12/10/2024 06/08/2025 1 1 Reason for Visit * Reason Comments Follow-up Numbness in leg, get s warm to touch Encounter Details Date Type Department Care Team (Late st Contact Info) Description 12/10/2024 8:45 AM EDT Office Visit [facility] [address] [place] [id number] Regan Crain MD [address] [place] [address] Annual physical exam (Primary Dx); Lumbar disc herniation with radiculopathy; Degeneration of intervertebral disc of lumbar region with discogenic back pain and lower extremity pain; Uterine leiomyoma, unspecified location; Numbness; Leg pain, left Social History Tobacco Use Types Packs/Day Years Used Date Smoking Tobacco: Former Cigarettes Q uit: 2002 Passive Smoke Exposure: Past Smokeless Tobacco: Never Alcohol Use Standard Drinks/Week Comments Never 0 (1 standard drink = 0.6 oz pur e alcohol) AUDIT-C Answer Date Recorded Q1: How often do you have a drink containing alc ohol? Monthly or less 12/17/2023 Q2: How many drinks containi ng alcohol do you have on a typical day when you are drinking? 1 or 2 12/17/2023 Q3: How often do you have si x or more drinks on one occasion? Less than monthly 12/17/2023 PHQ-2 Answer Date Recorded Patient Health Questionnaire-2 Score 0 02/04/2024 Comments No Sex and Gender Information Value Date Recorded Sex Assigned at Not on file Legal Sex Female 6:58 PM EDT Gender Identity Not on file Sexual Orientation Not on file documented as of this encounter Last Filed Vital Signs Vital Sign Reading Time Taken Comments Blood Pressure 130/90 12/10/2024 8:50 AM EDT Pulse 79 12/10/2024 8:50 AM EDT Temperature 36.2 C (97.1 F) 12/10/2024 8:50 AM EDT Respiratory Rate 20 12/10/2024 8:50 AM EDT Oxygen Saturation 96% 12/10/2024 8:50 AM EDT Inhaled Oxygen Concentration - - Weight 91.2 kg (201 lb) 12/10/2024 8:50 AM EDT Height 165.1 cm (5' 5 ) 12/10/2024 8:50 AM EDT Body Mass Index 33.45 12/10/2024 8:50 AM EDT documented in this encounter Progress Notes * Regan Crain MD - 12/10/2024 9:24 AM EDTAssociated Problem(s): Fibroid uterus Check labs and follow with building cleaner. * Regan Crain MD - 12/10/2024 9:24 AM EDTAssociated Problem(s): Lumbar disc herniation with radiculopathy Mild pain but worsening radicular symptoms. Check x-ray and EMG. Likely will need MRI. * Regan Crain MD - 12/10/2024 9:24 AM EDTAssociated Problem(s): DDD (degenerative disc disease), lumbar Mild pain but worsening radicular symptoms. Check x-ray and EMG. Likely will need MRI. * Regan Crain MD - 12/10/2024 9:24 AM EDTAssociated Problem(s): Annual physical exam Due for labs and mammogram. Discussed proper diet and regular aerobic exercise. Need aerobic exercise 5-6 days a week for 30 minutes at a time. Smaller portions and limit total calories. Colonoscopy every 10 years. Tetanus every 10 years. Advised not to smoke. * Regan Crain MD - 12/10/2024 8:45 AM EDT Images from the original note were not included. Subjective Patient ID: Raysa Tejada is a 53 y.o. female who presents for Follow-up (Numbness in leg, gets warm to touch). Presents for annual PE. Weight up 4 pounds in the past year. C/o severe fatigue and tired all the time. No energy and no longer exercising due to fatigue. Tries to watch diet and eat healthy. Increased fruits and vegetables. Smaller portions and limits snacking. Tries to limit total daily calories.Due for labs. C/o heavy menses and following with building cleaner. US showed fibroids. C/o numbness in left thigh for years but getting worse. Now larger area involved. Severe numbness worse with sitting and will occur after shorter duration of sitting. No weakness in leg. Mild pain in low back. MRI over 5 years ago showed herniated lumbar disc. Review of Systems Respiratory: Negative for cough, shortness of breath and wheezing. Cardiovascular: Negative for chest pain and palpitations. Gastrointestinal: Negative for abdominal pain, diarrhea, nausea and vomiting. Genitourinary: Negative for dysuria. Objective Physical Exam Constitutional: General: She is not in acute distress. Appearance: Normal appearance. HENT: Head: Normocephalic. Right Ear: Tympanic membrane normal. Left Ear: Tympanic membrane normal. Eyes: Extraocular Movements: Extraocular movements intact. Pupils: Pupils are equal, round, and reactive to light. Cardiovascular: Rate and Rhythm: Normal rate and regular rhythm. Heart sounds: No murmur heard. No friction rub. No gallop. Pulmonary: Effort: Pulmonary effort is normal. Breath sounds: Normal breath sounds. No wheezing, rhonchi or rales. Abdominal: General: Bowel sounds are normal. There is no distension. Palpations: Abdomen is soft. Tenderness: There is no abdominal tenderness. There is no guarding or rebound. Musculoskeletal: General: No swelling or tenderness. Cervical back: Neck supple. Right lower leg: No edema. Left lower leg: No edema. Skin: Findings: No erythema or rash. Neurological: General: No focal deficit present. Mental Status: She is alert and oriented to person, place, and time. Cranial Nerves: No cranial nerve deficit. Motor: No weakness. Gait: Gait normal. Assessment/Plan Problem List Items Addressed This Visit Fibroid uterus Check labs and follow with building cleaner. Annual physical exam - Primary Due for labs and mammogram. Discussed proper diet and regular aerobic exercise. Need aerobic exercise 5-6 days a week for 30 minutes at a time. Smaller portions and limit total calories. Colonoscopy every 10 years. Tetanus every 10 years. Advised not to smoke. Relevant Orders Hemoglobin A1c Basic metabolic panel CBC and differential Hepatic function panel Lipid panel TSH Lumbar disc herniation with radiculopathy Mild pain but worsening radicular symptoms. Check x-ray and EMG. Likely will need MRI. Relevant Orders XR lumbar spine 2 or 3 views EMG AND NERVE CONDUCTION STUDY DDD (degenerative disc disease), lumbar Mild pain but worsening radicular symptoms. Check x-ray and EMG. Likely will need MRI. Relevant Orders XR lumbar spine 2 or 3 views Other Visit Diagnoses Numbness Relevant Orders EMG AND NERVE CONDUCTION STUDY Leg pain, left Relevant Orders EMG AND NERVE CONDUCTION STUDY documented in this encounter Plan of Treatment Upcoming Encounters Date Type Department Care Team (Late st Contact Info) Description 12/18/2024 8:30 AM EDT Ancillary Procedure [facility] [address] [place] [address] 12/18/2024 9:15 AM EDT Office Visit [facility] [address] [place] [phone] Мария Beck MD [address] [place] [address] Scheduled Orders Name Type Priority Associated Diagnoses Orde r Schedule Hemoglobin A1c Lab Routine Annual physical exam Expected: 12/10/2024 (Approximate), Expires: 12/10/2025 Basic metabolic panel Lab Routine Annual physical exam Expected: 12/10/2024 (Approximate), Expires: 12/10/2025 CBC and differential Lab Routine Annual physical exam Expected: 12/10/2024 (Approximate), Expires: 12/10/2025 Hepatic function panel Lab Routine Annual physical exam Expected: 12/10/2024 (Approximate), Expires: 12/10/2025 Lipid panel Lab Routine Annual physical exam Expected: 12/10/2024 (Approximate), Expires: 12/10/2025 TSH Lab Routine Annual physical exam Expected: 12/10/2024 (Approximate), Expires: 12/10/2025 XR lumbar spine 2 or 3 views Imaging Routine 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 and lower extremity pain Expected: 12/10/2024, Expires: 12/10/2025 EMG AND NERVE CONDUCTION STUDY Neurology Routine Lumbar disc herniation with radiculopathy Numbness Leg pain, left Expected: 12/10/2024 (Approximate), Expires: 12/10/2025 documented as of this encounter Visit Diagnoses Diagnosis Annual physical exam- Primary Routine general medical examination at a health care facility Lumbar disc herniation with radiculopathy Displacement of lumbar intervertebral disc without myelopathy Degeneration of intervertebral disc of lumbar region with discogenic back pain and lower extremity pain Uterine leiomyoma, unspecified location Numbness Disturbance of skin sensation Leg pain, left Pain in soft tissues of limb documented in this encounter Care Teams Auto Machinist Relationship Specialty Start Date End Date Regan Crain MD [address] [place] [address] PCP - General Family Medicine 09/26/23 documented as of this encounter
--- OUTSIDE RECORDS SUMMARY | 2024-12-15 14:53 | XMS_ITS | Clinical Summary ---
Author Organization [facility] Address [address] [place] [address] Care Team Providers Care Poultry Scientist Name Role Phone Regan Crain MD Primary Care Provider [phone] Allergies No known active allergies Medications fluticasone propion-salmeter oL (Advair HFA) 115-21 mcg/actuation inhaler every 12 (twelve) hours. 05/22/2023 Active meclofenamate (Meclomen) 100 mg capsule Take 100 mg by mouth every 6 (six) hours. 07/30/2024 Active Joyeaux 0.1 mg-0.02 mg (21)/iron (7) tablet Take 1 tablet by mouth in the morning. Active Active Problems Problem Noted Date Diagnosed Date Annual physical exam 11/20/2023 Fibrocystic breast changes 09/26/2023 Excessive and frequent menstruation 09/26/2023 Intermittent asthma without complication 023 Family History Medical History Relation Name Comments Coronary artery disease Mother smoker Mother Relation Name Status Comments Mother Social History Tobacco Use Types Packs/Day Years Used Date Smoking Tobacco: Never Smokeless Tobacco: Never Tobacco Cessation:Counseling Given: Not Answered Alcohol Use Standard Drinks/Week Comments Never 0 (1 standard drink = 0.6 oz pur e alcohol) [place] Safety & Environment Answer Date Rec orded Fear of Current or Ex-Partner Not on file Emotionally Abused Not on file 07/13/2023 Physically Abused Not on file 07/13/2023 Sexually Abused Not on file 07/13/2023 Physically or Sexually Abused Not on file Comments Unknown Sex and Gender Information Value Date Recorded Sex Assigned at Not on file Legal Sex Female 1:51 PM EDT Gender Identity Not on file Sexual Orientation Not on file Last Filed Vital Signs Vital Sign Reading Time Taken Comments Blood Pressure 110/70 08/20/2023 11:42 AM EDT Pulse 71 08/20/2023 11:42 AM EDT Temperature - - Respiratory Rate 11 08/20/2023 11:42 AM EDT Oxygen Saturation 98% 08/20/2023 11:42 AM EDT Inhaled Oxygen Concentration - - Weight 89.8 kg (198 lb) 08/20/2023 11:42 AM EDT Height 167.6 cm (5' 6 ) 08/20/2023 11:42 AM EDT Body Mass Index 31.96 08/20/2023 11:42 AM EDT Plan of Treatment Health Maintenance Due Date Last Done Comments CT Colonography 1972 Colonoscopy 1972 Colorectal Cancer Screening 1972 FIT-DNA 1972 FIT 1972 FOBT 1972 Sigmoidoscopy 1972 Depression Screening 1984 Hepatitis B Vaccines (1 of 3 - 19+ 3-dose series) 12/13/1991 Pneumococcal Vaccine: Pediat rics (0 to 5 Years) and At-Risk Patients (6 to 64 Years) (1 of 2 - PCV) 12/13/1991 Pap Smear 1993 Adult Tetanus 1994 Cervical Cancer Screening 2002 HPV/Cotest 2002 Zoster Vaccines (1 of 2) 2022 COVID-19 Vaccine (1 - 2023-2 5 season) 2024 Influenza Vaccine (#1) 2025 Mammogram 01/31/2026 02/01/2024 HIB Vaccines Aged Out No longer eligi ble based on patient's age to complete this topic HPV Vaccines Aged Out No longer eligi ble based on patient's age to complete this topic IPV Vaccines Aged Out No longer eligi ble based on patient's age to complete this topic Meningococcal B Vaccine Aged Out No l onger eligible based on patient's age to complete this topic Meningococcal Vaccine Aged Out No kerri pamela eligible based on patient's age to complete this topic Rotavirus Vaccines Aged Out No longer eligible based on patient's age to complete this topic Insurance [facility] Care Teams Poultry Scientist Relationship Specialty Start Date End Date Regan Crain MD [address] [place] [address] PCP - General 02/27/23
--- OUTSIDE RECORDS SUMMARY | 2024-12-15 14:53 | XMS_ITS | Encounter Summary ---
Author Organization [facility] Address [address] [place] [address] Care Team Providers Care Replenishment Associate Name Role Phone Regan Crain MD Primary Care Provider [phone] Regan Crain MD Primary Care Provider [phone] Encounter Details Date Type Department Care Team (Late st Contact Info) Description 05/09/2023 Clinisync Result Encounter [facility] External Department Unsolicited Provider, Generic External Data Social History Tobacco Use Types Packs/Day Years Used Date Smoking Tobacco: Former Cigarettes Q uit: 2002 Comments Unknown Sex and Gender Information Value Date Recorded Sex Assigned at Not on file Legal Sex Female 6:58 PM EDT Gender Identity Not on file Sexual Orientation Not on file documented as of this encounter Plan of Treatment Upcoming Encounters Date Type Department Care Team (Late st Contact Info) Description 12/18/2024 8:30 AM EDT Ancillary Procedure [facility] [place] [facility] [address] [place] [address] 12/18/2024 9:15 AM EDT Office Visit [facility] [place] [facility] [address] [place] [address] Мария Beck MD [address] [place] [address] documented as of this encounter Procedures Procedure Name Priority Date/Time Associated Diagnosis Comments CA ECHO DOPPLER COMPLETE 05/09/2023 2:32 PM EST documented in this encounter Results * CA ECHO DOPPLER COMPLETE (05/09/2023 2:32 PM EST) Anatomical Region Laterality Modality Other 05/09/2023 2:3 2 PM EST Narrative 05/09/2023 2:33 PM EST [address] [address] Cardiology Report Signed Patient: ADRIANNA CAMARGO MR#: [id number] : 1970 Acct:[id number] Age/Sex: 52 / F ADM Date: 05/08/23 Loc: [place] Attending Dr: RIVAS JENKINS Ordering Physician: RIVAS JENKINS Date of Service: 05/08/23 Procedure(s): CA echo doppler complete Accession Number(s): [id number] cc: RIVAS JENKINS ; Regan Crain M.D. Patient Name: ADRIANNA CAMARGO MR#: [id number] : 1970 Exam Date: 05/08/2023 Ordering Doctor: RIVAS JENKINS ECHOCARDIOGRAM REPORT PROCEDURE: CA ECHO DOPPLER COMPLETE INDICATIONS: Dyspnea, chest pain COMPARISON: None. DESCRIPTION: COMPLETE ECHOCARDIOGRAM Real-time transthoracic echocardiography with 2D, M-mode, spectral and color flow Doppler performed. QUALITY: Technical quality was good. 66 , 195#, BSA 1.98 m2 LEFT VENTRICLE: Normal chamber size. Normal left ventricular wall thickness. LV EF: Normal left ventricular ejection fraction, (>55%). DIASTOLIC: Normal diastolic function. ATRIAL SEPTUM: Visually appears intact. LEFT ATRIUM: Normal chamber size. RIGHT ATRIUM: Normal chamber size. RIGHT VENTRICLE: Normal chamber size. Normal right ventricular systolic function. TRICUSPID VALVE: Normal mobility and thickness. No stenosis with trivial regurgitation. No evidence of pulmonary hypertension.RVSP 25 mmHg MITRAL VALVE: Normal mobility and thickness. No evidence of mitral valve stenosis. There is no mitral annular calcification. Trivial mitral regurgitation. AORTIC VALVE: Normal trileaflet appearance. No visible sclerosis. Normal leaflet mobility. No evidence of aortic valve stenosis. No aortic regurgitation. AORTIC ROOT: Normal diameter and appearance. PULMONIC VALVE: Normal thickness and mobility. No stenosis. Trivial regurgitation. PERICARDIUM: Anterior free space; trivial effusion versus fat pad. IVC: Collapses with inspirations. IVC is normal in size. CONCLUSION: 1. Global left ventricular systolic function is normal; visually estimated ejection fraction is 60 to 65% 2. Normal diastolic function 3. Normal right ventricular size and systolic function 4. No significant valvular abnormalities 5. Anterior free space; trivial effusion versus fat pad Adult Echocardiography Procedure Report Left Ventricle LVEDD (3.7 - 5.6 cm): 4.39 cm LVESD (2.2 - 4.0 cm): 3.22 cm LVIVS thickness (0.6 - 1.2 cm): 0.77 cm LVPW thickness (0.5 - 1.0 cm): 0.88 cm e': 0.11 m/s E - e': 7.22 LVOT Max Gradient: 2.64 mm[Hg], 2.32 mm[Hg] LVOT Area (cm2): 0.79 m/s Peak Velocity (LVOT): 0.81 m/s, 0.76 m/s Mean Velocity (LVOT): 0.61 m/s LVOT Diameter 2.10 cm Left Atrium LA Volume Index (2D A2C): 26.96 ml/m2 Left Atrium Systolic Dimension: 3.45 cm Mitral Valve MV E to A Ratio: 1.02, 1.03 Mitral Valve A-Wave Peak Velocity: 0.76 m/s Mitral Valve E-Wave Peak Velocity: 0.78 m/s Right Ventricle Aorta AO Root Diam: 2.75 cm Ascending Ao Diam: 2.45 cm Aortic Valve AoV Area (Peak Nathaniel): 1.96 cm2, 2.02 cm2 AoV Area (VTI): 2.17 cm2, 2.20 cm2 Peak Velocity(Antegrade Flow): 1.39 m/s Peak Gradient(Antegrade Flow): 7.73 mm[Hg] Mean Velocity(Antegrade Flow): 0.96 m/s Mean Gradient(Antegrade Flow): 4.04 mm[Hg] Velocity Time Integral: 28.01 cm Tricuspid Valve Peak Velocity (Regurgitant Flow): 2.03 m/s, 2.34 m/s, 2.16 m/s Pulmonic Valve Peak Velocity: 0.93 m/s Peak Gradient: 3.26 mm[Hg], 3.68 mm[Hg] Right Atrium Right Atrium Systolic Pressure: 39.59 ml, 39.59 ml Dictated by: Danika Almonte M.D. on 05/09/2023 at 14:30 Approved by: Danika Almonte M.D. on 05/09/2023 at 14:32 Dictated By: Danika Almonte M.D. Signed By: 05/09/231432 DD/ 31 TD/TT: Apprentice Cosmetologist: Procedure Note Radiology, Radiologist, MD - 05/10/2023 [place] [address] Cardiology Report Signed Patient: ADRIANNA CAMARGO EMR#: [id number] : 1970Acct:[id number] Age/Sex: 52 / FADM Date: 05/08/23 Loc: [place] Attending Dr: RIVAS JENKINS Ordering Physician: RIVAS JENKINS Date of Service: 05/08/23 Procedure(s): CA echo doppler complete Accession Number(s): [id number] cc: RIVAS JENKINS ; Regan Crain M.D. Patient Name: ADRIANNA CAMARGO MR#: [id number] : 1970 Exam Date: 05/08/2023 Ordering Doctor: RIVAS JENKINS ECHOCARDIOGRAM REPORT PROCEDURE: CA ECHO DOPPLER COMPLETE INDICATIONS: Dyspnea, chest pain COMPARISON: None. DESCRIPTION: COMPLETE ECHOCARDIOGRAM Real-time transthoracic echocardiography with 2D, M-mode, spectral and color flow Dopplerperformed. QUALITY: Technical quality was good. 66 , 195#, BSA 1.98 m2 LEFT VENTRICLE: Normal chamber size. Normal left ventricular wall thickness. LV EF: Normal left ventricular ejection fraction, (>55%). DIASTOLIC: Normal diastolic function. ATRIAL SEPTUM: Visually appears intact. LEFT ATRIUM: Normal chamber size. RIGHT ATRIUM: Normal chamber size. RIGHT VENTRICLE: Normal chamber size. Normal right ventricularsystolic function. TRICUSPID VALVE: Normal mobility and thickness. No stenosis withtrivial regurgitation. No evidence of pulmonary hypertension.RVSP 25 mmHg MITRAL VALVE: Normal mobility and thickness. No evidence of mitralvalve stenosis. There is no mitral annular calcification. Trivial mitral regurgitation. AORTIC VALVE: Normal trileaflet appearance. No visible sclerosis.Normal leaflet mobility. No evidence of aortic valve stenosis. No aortic regurgitation. AORTIC ROOT: Normal diameter and appearance. PULMONIC VALVE: Normal thickness and mobility. No stenosis. Trivial regurgitation. PERICARDIUM: Anterior free space; trivial effusion versus fat pad. IVC: Collapses with inspirations. IVC is normal in size. CONCLUSION: 1. Global left ventricular systolic function is normal; visually estimated ejection fraction is 60 to 65% 2. Normal diastolic function 3. Normal right ventricular size and systolic function 4. No significant valvular abnormalities 5. Anterior free space; trivial effusion versus fat pad Adult Echocardiography Procedure Report Left Ventricle LVEDD (3.7 - 5.6 cm): 4.39 cm LVESD (2.2 - 4.0 cm): 3.22 cm LVIVS thickness (0.6 - 1.2 cm): 0.77 cm LVPW thickness (0.5 - 1.0 cm): 0.88 cm e': 0.11 m/s E - e': 7.22 LVOT Max Gradient: 2.64 mm[Hg], 2.32 mm[Hg] LVOT Area (cm2): 0.79 m/s Peak Velocity (LVOT): 0.81 m/s, 0.76 m/s Mean Velocity (LVOT): 0.61 m/s LVOT Diameter 2.10 cm Left Atrium LA Volume Index (2D A2C): 26.96 ml/m2 Left Atrium Systolic Dimension: 3.45 cm Mitral Valve MV E to A Ratio: 1.02, 1.03 Mitral Valve A-Wave Peak Velocity: 0.76 m/s Mitral Valve E-Wave Peak Velocity: 0.78 m/s Right Ventricle Aorta AO Root Diam: 2.75 cm Ascending Ao Diam: 2.45 cm Aortic Valve AoV Area (Peak Nathaniel): 1.96 cm2, 2.02 cm2 AoV Area (VTI): 2.17 cm2, 2.20 cm2 Peak Velocity(Antegrade Flow): 1.39 m/s Peak Gradient(Antegrade Flow): 7.73 mm[Hg] Mean Velocity(Antegrade Flow): 0.96 m/s Mean Gradient(Antegrade Flow): 4.04 mm[Hg] Velocity Time Integral: 28.01 cm Tricuspid Valve Peak Velocity (Regurgitant Flow): 2.03 m/s, 2.34 m/s, 2.16 m/s Pulmonic Valve Peak Velocity: 0.93 m/s Peak Gradient: 3.26 mm[Hg], 3.68 mm[Hg] Right Atrium Right Atrium Systolic Pressure: 39.59 ml, 39.59 ml Dictated by: Danika Almonte M.D. on 05/09/2023 at 14:30 Approved by: Danika Almonte M.D. on 05/09/2023 at 14:32 Dictated By: Danika Almonte M.D. Signed By:05/09/231432 DD/ 31 TD/TT: Apprentice Cosmetologist: us Generic External Data Provider [facility] Final Result documented in this encounter Visit Diagnoses Not on filedocumented in this encounter Care Teams Replenishment Associate Relationship Specialty Start Date End Date Regan Crain MD PCP - General Family Medicine 05/21/22 09/25/23 Regan Crain MD [address] [place] [address] PCP - General Family Medicine 09/26/23 documented as of this encounter
--- OUTSIDE RECORDS SUMMARY | 2024-12-15 14:53 | XMS_ITS | Encounter Summary ---
Author Organization [facility] Address [address] [place] [address] Care Team Providers Care Clerical Office Name Role Phone Regan Crain MD Primary Care Provider [phone] Encounter Details Date Type Department Care Team (Late Contact Info) Description 12/10/2024 [facility] [address] [place] [address] Regan Crain MD [address] [place] [address] Social History Tobacco Use Types Packs/Day Years [...] Encounters Date Type Department Care Team (Late Contact Info) Description 12/18/2024 8:30 AM EDT Ancillary Procedure [facility] [address] [place] [phone] 12/18/2024 9:15 AM EDT Office Visit [facility] [address] [place] [address] Мария Beck MD [address] [place] [address] documented as of this encounter Visit Diagnoses Not on filedocumented in this encounter Care Teams Clerical Office Relationship Specialty Start Date End Date Regan Crain MD [address] [place] [address] PCP - General Family Medicine 09/26/23 documented as of this encounter
--- OUTSIDE RECORDS SUMMARY | 2024-12-15 14:53 | XMS_ITS | Encounter Summary ---
Author Organization [facility] Address [address] [place] [address] Care Team Providers Care Sales Property Manager Name Role Phone Regan Crain MD Primary Care Provider [phone] Encounter Details Date Type Department Care Team (Late st Contact Info) Description 2024 Telephone [facility] [place] [facility] [address] [place] [phone] Francisco Portillo MD [address] [place] [address] Social History Tobacco Use Types Packs/Day Years [...] on file documented as of this encounter Miscellaneous Notes * Telephone Encounter - Alberto Franks - 2024 2:41 PM EDT Could not LVM, message states customer not available and to try again later. Per Raysa with [facility] 250.00 deductible has not been met, once deductible has been met they will pay 90% of allowed amt. 65.55 is 10% of allowed amount and 2ndry should pick this up. Patient will need tobring 250.00 to visit documented in this encounter Plan of Treatment Upcoming Encounters Date Type Department Care Team (Late st Contact Info) Description 12/18/2024 8:30 AM EDT Ancillary Procedure [facility] [address] [place] [address] 12/18/2024 9:15 AM EDT Office Visit [facility] [address] [place] [address] Мария Beck MD [address] [place] [address] documented as of this encounter Visit Diagnoses Not on filedocumented in this encounter Care Teams Sales Property Manager Relationship Specialty Start Date End Date Regan Crain MD [address] [place] [address] PCP - General Family Medicine 09/26/23 documented as of this encounter
--- OUTSIDE RECORDS SUMMARY | 2024-12-15 14:53 | XMS_ITS | Encounter Summary ---
Author Organization [facility] Address [address] [place] [address] Care Team Providers Care Stock Broker Name Role Phone Regan Crain MD Primary Care Provider [phone] Encounter Details Date Type Department Care Team (Late Contact Info) Description 01/11/2024 Abstract [facility] [address] [facility] [address] [place] [address] Мария Beck MD [address] [facility] [address] [place] [address] Social History Tobacco Use Types Packs/Day Years [...] Date Recorded Patient Health Questionnaire-2 Score 0 12/17/2023 Comments No Sex and Gender Information Value Date Recorded Sex Assigned at Not on file Legal Sex Female 6:58 PM EDT Gender Identity Not on file Sexual Orientation Not on file documented as of this encounter Plan of Treatment Upcoming Encounters Date Type Department Care Team (Late Contact Info) Description 12/18/2024 8:30 AM EDT Ancillary Procedure [facility] [place] [facility] [address] [place] [address] 12/18/2024 9:15 AM EDT Office Visit [facility] [place] [facility] [address] [place] [phone] Мария Beck MD [address] [place] [address] documented as of this encounter Visit Diagnoses Not on filedocumented in this encounter Care Teams Stock Broker Relationship Specialty Start Date End Date Regan Crain MD [address] [place] [address] PCP - General Family Medicine 09/26/23 documented as of this encounter
--- OUTSIDE RECORDS SUMMARY | 2024-12-15 14:53 | XMS_ITS | Patient Health Record ---
Author Organization [facility] Address [address] [place] [address] Care Team Providers Care Green Marketer Name Role Phone Regan Crain MD Primary Care Provider Ebonie Ruel Machado Unavailable [phone] Allergies No Known Allergies Reason For Referral No Information Medications Medication SIG (Take, Route, Frequency, Duration) Notes Start Date End Date Status Mucinex 600 MG 1 tablet as needed Orally every 12 hrs Not-Taking Albuterol Sulfate HFA 108 (90 Base) MCG/ACT 2 puffs as needed for SOB Inhalation Q4H for 90 days Active Advair HFA 115-21 MCG/ACT 2 puffs Inhalation BID for 90 days Rinse after use Active Social History Tobacco Use: Social History Observation Description Date Details (start date - stop date) Former Smoker NA - NA Tobacco Use/Smoking Question Answer Notes Patient is a former smoker Additional Findings: Tobacco Non-User Ex-heavy c igarette smoker (20-30/day) Tobacco Control (Standard) Question Answer Notes Tobacco use: Former smoker Additional Findings: Tobacco non-user Ex-heavy c igarette smoker (20-30/day) Problems Problem Type SNOMED Code ICD Code Onset Dates Problem Status W/U Status Risk Notes Problem Uncomplicated mild persistent asthma (199897183) Mild persistent asthma, uncomplicated (J45.30) Active confirmed Problem Solitary pulmonary nodule (777743633) Solitary pulmonary nodule (R91.1) Active confirmed Problem 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 (Z79.51) Active confirmed Problem Obesity (644703821) Obesity (E66.9) Active confirmed Problem Obstructive sleep apnea syndrome (58517406) COSTA (obstructive sleep apnea) (G47.33) Active confirmed Problem Hiatal hernia (23858669) Hiatal hernia (K44.9) Active confirmed Problem Hilar lymphadenopathy (13267570) Hilar lymphadenopathy (R59.0) Active confirmed Problem Ex-tobacco user (finding) (000329619) History of tobacco abuse (Z87.891) Active confirmed Problem Dyspnea (114371291) Shortness of breath on exertion (R06.02) Active confirmed Problem Dextroscoliosis (900803151727773) Dextroscoliosis (M41.80) Active confirmed Problem 879039441 Body mass index [BMI] 31.0-31.9, adult (Z68.31) Active confirmed Problem 347396418 Body mass index [BMI] 32.0-32.9, adult (Z68.32) Active confirmed Encounters Encounter Location Date Provider Diagnosis [facility] [address] [place] [address] 12/27/2023 R[facility] [place] [address] [place] [address] 09/01/2024 Ruel [facility]es[facility] Plan Of Treatment No Information Insurance Providers Payer Name Payer Address Payer Phone Subscriber Number Group Number Insured Name Patient Relationship to Insured Coverage Start Date Coverage End Date [facility] [address] [place], [place] [id number] [phone] [id number] Raysa Tejada Self - patient is the insured [facility] [employer] PPO PLUS LOCAL PLAN [address] [place] [address] [id number] Marcelino Tejada Spouse - patient is the spouse of the insured Medical (General) History Medical History History ICD Code Mild persistent asthma, uncomplicated J4 5.30 Obesity E66.9 COSTA (obstructive sleep apnea) G47.33 History of tobacco abuse Z87.891 Hiatal hernia K44.9 Dextroscoliosis M41.80 Solitary pulmonary nodule R91.1 Hilar lymphadenopathy R59.0 Surgical History Surgery Date(Month/Year) wisdom teeth extraction Hospitalization History Reason Date(Month/Year) Parainfluenza Virus-[facility] 10/10/2022
--- OUTSIDE RECORDS SUMMARY | 2024-12-15 14:53 | XMS_ITS | Encounter Summary ---
Author Organization [facility] Address [address] [place] [address] Care Team Providers Care Outreach Representative Name Role Phone Regan Crain MD Primary Care Provider [phone] Regan Crain MD Primary Care Provider [phone] Encounter Details Date Type Department Care Team (Late st Contact Info) Description 05/10/2023 Clinisync Result Encounter [facility] External Department Unsolicited [...] FELIPEN [address] [place] [address] 12/18/2024 9:15 AM EDT Office Visit [facility] [place] [facility] [address] [place] [address] Мария Beck MD [address] [place] [address] documented as of this encounter Procedures Procedure Name Priority Date/Time Associated Diagnosis Comments NM CODEY PERF SPECT REST STR 05/10/2023 8:59 AM EST documented in this encounter Results * NM CODEY PERF SPECT REST STR (05/10/2023 8:59 AM EST) Anatomical Region Laterality Modality Other 05/10/2023 8:59 AM EST Narrative 05/10/2023 9:00 AM EST [address] [address] Nuclear Medicine Report Signed Patient: ADRIANNA CAMARGO MR#: [id number] : 1970 Acct:[id number] Age/Sex: 52 / F ADM Date: 05/08/23 Loc: [place] Attending Dr: RIVAS JENKINS Ordering Physician: RIVAS JENKINS Date of Service: 05/08/23 Procedure(s): NM codey perf SPECT rest str Accession Number(s): [id number] cc: RIVSA JENKINS ; Regan Crain M.D. Patient Name: ADRIANNA CAMARGO MR#: [id number] : 1970 Exam Date: 05/08/2023 Ordering Doctor: RIVAS JENKINS RADIOLOGY REPORT PROCEDURE: NM CODEY PERF SPECT REST STR COMPARISON: None. INDICATIONS: CHEST PAIN TECHNIQUE: Exam Description: Stress/Rest one day protocol gated SPECT Rest Imagin.5 mCi Tc-99m Cardiolite IV on 05/08/2023 Stress Imaging 30.9 mCi Tc-99m Cardiolite IV on 05/08/2023 Exercise Protocol: Aniket Heart Rate (bpm): Rest: 72 Max: 171 PMHR: 100 Blood Pressure: Rest: 138/76 Max: 182/84 Exercise Time: Minutes: 7 Seconds: 07 Stage Reached: Stage: 3 Mets 9.2 Symptoms: Rest and peak stress ECG findings were normal and the exercise portion of the study was normal per attending physician Dr. Sim . For more details please see separate cardiac stress test report. FINDINGS: QUALITY OF STUDY: Excellent. PERFUSION DEFECT: None. LOCATION: N/A SIZE: N/A. SEVERITY: N/A. TYPE: N/A. WALL MOTION: Normal. LV SIZE: Normal. 74 mL. TID / TCD: None; 0.9 LVEF: Normal. Calculated EF 74%. SUMMARY: Myocardial perfusion imaging study is NORMAL. CONCLUSION: 1. Normal nuclear medicine myocardial perfusion scan. Dictated by: Tre Urbano M.D. on 05/10/2023 at 08:56 Approved by: Tre Urbano M.D. on 05/10/2023 at 08:58 Dictated By: Tre Urbano M.D. Signed By: 05/10/23 0900 DD/ 0859 TD/TT: Dimensional Integration Engineer: Procedure Note Radiology, Radiologist, MD - 05/10/2023 [place] [address] Nuclear Medicine Report Signed Patient: ADRIANNA CAMARGO EMR#: [id number] : 1970Acct:[id number] Age/Sex: 52 / FADM Date: 05/08/23 Loc: [place] Attending Dr: RIVAS JENKINS Ordering Physician: RIVAS JENKINS Date of Service: 05/08/23 Procedure(s): NM codey perf SPECT rest str Accession Number(s): [id number] cc: RIVAS JENKINS ; Regan Crain M.D. Patient Name: ADRIANNA CAMARGO MR#: [id number] : 1970 Exam Date: 05/08/2023 Ordering Doctor: RIVAS JENKINS RADIOLOGY REPORT PROCEDURE: NM CODEY PERF SPECT REST STR COMPARISON: None. INDICATIONS: CHEST PAIN TECHNIQUE: Exam Description: Stress/Rest one day protocol gated SPECT Rest Imagin.5 mCi Tc-99m Cardiolite IV on 05/08/2023 Stress Imaging 30.9 mCi Tc-99m Cardiolite IV on 05/08/2023 Exercise Protocol: Aniket Heart Rate (bpm): Rest: 72 Max: 171 PMHR: 100 Blood Pressure: Rest: 138/76 Max: 182/84 Exercise Time: Minutes: 7 Seconds: 07 Stage Reached: Stage: 3 Mets 9.2 Symptoms: Rest and peak stress ECG findings were normal and the exercise portion ofthe study was normal per attending physician Dr. Sim . For more details please see separate cardiac stress test report. FINDINGS: QUALITY OF STUDY: Excellent. PERFUSION DEFECT: None. LOCATION: N/A SIZE: N/A. SEVERITY: N/A. TYPE: N/A. WALL MOTION: Normal. LV SIZE: Normal. 74 mL. TID / TCD: None; 0.9 LVEF: Normal. Calculated EF 74%. SUMMARY: Myocardial perfusion imaging study is NORMAL. CONCLUSION: 1. Normal nuclear medicine myocardial perfusion scan. Dictated by: Tre Urbano M.D. on 05/10/2023 at 08:56 Approved by: Tre Urbano M.D. on 05/10/2023 at 08:58 Dictated By: Tre Urbano M.D. Signed By:05/10/23 0900 DD/ 0859 TD/TT: Dimensional Integration Engineer: us Generic External Data Provider [facility] Final Result documented in this encounter Visit Diagnoses Not on filedocumented in this encounter Care Teams Outreach Representative Relationship Specialty Start Date End Date Regan Crain MD PCP - General Family Medicine 05/21/22 09/25/23 Regan Crain MD [address] [place] [address] PCP - General Family Medicine 09/26/23 documented as of this encounter
--- NOTE | 2024-12-15 15:20 | XR_ITS ---
[place] [address] Patient Name: ADRIANNA CAMARGO MRN: [id number] date: 1970 Sex: F Assigned Patient Location: LAB Current Patient Location: LAB Accession/Order Number: [id number] Exam Date: 12/15/2024 21:04 Report Date: 12/15/2024 21:04 At the request of: MICHELLE PATTERSON MD Procedure: XR lumbar spine 2-3V LUMBAR SPINE - 3 views CLINICAL HISTORY: Lumbar disc herniation with radiculopathy COMPARISON: None FINDINGS: Vertebral body heights appear maintained. Mild endplate and facet joint degenerative changes with mild disc space narrowing L3-S1. XR/XR lumbar spine 2-3V IMPRESSION: MILD DEGENERATIVE DISC DISEASE L3-S1. Impression dictated by: Beltran Vargas Jr., DStarlaOStarla 12/15/2024 9:04 PM [facility]ictation [facility] Electronically authenticated by: [id number] Y Date: 12/15/2024 21:04
[2024-12-15 15:39] LABS: Hematocrit 36.8 % (36.0-48.0); Hemoglobin 12.5 g/dL (12.0-16.0); Immature Granulocytes Abs Auto 0.02 10^3/uL (0.00-0.03); Immature Granulocytes Pct Auto 0.2 % (0.0-0.5); Lymphocytes Absolute Auto 1.9 10^3/uL (1.2-3.8); Mean Corpuscular HGB Conc 34.0 g/dL (29.9-35.2); Mean Corpuscular Hemoglobin 30.3 pg (26.7-34.0); Mean Corpuscular Volume 89.1 fL (81.0-99.0); Platelet Count 435 10^3/uL (150-450); Red Blood Count 4.13 10^6/uL (4.20-5.40); White Blood Count 9.2 10^3/uL (4.0-11.0)
[2024-12-15 16:48] LABS: Alanine Aminotransferase 28 U/L (14-59); Albumin Globulin Ratio 0.9; Albumin Level 3.4 g/dL (3.4-5.0); Alkaline Phosphatase 88 U/L (46-116); Anion Gap 14.3; Aspartate Amino Transferase 20 U/L (15-37); Blood Urea Nitrogen 22.0 mg/dL (7.0-18.0); Calcium 8.6 mg/dL (8.5-10.1); Carbon Dioxide 26.5 mmol/L (21.0-32.0); Chloride 103 mmol/L (98-107); Cholesterol 158 mg/dL (<=200); Estimated GFR (African America >60 (>=60 mL/min/1.73m^2); Estimated GFR (Non-African Ame >60 (>=60 mL/min/1.73m^2); Globulin 3.6 g/dL; Glucose 115 mg/dL (74-106); HDL Cholesterol 62 mg/dL (40-60); Potassium 3.8 mmol/L (3.5-5.1); Sodium 140 mmol/L (136-145); Thyroid Stimulating Hormone 1.077 uIU/mL (0.358-3.740); Total Protein 7.0 g/dL (6.4-8.2); Triglycerides 149 mg/dL (<=150); VLDL CHOLESTEROL 29.8 mg/dL
== END 2024-12-15 14:52 | disposition home or self-care (01) ==
LOC: LAB 14:51
PROVIDERS: PCP Family Medicine; Visit Provider Family Medicine
DX: Z00.00 Encounter for general adult medical examination without abnormal findings (principal); M51.16 Intervertebral disc disorders with radiculopathy, lumbar region; M51.362 Other intervertebral disc degeneration, lumbar region with discogenic back pain and lower extremity pain
CPT/HCPCS: 36415; 72100; 80048; 80061; 80076; 83036; 84443; 85025

== ENCOUNTER 2025-02-24 15:52 | Outpatient (OUT) | payer OTHER, BC, SELFPAY ==
--- OUTSIDE RECORDS SUMMARY | 2024-09-02 10:00 | XMS_ITS ---
Author Organization [facility] [place] Address [address] [place] [address] Care Team Providers Care Flux Mixer Name Role Phone Regan Crain MD Primary Care Provider Unavailab Ruel Machado Unavailable [phone] REASON FOR VISIT 1YEAR-ASTHMA Encounters Encounter Location Date Provider Diagnosis Pulmonary Medicine [place] [address] [place] [address] 09/02/2024 Ruel Nesbitt Plan Of Treatment No Information Progress Notes * Raysa CAMARGO EDOB:1970 ( 54 yo F)Acc No.[id number]:09/02/2024 UNLOCKED PROGRESS NOTE Follow Up Patient: Raysa WARD Provider: Yaw Nesbitt DO :1970 A ge:53 Y S ex:Female Date:09/02/2024 Address:[address] [place], [place] [id number] Pcp:Regan Crain MD Subjective: * Chief Complaints: * 1 . 1YEAR-ASTHMA. * Medical History: Objective: * Vitals: Assessment: Plan: * Treatment: * * Electronic signature of Cassandra Nesbitt DO on 02/24/2025 at 03:57 PM EDT Sign off status: Pending Visit Status: C ANC (Cancelled) * Provider: Yaw Nesbitt DO Date: 0 09/02/2024 Generated for Printi ng/Faxing/eTransmitting on: 1 03:57 PM EDT
--- OUTSIDE RECORDS SUMMARY | 2025-02-24 15:58 | XMS_ITS | Encounter Summary ---
Author Organization [facility] Address [address] [place] [address] Care Team Providers Care Automobile Racer Name Role Phone Regan Crain MD Primary Care Provider Encounter Details Date Type Department Care Team (Late st Contact Info) Description 12/15/2024 Results [facility] [address] [place] [address] Regan Crain MD [address] [place] [address] ALL CBC WITH AUTO DIFF, HMHP LIVER PANEL, ALL BASIC METABOLIC PANEL, Additional followed-up results: 3 Social History Tobacco Use Types Packs/Day Years [...] Care Team (Late st Contact Info) Description 08/04/2025 9:30 AM EDT Ancillary Procedure [facility] [place] [facility] [address] [place] [phone] 08/04/2025 10:15 AM EDT Office Visit [facility] [place] [facility] [address] [place] [address] Мария Beck MD [address] [place] [address] 02/08/2026 9:30 AM EDT Ancillary Procedure [facility] [address] [place] [address] 02/08/2026 10:15 AM EDT Office Visit [facility] [address] [place] [address] Мария Beck MD [address] [place] [address] documented as of this encounter Visit Diagnoses Not on filedocumented in this encounter Care Teams Automobile Racer Relationship Specialty Start Date End Date Regan Crain MD [address] [place] [address] PCP - General Family Medicine 09/26/23 documented as of this encounter
--- OUTSIDE RECORDS SUMMARY | 2025-02-24 15:58 | XMS_ITS | Encounter Summary ---
Author Organization [facility] Address [address] [place] [address] Care Team Providers Care Toll Testboard Worker Name Role Phone Regan Crain MD Primary Care Provider [phone] Encounter Details Date Type Department Care Team ([facility] Contact Info) Description 12/15/2024 Results [facility] [address] [place] [address] Regan Crain MD [address] [place] [address] XR LUMBAR SPINE 2 OR 3V Social History Tobacco Use Types Packs/Day Years [...] Upcoming Encounters Date Type Department Care Team ([facility] st Contact Info) Description 08/04/2025 9:30 AM EDT Ancillary Procedure [facility] [place] [facility] [address] [place] [address] 08/04/2025 10:15 AM EDT Office Visit [facility] [place] [facility] [address] [place] [address] Мария Beck MD [address] [place] [address] 02/08/2026 9:30 AM EDT Ancillary Procedure [facility] [place] [facility] [address] [place] [address] 02/08/2026 10:15 AM EDT Office Visit [facility] [place] [facility] [address] [place] [address] Мария Beck MD [address] [place] [address] documented as of this encounter Visit Diagnoses Not on filedocumented in this encounter Care Teams Toll Testboard Worker Relationship Specialty Start Date End Date Regan Crain MD [address] [place] [address] PCP - General Family Medicine 09/26/23 documented as of this encounter
--- OUTSIDE RECORDS SUMMARY | 2025-02-24 15:58 | XMS_ITS | Encounter Summary ---
Author Organization [facility] Address [address] [place] [address] Care Team Providers Care Maintenance Of Way Superintendent Name Role Phone Regan Crain MD Primary Care Provider [phone] Encounter Details Date Type Department Care Team (Late st Contact Info) Description 02/10/2025 Results Follow-Up [facility] [place] [facility] [address] [facility] [address] [place] [address] Мария Beck MD [address] [facility] [address] [place] [address] IGP, APT HPV,RFX 16/18,45 Social History Tobacco Use Types Packs/Day Years [...] encounter Miscellaneous Notes * Telephone Encounter - Martine Martin - 02/12/2025 5:11 PM EDT Spoke with patient and advised of results, patient voiced understanding * Telephone Encounter - Martine Martin - 02/12/2025 5:11 PM EDT ----- Message from Dr. Мария Beck sent at 02/10/2025 10:39 AM EDT ----- negative ----- Message ----- From: Interface, [facility] Results In Sent: 02/09/2025 7:07 PM EDT To: Мария Beck MD documented in this encounter Plan of Treatment Upcoming Encounters Date Type Department Care Team (Late st Contact Info) Description 08/04/2025 9:30 AM EDT Ancillary Procedure [facility] [place] [facility] [address] [place] [address] 08/04/2025 10:15 AM EDT Office Visit [facility] [place] [facility] [address] [place] [address] Мария Beck MD [address] [place] [address] 02/08/2026 9:30 AM EDT Ancillary Procedure [facility] [place] [facility] [address] [place] [address] 02/08/2026 10:15 AM EDT Office Visit [facility] [place] [facility] [address] [place] [address] Мария Beck MD [address] [place] [address] documented as of this encounter Visit Diagnoses Not on filedocumented in this encounter Care Teams Maintenance Of Way Superintendent Relationship Specialty Start Date End Date Regan Crain MD [address] [place] [address] PCP - General Family Medicine 09/26/23 documented as of this encounter
--- OUTSIDE RECORDS SUMMARY | 2025-02-24 15:58 | XMS_ITS | Patient Health Record ---
Author Organization [facility] [place] Address [address] [place] [address] Care Team Providers Care Fixed Income Director Name Role Phone Regan Crain MD Primary Care Provider Ebonie Ruel Machado Unavailable [phone] Allergies No Known Allergies Reason For Referral No Information Medications Medication SIG (Take, Route, Frequency, Duration) Notes Start Date End Date Status Mucinex 600 MG 1 tablet as needed Orally every 12 hrs Not-Taking Albuterol Sulfate HFA 108 (90 Base) MCG/ACT 2 puffs as needed for SOB Inhalation Q4H; Duration: 90 days Active Advair HFA 115-21 MCG/ACT 2 puffs Inhalation BID; Duration: 90 days Rinse after use Active Social [...] Risk Notes Problem Uncomplicated mild persistent asthma (277910497) Mild persistent asthma, uncomplicated (J45.30) Active confirmed Problem Solitary pulmonary nodule (732282456) Solitary pulmonary nodule (R91.1) Active confirmed Problem Long-term current use of inhaled steroid (583573298) intermediate (current) use of inhaled steroids (Z79.51) Active confirmed Problem Obesity (922160702) Obesity (E66.9) Active confirmed Problem Obstructive sleep apnea syndrome (36157308) COSTA (obstructive sleep apnea) (G47.33) Active confirmed Problem Hiatal hernia (87776573) Hiatal hernia (K44.9) Active confirmed Problem Hilar lymphadenopathy (92352381) Hilar lymphadenopathy (R59.0) Active confirmed Problem Ex-tobacco user (finding) (044782048) History of tobacco abuse (Z87.891) Active confirmed Problem Dyspnea (126316448) Shortness of breath on exertion (R06.02) Active confirmed Problem Dextroscoliosis (797093619891280) Dextroscoliosis (M41.80) Active confirmed Problem Body mass index 30.00 to 34.99 (458397888853273) Body mass index [BMI] 31.0-31.9, adult (Z68.31) Active confirmed Problem Body mass index 30.00 to 34.99 (533659424314433) Body mass index [BMI] 32.0-32.9, adult (Z68.32) Active confirmed Encounters Encounter Location Date Provider Diagnosis Pulmonary Medicine [address] [place] [address] 09/01/2024 Ruel Nesbitt Plan Of Treatment No Information Insurance Providers Payer Name Payer Address Payer Phone Subscriber Number Group Number Insured Name Patient Relationship to Insured Coverage Start Date Coverage End Date [facility] [address] [place], [place] [phone] [id number] Raysa Tejada Self - patient is the insured [facility] ACCESS PPO PLUS LOCAL PLAN [address] [place] [address] [id number] Marcelino Tejada Spouse - patient is the spouse of the insured Medical (General) History Medical History History ICD Code Mild persistent asthma, uncomplicated J4 5.30 Obesity E66.9 COSTA (obstructive sleep apnea) G47.33 History of tobacco abuse Z87.891 Hiatal hernia K44.9 Dextroscoliosis M41.80 Solitary pulmonary nodule R91.1 Hilar lymphadenopathy R59.0 Surgical History Surgery Date(Month/Year) wisdom teeth extraction Hospitalization History Reason Date(Month/Year) Parainfluenza Virus-TB 10/10/2022
--- OUTSIDE RECORDS SUMMARY | 2025-02-24 15:58 | XMS_ITS | Encounter Summary ---
Author Organization [facility] Address [address] [place] [address] Care Team Providers Care Electrical Logging Engineer Name Role Phone Regan Crain MD Primary Care Provider [phone] Regan Crain MD Primary Care Provider [phone] Encounter Details Date Type Department Care Team [...] 9:30 AM EDT Ancillary Procedure [facility] [place] [facility] [address] [place] [address] 08/04/2025 10:15 AM EDT Office Visit [facility] [place] [facility] [address] [place] [address] Мария Beck MD [address] [place] [address] 02/08/2026 9:30 AM EDT Ancillary Procedure [facility] [place] [facility] [address] [place] [address] 02/08/2026 10:15 AM EDT Office Visit [facility] [place] [facility] [address] [place] [address] Мария Beck MD [address] [place] [address] documented as of this encounter Procedures Procedure Name Priority Date/Time Associated Diagnosis Comments NM CODEY PERF SPECT REST STR 05/10/2023 8:59 AM EST documented in this encounter Results * NM CODEY PERF SPECT REST STR (05/10/2023 8:59 AM EST) Anatomical Region Laterality Modality Other 05/10/2023 8:59 AM EST Narrative 05/10/2023 9:00 AM EST [address] [address] Nuclear Medicine Report Signed Patient: ADRIANNA CAMARGO MR#: [id number] : 1970 Acct:[id number] Age/Sex: 52 / F ADM Date: 05/08/23 Loc: [place] Attending Dr: RIVAS JENKINS Ordering Physician: RIVAS JENKINS Date of Service: 05/08/23 Procedure(s): NM codey perf SPECT rest str Accession Number(s): [id number] cc: RIVAS JENKINS ; Regan Crain M.D. Patient Name: ADRIANNA CAMARGO MR#: [id number] : 1970 Exam Date: 05/08/2023 Ordering Doctor: [...] By: Tre Urbano M.D. Signed By: 05/10/23 09 DD/ 0859 TD/TT: Pancake Professional: Procedure Note Radiology, Radiologist, MD - 05/10/2023 [place] [address] Nuclear Medicine Report Signed Patient: ADRIANNA CAMARGO EMR#: [id number] : 1970Acct:[id number] Age/Sex: 52 / FADM Date: 05/08/23 Loc: [place] Attending Dr: RIVAS JENKINS Ordering Physician: RIVAS JENKINS Date of Service: 05/08/23 Procedure(s): NM codey perf SPECT rest str Accession Number(s): [id number] cc: RIVAS JENKINS Marc M.D. Patient Name: ADRIANNA CAMARGO MR#: [id number] : 1970 Exam Date: 05/08/2023 Ordering Doctor: [...] M.D. Signed By:05/10/23 0900 DD/ 0859 TD/TT: Pancake Professional: Generic External Data Provider [facility] Final Result documented in this encounter Visit Diagnoses Not on filedocumented in this encounter Care Teams Electrical Logging Engineer Relationship Specialty Start Date End Date Regan Crain MD PCP - General Family Medicine 05/21/22 09/25/23 Regan Crain MD [address] [place] [address] PCP - General Family Medicine 09/26/23 documented as of this encounter
--- OUTSIDE RECORDS SUMMARY | 2025-02-24 15:58 | XMS_ITS | Encounter Summary ---
Author Organization [facility] Address [address] [place] [address] Care Team Providers Care Sanitation Officer Name Role Phone Regan Crain MD Primary Care Provider [phone] Encounter Details Date Type Department Care Team (Late Contact Info) Description 01/11/2024 Abstract [facility] [place] [facility] [address] [facility] [address] [place] [address] Мария Beck MD [address] [facility] [address] [place] [address] Social History Tobacco Use Types Packs/Day Years [...] Department Care Team (Late Contact Info) Description 08/04/2025 9:30 AM EDT Ancillary Procedure [facility] [place] [facility] [address] [place] [address] 08/04/2025 10:15 AM EDT Office Visit [facility] [place] [facility] [address] [place] [address] Мария Beck MD [address] [place] [address] 02/08/2026 9:30 AM EDT Ancillary Procedure [facility] [place] [facility] [address] [place] [address] 02/08/2026 10:15 AM EDT Office Visit [facility] [place] [facility] [address] [place] [address] Мария Bekc MD [address] [place] [address] documented as of this encounter Visit Diagnoses Not on filedocumented in this encounter Care Teams Sanitation Officer Relationship Specialty Start Date End Date Regan Crain MD [address] [place] [address] PCP - General Family Medicine 09/26/23 documented as of this encounter
--- OUTSIDE RECORDS SUMMARY | 2025-02-24 15:58 | XMS_ITS | Encounter Summary ---
Author Organization [facility] Address [address] [place] [address] Care Team Providers Care Hybrid Powertrain Development Engineer Name Role Phone Regan Crain MD Primary Care Provider [phone] Regan Crain MD Primary Care Provider [phone] Encounter Details Date Type Department Care Team [...] [address] [place] [address] 08/04/2025 10:15 AM EDT Office Visit [facility] [place] [facility] [address] [place] [address] Мария Beck MD [address] [place] [address] 02/08/2026 9:30 AM EDT Ancillary Procedure [facility] [place] [facility] [address] [place] [address] 02/08/2026 10:15 AM EDT Office Visit [facility] [place] [facility] [address] [place] [address] Мария Beck MD [address] [place] [address] documented as of this encounter Procedures Procedure Name Priority Date/Time Associated Diagnosis Comments CA ECHO DOPPLER COMPLETE 05/09/2023 2:32 PM EST documented in this encounter Results * CA ECHO DOPPLER COMPLETE (05/09/2023 2:32 PM EST) Anatomical Region Laterality Modality Other 05/09/2023 2:32 PM EST Narrative 05/09/2023 2:33 PM EST [address] [address] Cardiology Report Signed Patient: ADRIANNA CAMARGO MR#: [id number] : 1970 Acct:[id number] Age/Sex: 52 / F ADM Date: 05/08/23 Loc: [place] Attending Dr: RIVAS JENKINS Ordering Physician: RIVAS JENKINS Date of Service: 05/08/23 Procedure(s): CA echo doppler complete Accession Number(s): [id number] cc: RIVAS JENKINS ; Regan Crain M.D. Patient Name: ADRIANNA CAMARGO MR#: [id number] : 1970 Exam Date: 05/08/2023 Ordering Doctor: [...] M.D. Signed By: 05/09/231432 DD/ 31 TD/TT: Grain Distributor: Procedure Note Radiology, Radiologist, MD - 05/10/2023 [place] [address] Cardiology Report Signed Patient: ADRIANNA CAMARGO EMR#: [id number] : 1970Acct:[id number] Age/Sex: 52 / FADM Date: 05/08/23 Loc: [place] Attending Dr: RIVAS JENKINS Ordering Physician: RIVAS JENKINS Date of Service: 05/08/23 Procedure(s): CA echo doppler complete Accession Number(s): [id number] cc: RIVAS JENKINS Marc M.D. Patient Name: ADRIANNA CAMARGO MR#: [id number] : 1970 Exam Date: 05/08/2023 Ordering Doctor: [...] 14:32 Dictated By: Danika Almonte M.D. Signed By:05/09/23 1433 DD/ 31 TD/TT: Grain Distributor: Generic External Data Provider [facility] Final Result documented in this encounter Visit Diagnoses Not on filedocumented in this encounter Care Teams Hybrid Powertrain Development Engineer Relationship Specialty Start Date End Date Regan Crain MD PCP - General Family Medicine 05/21/22 09/25/23 Regan Crain MD [address] [place] [address] PCP - General Family Medicine 09/26/23 documented as of this encounter
--- OUTSIDE RECORDS SUMMARY | 2025-02-24 15:58 | XMS_ITS | Clinical Summary ---
Author Organization [facility] Address [address] [place] [address] Care Team Providers Care Glass Designer Name Role Phone Regan Crain MD Primary Care Provider [phone] Allergies No known active allergies Medications fluticasone propion-salmeter oL (Advair HFA) 115-21 mcg/actuation inhaler every 12 (twelve) hours. 05/22/2023 Active meclofenamate (Meclomen) 100 mg capsule Take 100 mg by mouth every 6 (six) hours. 07/30/2024 Active Joyeaux 0.1 mg-0.02 mg (21)/iron (7) tablet Take 1 tablet by mouth in the morning. Active albuterol 90 mcg/actuation inhaler Inhale 2 puffs if needed. 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 025 Mild persistent asthma without complication 01/19 Obstructive sleep apnea syndrome 02/04/2025 Solitary pulmonary nodule 02/04/2025 DDD (degenerative disc disease), lumbar 12/11/19 25 Lumbar disc herniation with radiculopathy 2024 Annual physical exam 11/20/2023 Fibrocystic breast changes 09/26/2023 Excessive and frequent menstruation 09/26/2023 Fibroid uterus 09/26/2023 Intermittent asthma without complication 023 Resolved Problems Problem Noted Date Diagnosed Date Resolved Date Hilar lymphadenopathy 02/04/20252024 Encounters Date Type Department Care Team Description 02/04/2025 3:20 PM EDT Office Visit [facility] [address] [place] [phone] Fahad Stewart MD Shortness of breath (Primary Dx); Heart murmur 02/04/2025 Orders Only [facility] [address] [place] [phone] Milagros Ames MA Murmur, heart (Primary Dx) from Last 3 Months Family History Medical History Relation Name Comments Coronary artery disease Mother smoker Mother Relation Name Status Comments Father Alive Mother Social History Tobacco Use Types Packs/Day [...] Information Value Date Recorded Sex Assigned at Female 01/26/2025 4:24 PM EDT Legal Sex Female 1:51 PM EDT Gender Identity Female 01/26/2025 4:24 PM EDT Sexual Orientation Heterosexual or Straight 12/2024 4:24 PM EDT Last Filed Vital Signs Vital Sign Reading Time Taken Comments Blood Pressure 128/83 02/04/2025 3:05 PM EDT Pulse 87 02/04/2025 3:05 PM EDT Temperature - - Respiratory Rate 11 08/20/2023 11:42 AM EDT Oxygen Saturation 97% 02/04/2025 3:05 PM EDT Inhaled Oxygen Concentration - - Weight 92.5 kg (204 lb) 02/04/2025 3:05 PM EDT Height 167.6 cm (5' 6 ) 02/04/2025 3:05 PM EDT Body Mass Index 32.93 02/04/2025 3:05 PM EDT Plan of Treatment Health Maintenance Due [...] Vaccines (1 of 2) 2022 COVID-19 Vaccine (2023-2 5 season) 2025 Influenza Vaccine (#1) 2025 Mammogram 01/31/2026 02/01/2024 [...] patient's age to complete this topic Insurance [facility] Care Teams Glass Designer Relationship Specialty Start Date End Date Regan Crain MD [address] [place] [address] PCP - General 02/27/23
--- OUTSIDE RECORDS SUMMARY | 2025-02-24 15:58 | XMS_ITS | Clinical Summary ---
Author Organization [facility] Address [address] [place] [address] Care Team Providers Care Director [employer] A[employer] Name Role Phone Regan Patterson MD Primary Care Provider [phone] Allergies No known active allergies Medications albuterol HFA 90 mcg/act inhaler Inhale 2 puffs every 4 (four) hours if needed for wheezing. Active Spacer/Aero-Hol ding Chambers (InspiraChamber /Mouthpiece) device Active beclomethasone HFA (Qvar RediHaler) 40 MCG/ACT inhaler Inhale 40 mcg in the morning and 40 mcg before bedtime. Rinse mouth with water after use to reduce aftertaste and incidence of candidiasis. Do not swallow.. Active levalbuterol (Xopenex) 45 MCG/ACT inhaler Inhale 2 puffs every 4 (four) hours if needed for wheezing. Active meclofenamate (Meclomen) 100 MG capsule Take 100 mg by mouth every 6 (six) hours Active Active Problems Problem Noted Date Diagnosed Date Lumbar disc herniation with radiculopathy 2024 Assessment & Plan (12/10/2024 9:24 AM EDT): Mild pain but worsening radicular symptoms. Check x-ray and EMG. Likely will need MRI. DDD (degenerative disc disease), lumbar 12/11/19 Assessment & Plan (12/10/2024 9:24 AM EDT): Mild pain but worsening radicular symptoms. Check x-ray and EMG. Likely will need MRI. Annual physical exam 11/20/2023 Assessment & Plan (12/10/2024 9:24 AM EDT): Due for labs and mammogram. Discussed proper diet and regular aerobic exercise. Need aerobic exercise 5-6 days a week for 30 minutes at a time. Smaller portions and limit total calories. Colonoscopy every 10 years. Tetanus every 10 years. Advised not to smoke. Assessment & Plan (11/20/2023 11:07 AM EDT): Due for labs and mammogram. Discussed proper diet and regular aerobic exercise. Need aerobic exercise 5-6 days a week for 30 minutes at a time. Smaller portions and limit total calories. Never had colon cancer screening and refer for colonoscopy. Tetanus every 10 years. Advised not to smoke. Fibrocystic breast changes 09/26/2023 Fibroid uterus 09/26/2023 Assessment & Plan (12/10/2024 9:24 AM EDT): Check labs and follow with ore buyer. Menorrhagia 09/26/2023 Intermittent asthma without complication 023 Resolved Problems Problem Noted Date Diagnosed Date Resolved Date URTI (acute upper respiratory infection) 09/26/2023 11/20/2023 Encounters Date Type Department Care Team Description 02/10/2025 Results Follow-Up [facility] [address] [place] [phone] Мария Beck MD IGP, APT HPV,RFX 16/18,45 02/04/2025 9:30 AM EDT Office Visit [facility] [address] [place] [phone] Мария Beck MD Encounter for gynecological examination without abnormal finding (Primary Dx); Encounter for screening mammogram for malignant neoplasm of breast; Hormone imbalance; Anemia, unspecified type; Menorrhagia with regular cycle; Atypical endocervical cells on Pap smear; Encounter for screening for cervical cancer 02/04/2025 8:30 AM EDT Ancillary Procedure [facility] [address] [place] [phone] Fibroids; Menorrhagia with regular cycle; Left ovarian cyst 02/04/2025 Travel 01/23/2025 12:00 PM EDT [facility] [address] [place] [phone] Francisco Portillo MD Numbness (Primary Dx); Lumbar radiculopathy; Lateral femoral cutaneous neuropathy, left 01/23/2025 Travel 12/15/2024 Results Follow-Up [facility] [address] [place] [address] Regan Patterson MD XR LUMBAR SPINE 2 OR 3V 12/15/2024 Results Follow-Up [facility] [address] [place] [address] Regan Patterson MD ALL CBC WITH AUTO DIFF, HMHP LIVER PANEL, ALL BASIC METABOLIC PANEL, Additional followed-up results: 3 12/15/2024 Clinisync Result Encounter [facility] External Department Unsolicited Regan Patterson MD 12/15/2024 Clinisync Result Encounter [facility] External Department Unsolicited Regan Patterson MD 2024 Telephone [facility] [phone] [place] [address] Francisco Portillo MD 12/10/2024 8:45 AM EDT Office Visit [facility] [address] [place] [address] Regan Patterson MD Annual physical exam (Primary Dx); Lumbar disc herniation with radiculopathy; Degeneration of intervertebral disc of lumbar region with discogenic back pain and lower extremity pain; Uterine leiomyoma, unspecified location; Numbness; Leg pain, left 12/10/2024 Bamboo flowsheet [facility] [address] [place] [phone] Regan Patterson MD from Last 3 Months Family History Medical History Relation Name Comments No Known Problems Brother No Known Problems Father No Known Problems Mother Relation Name Status Comments Brother Father Mother Social History Tobacco Use Types Packs/Day Years Used Date Smoking Tobacco: Former Cigarettes Q uit: 2002 Passive Smoke Exposure: Past Smokeless Tobacco: Never Tobacco Cessation:Counseling Given: Not [...] Sign Reading Time Taken Comments Blood Pressure 122/76 02/04/2025 9:46 AM EDT Pulse 79 12/10/2024 8:50 AM EDT Temperature 36.2 C (97.1 F) 12/10/2024 8:50 AM EDT Respiratory Rate 20 12/10/2024 8:50 AM EDT Oxygen Saturation 96% 12/10/2024 8:50 AM EDT Inhaled Oxygen Concentration - - Weight 90.7 kg (200 lb) 02/04/2025 9:46 AM EDT Height 167.6 cm (5' 6 ) 02/04/2025 9:46 AM EDT Body Mass Index 32.28 02/04/2025 9:46 AM EDT Plan of Treatment Upcoming Encounters Date Type Department Care Team (Late st Contact Info) Description 08/04/2025 9:30 AM EDT Ancillary Procedure [facility] [address] [place] [address] 08/04/2025 10:15 AM EDT Office Visit [facility] [address] [place] [address] Мария Beck MD [address] [place] [address] 02/08/2026 9:30 AM EDT Ancillary Procedure [facility] [address] [place] [phone] 02/08/2026 10:15 AM EDT Office Visit [facility] [address] [place] [phone] Мария Beck MD [address] [place] [address] Procedures Procedure Name Priority Date/Time Associated Diagnosis Comments US PELVIS TRANSVAGINAL Routine 02/04/2025 9:04 AM EDT Fibroids Menorrhagia with regular cycle Left ovarian cyst IGP, APT HPV,RFX 16/18,45 Routine 02/04/2025 12:00 AM EDT Encounter for gynecological examination without abnormal finding Encounter for screening for cervical cancer XR LUMBAR SPINE 2 OR 3V 12/15/2024 9:04 PM EDT MLR HEMOGLOBIN A1C Routine 12/15/2024 3: 02 PM EDT ALL THYROID STIM HORMONE Routine 12/15/2024 3:02 PM EDT ALL LIPID PROFILE (FASTING) Routine 12/15/2024 3:02 PM EDT ALL BASIC METABOLIC PANEL Routine 12/15/2024 3:02 PM EDT HMHP LIVER PANEL Routine 12/15/2024 3:02 PM EDT ALL CBC WITH AUTO DIFF Routine 12/15/2024 3:02 PM EDT from Last 3 Months Results * US pelvis transvaginal (02/04/2025 9:04 AM EDT) Anatomical Region Laterality Modality Pelvis Ultrasound Study GA Study Date Study CORRIE Working CORRIE (Source) 02/04/2025 Narrative 02/14/2025 11:59 PM EDT Images from the original result were not included. Obstetrics & Gynecology [address] [place] [address] [address] [facility] [address] [address] [place] [address] - - - - - - - - - - - - - - - - - - - - - - - - - - - - - - - - - - - - - - - - - - - - - - - - - - - - - - - - - - - - - - - - - - Pelvic Ultrasound Patient name: Raysa Tejada : 1970 (54 y.o.) Date of exam: 02/04/25 - - - - - - - - - - - - - - - - - - - - - - - - - - - - - - - Indication: menorrhagia with regular cycle, fibroid, adenomyosis Surgical History: none Method: Transvaginal ultrasound examination View: Adequate - - - - - - - - - - - - - - - - - - - - - - - - - - - - - - - Measurements: Uterus: 11 x 7.3 x 6.4 cm Volume: 263 cm Endometrial thickness: 5.2 mm Right ovary: 2.7 x 1.9 x 1.7 cm Volume: 4.6 cm Left ovary: 4.6 x 3.0 x 1.7 cm Volume: 12.0 cm - - - - - - - - - - - - - - - - - - - - - - - - - - - - - - - Findings: Uterus: The uterus is enlarged in size and globular in contour., There are several areas of decreased echogenicity felt to represent fibroids. Position: Anterverted Malformations: none Myometrium: The myometrium has a heterogeneous echotexture that may represent adenomyosis and fibroids. Fibroid(s): There are multiple fibroids visualized with the largest measuring 19 x 19 x 15 cm. Endometrium: The endometrium appears normal in contour and thickness. Polyp(s): no overt polyp(s) Cervix: The cervix appears unremarkable. - - - - - - - - - - - - - - - - - - - - - - - - - - - - - - - Right ovary: Visualized Morphology: normal appearing Cyst(s): no cysts visualized Doppler: power doppler shows ovarian blood profusion Right adnexa: no overt adnexal mass - - - - - - - - - - - - - - - - - - - - - - - - - - - - - - - Left ovary: Visualized Morphology: normal appearing Cyst(s): The left ovary contains a single sonolucent cyst, measuring 1.8 x 1.4 x 1.5 cm. Doppler: power doppler shows ovarian blood profusion Left adnexa: no overt adnexal mass - - - - - - - - - - - - - - - - - - - - - - - - - - - - - - - Cul de Sac: no free fluid - - - - - - - - - - - - - - - - - - - - - - - - - - - - - - - - - - - - - - - - - - - - - - - - - - - - - - - - - - - - - - - - - - Impression: The uterus is enlarged in size and globular in contour. The myometrium has a heterogeneous echotexture that may represent adenomyosis and fibroids. There are several areas of decreased echogenicity felt to represent fibroids. There are multiple fibroids visualized with the largest measuring 19 x 19 x 15 cm. The endometrium appears normal in contour and thickness. The endometrial lining measures 5.2 mm. The right ovary appears normal. The left ovary contains a single sonolucent cyst, measuring 1.8 x 1.4 x 1.5 cm. Today's ultrasound was compared to the previous exam from 02/04/24 and appears essentially unchanged. - - - - - - - - - - - - - - - - - - - - - - - - - - - - - - - - - - - - - - - - - - - - - - - - - - - - - - - - - - - - - - - - - - Ordering/Reading Provider: Мария Beck M.D. Customer Account Representative: Al Fox RDMS us Мария Beck MD IMG US PROCEDURES Final Result * IGP, APT HPV,RFX 16/18,45 (02/04/2025 12:00 AM EDT) Diagnosis: Comment [facility] Comment:NEGATIVE FOR INTRAEP ITHELIAL LESION OR MALIGNANCY. Specimen Adequacy: Comment [facility] Comment: Satisfactory for evaluation. Endocervical and/or squamous metaplastic cells (endocervical component) are present. Clinician Provided ICD10: Comment [facility] Comment: Z01.419 Z12.4 Performed By: Comment [facility] Comment:Chase Malonelo gist (ASCP) Cyto Comments . [facility] Note: Comment [facility] Comment: The Pap smear is a screening test designed to aid in the detection of premalignant and malignant conditions of the uterine cervix. It is not a diagnostic procedure and should not be used as the sole means of detecting cervical cancer. Both false-positive and false-negative reports do occur. Test Methodology: Comment [facility] Comment: This liquid based ThinPrep(R) pap test was screened with the use of an image guided system. HPV Aptima Negative Negative [facility] Comment: This nucleic acid amplification test detects fourteen high-risk HPV types (16,18,31,33,35,39,45,51,52,56,58,59,66,68) without differentiation. Vaginal Fluid 02/04/2025 02/05/2025 Narrative [facility] - 02/09/2025 7:07 PM EDT Performed at: 01 - [address] [id number] Machine Assembler For Puller Over: Pat Ames MD, Phone: [phone] Performed at: 02 - [address] [id number] Machine Assembler For Puller Over: Pat Ames MD, Phone: [phone] Specimen Comment: No. of containers..01 ThinPrep Vial us Мария Beck MD LAB BLOOD ORDERABLES Final Res ult [facility] * XR LUMBAR SPINE 2 OR 3V (12/15/2024 9:04 PM EDT) Anatomical Region Laterality Modality Radiographic Jane ging 12/15/2024 9:04 PM EDT Narrative 12/15/2024 9:07 [place] [address] XRay Report Signed Patient: RAYSA TEJADA MR#: [id number] : 1970 Acct:[id number] Age/Sex: 54 / F ADM Date: 12/15/24 Loc: LAB Attending Dr: Regan Patterson M.D. Ordering Physician: Regan Patterson M.D. Date of Service: 12/15/24 Procedure(s): XR lumbar spine 2-3V Accession Number(s): [id number] cc: Regan Patterson M.D. [place] [address] Patient Name: RAYSA TEJADA MRN: [id number] date: 1970 Sex: F Assigned Patient Location: LAB Current Patient Location: LAB Accession/Order Number: [id number] Exam Date: 12/15/2024 21:04 Report Date: 12/15/2024 21:04 At the request of: REGAN PATTERSON MD Procedure: XR lumbar spine 2-3V LUMBAR SPINE - 3 views CLINICAL HISTORY: Lumbar disc herniation with radiculopathy COMPARISON: None FINDINGS: Vertebral body heights appear maintained. Mild endplate and facet joint degenerative changes with mild disc space narrowing L3-S1. XR/XR lumbar spine 2-3V IMPRESSION: MILD DEGENERATIVE DISC DISEASE L3-S1. Impression dictated by: Delmi Hernandez Jr.OStarla 12/15/2024 9:04 PM Dictation Location: [place] [address] Electronically authenticated by: [id number] Y Date: 12/15/2024 21:04 Dictated By: Beltran Vargas M.D. Signed By: 12/15/242106 DD/ 03 TD/TT: Quarter Supervisor: Procedure Note Radiology, Radiologist, MD - 12/15/[address] [address] XRay Report Signed Patient: RAYSA TEJADA EMR#: [id number] : 1970Acct:[id number] Age/Sex: 54 / FADM Date: 12/15/24 Loc: LAB Attending Dr: Regan Patterson M.D. Ordering Physician: Regan Patterson M.D. Date of Service: 12/15/24 Procedure(s): XR lumbar spine 2-3V Accession Number(s): [id number] cc: Regan Patterson M.D. The [place] [id number] Patient Name: RAYSA TEJADA MRN: [id number] date: 1970 Sex: F Assigned Patient Location: LAB Current Patient Location: LAB Accession/Order Number: [id number] Exam Date: 12/15/2024 21:04 Report Date: 12/15/2024 21:04 At the request of: REGAN PATTERSON MD Procedure: XR lumbar spine 2-3V LUMBAR SPINE - 3 views CLINICAL HISTORY: Lumbar disc herniation with radiculopathy COMPARISON: None FINDINGS: Vertebral body heights appear maintained. Mild endplate andfacet joint degenerative changes with mild disc space narrowing L3-S1. XR/XR lumbar spine 2-3V IMPRESSION: MILD DEGENERATIVE DISC DISEASE L3-S1. Impression dictated by: Beltran Vargas Jr., D.OStarla 12/15/2024 9:04 PM Dictation Location: [place] [address] Electronically authenticated by: [id number] Y Date: 1:04 Dictated By: Beltran Vargas M.D. Signed By:12/15/242106 DD/ 03 TD/TT: Quarter Supervisor: Regan Patterson MD IMG XR PROCEDURES Final Result * MLR HEMOGLOBIN A1C (12/15/2024 3:02 PM EDT) GLYCOHEMOGLOBIN A1C 5.6 4.5 - 6.2 % [facility] Comment: ADA RECOMMENDED LIMIT 4.0 - 6.0 ADA THERAPEUTIC TARGET < 7.0 ACTION SUGGESTED > 7.0 ESTIMATED AVERAGE GLUCOSE 114 mg/dL [facility] 12/15/2024 3:02 PM EDT 12/15/2024 3:03 PM EDT Narrative [facility] - 12/15/2024 5:35 PM EDT Regan HIDALGO Final Result Performing Organization Address [facility] Co de Phone Number [facility] * [facility] LIVER PANEL (12/15/2024 3:02 PM EDT) BILIRUBIN TOTAL 0.2 0.2 - 1.0 mg/dL [facility] BILIRUBIN DIRECT <0.1 0.0 - 0.2 mg/dL [facility] ASPARTATE AMINO TRANSFERASE 20 15 - 37 U/L [facility] ALANINE AMINOTRANSFERASE 28 14 - 59 U/L [facility] ALKALINE PHOSPHATASE 88 46 - 116 U/L [facility] TOTAL PROTEIN 7.0 6.4 - 8.2 g/dL [facility] ALBUMIN LEVEL 3.4 3.4 - 5.0 g/dL [facility] GLOBULIN 3.6 g/dL [facility] ALBUMIN GLOBULIN RATIO 0.9 [facility] 12/15/2024 3:02 PM EDT 12/15/2024 3:03 PM EDT Narrative [facility] - 12/15/2024 5:03 PM EDT Regan HIDALGO Final Result Performing Organization Address [facility] Co de Phone Number [facility] * ALL THYROID STIM HORMONE (12/15/2024 3:02 PM EDT) THYROID STIMULATING HORMONE 1.077 0.358 - 3.740 uIU/mL [facility] 12/15/2024 3:02 PM EDT 12/15/2024 3:03 PM EDT Narrative [facility] - 12/15/2024 5:03 PM EDT Regan SULLIVANISYNEIDA Final Result Performing Organization Address [facility] Co de Phone Number [facility] * (ABNORMAL) ALL LIPID PROFILE (FASTING) (12/15/2024 3:02 PM EDT) TRIGLYCERIDES 149 <=150 mg/dL [facility] CHOLESTEROL 158 <=200 mg/dL TB HDL CHOLESTEROL 62(H) 40 - 60 mg/dL TB Comment: > or =60 mg/dl - LOW CARDIOVASCULAR RISK <40 mg/dl - HIGH CARDIOVASCULAR RISK LDL CHOLESTEROL CALCULATED 67.0 mg/dL TB Comment: <100 mg/dl OPTIMAL 100-129 mg/dl NEAR OR ABOVE OPTIMAL 130-159 mg/dl BORDERLINE HIGH 160-189 mg/dl HIGH >190 mg/dl VERY HIGH VLDL CHOLESTEROL 29.8 mg/dL TB CHOL HDL RATIO 2.5 TB Comment: 3.3 - 4.4 LOW RISK 4.4 - 7.1 AVERAGE RISK 7.1 - 11.0 MODERATE RISK >11.0 HIGH RISK 12/15/2024 3:02 PM EDT 12/15/2024 3:03 PM EDT Narrative [facility] - 12/15/2024 5:03 PM EDT Regan HIDALGO Final Result Performing Organization Address [facility] de Phone Number [facility] * (ABNORMAL) ALL CBC WITH AUTO DIFF (12/15/2024 3:02 PM EDT) TB WBC 9.2 4.0 - 11.0 10 3/uL TB[facility] TBH RBC 4.13(L) 4.20 - 5.40 10 6/uL TBH TBH HGB 12.5 12.0 - 16.0 g/dL TB TBH HCT 36.8 36.0 - 48.0 % TBH TBH MCV 89.1 81.0 - 99.0 fL TBH TBH MCH 30.3 26.7 - 34.0 pg TBH TBH MCHC 34.0 29.9 - 35.2 g/dL TBH TBH RDW 12.7 11.0 - 15.0 % TBH TBH PLT 435 150 - 450 10 3/uL TBH TBH MPV 8.8(L) 9.5 - 13.5 fL [facility]H NEUTROPHILS PERCENT AUTO 71.6 43.0 - 75.0 % [facility] LYMPHOCYTES PERCENT AUTO 20.9 20.5 - 60.0 % [facility] MONOCYTES PERCENT AUTO 5.3 1.7 - 12.0 % [facility] TBH EO % 1.6 0.9 - 7.0 % [facility] BASOPHILS PERCENT AUTO 0.4 0.2 - 2.0 % [facility] IMMATURE GRANULOCYTES PCT AUTO 0.2 0.0 - 0.5 % [facility] NEUTROPHILS ABSOLUTE AUTO 6.6(H) 1.4 - 6.5 10 3/uL [facility] LYMPHOCYTES ABSOLUTE AUTO 1.9 1.2 - 3.8 10 3/uL TB[facility] MONOCYTES ABSOLUTE AUTO 0.5 0.3 - 0.8 10 3/uL TBH TBH EO # 0.2 0.0 - 0.7 10 3/uL TBH BASOPHILS ABSOLUTE AUTO 0.0 0.0 - 0.1 10 3/uL [facility] IMMATURE GRANULOCYTES ABS AUTO 0.02 0.00 - 0.03 10 3/uL [facility] 12/15/2024 3:02 PM EDT 12/15/2024 3:03 PM EDT Narrative [facility] - 12/15/2024 3:46 PM EDT Regan Patterson MD [facility] Final Result [facility] * (ABNORMAL) ALL BASIC METABOLIC PANEL (12/15/2024 3:02 PM EDT) SODIUM 140 136 - 145 mmol/L [facility] POTASSIUM 3.8 3.5 - 5.1 mmol/L [facility] CHLORIDE 103 98 - 107 mmol/L TBH CARBON DIOXIDE 26.5 21.0 - 32.0 mmol/L TBH ANION GAP 14.3 TBH GLUCOSE 115(H) 74 - 106 mg/dL [facility] BLOOD UREA NITROGEN 22.0(H) 7.0 - 18.0 mg/dL [facility] CREATININE 0.83 0.55 - 1.02 mg/dL TBH TBH EGFR-AF ISRAELI >60 >=60 mL/min/1.7 3m 2 TBH TBH EGFR-NON AF ISRAELI >60 >=60 mL/min/1.7 3m 2 TBH BUN CREATININE RATIO 26.5 TBH CALCIUM 8.6 8.5 - 10.1 mg/dL [facility] 12/15/2024 3:02 PM EDT 12/15/2024 3:03 PM EDT Narrative [facility] - 12/15/2024 5:03 PM EDT Regan Patterson MD CLINIS[facility]NC Final Result [facility] from Last 3 Months Insurance [facility] Care Teams Director [employer] Relationship Specialty Start Date End Date Regan Patterson MD [address] [place] [address] PCP - General Family Medicine 09/26/23
--- OUTSIDE RECORDS SUMMARY | 2025-02-24 15:59 | XMS_ITS | CCD ---
Author Organization [facility] Care Team Providers Care [employer] Sales Representative Name Role Phone YESENIA, DR REGAN Schafer Primary Care Unavailable OCTAVIANO, DR JUNG Bingham Consulting Unavailable SHAIKH Luis RODRIGUEZ Admitting Unavailable SHAIKH Luis RODRIGUEZ Attending Unavailable MARKER ., DR SULLIVAN Consulting Unavailable FAWSHAIKH Luis PACK Consulting Unavailable KNABE, PEGGY Consulting Unavailable SISTER, GWENDOLYN Consulting Unavailable YESENIA, DR REGAN Schafer Primary Care Unavailable NADEREOtilia, DR REGAN Schafer Consulting Unavailable YESENIA, DR REGAN Schafer Attending Unavailable NADWILMAN, DR REGAN Schafer Admitting Unavailable NADEREOtilia, DR REGAN Schafer Primary Care Unavailable NADEREOtilia, DR REGAN Schafer Consulting Unavailable NADEREOtilia, DR REGAN Schafer Attending Unavailable NADERER, DR REGAN Schafer Admitting Unavailable Shannon Peñaloza Unavailable Marycarmen Jean Unavailable LyDO Charley Attending Provider [phone] NON STAFF Primary Care Provider Unavailvioleta e Mya PathakCharley L Attending Unavailable Ly Charley L Admitting Unavailable NON STAFF Primary Care Unavailable Regan Patterson MD Primary Care Provider [phone] Regan Patterson MD Primary Care Provider [phone] Regan Patterson MD Primary Care Provider REGAN PATTERSON Attending Unavailable BREE PORTILLO Attending Unavailable REGAN PATTERSON Referring Unavailable CHICO JERONIMO Attending Unavailable TRELL VASQUEZ Attending Unavailable Medications Current Medications Medication Drug Class(es) Dates Sig (Normalized) Sig (Original) Albuterol (12 sources) beta2-Adrenergic Agonist Start: 01-29-2024 take 90 ug by inhalation every six hours Albuterol Active 90 MCG INHALATION Every 6 hours January 29, 2024 12:00am take 2 puff(s) by in halation every four hours for wheezing albuterol HFA 90 mcg/act inhaler Inhale 2 puffs every 4 (four) hours if needed for wheezing. Active breath-actuated 120 actuat beclomethasone dipropionate 0.04 mg/actuat metered dose inhaler (11 sources) Corticosteroid beclomethasone H FA (Qvar RediHaler) 40 MCG/ACT inhaler Inhale 40 mcg in the morning and 40 mcg before bedtime. Rinse mouth with water after use to reduce aftertaste and incidence of candidiasis. Do not swallow.. Active Ethinyl Estradiol / Levonorgestrel (5 sources) Progestin, Estrogen, Progestin-containing Intrauterine Device Start: End: 025 take 0.1-20 tablets by mouth once daily Levonorgest-Eth Estradiol-Iron (Balcoltra) 0.1-20 MG-MCG(21) tablet Indications: Menorrhagia with regular cycle Take 1 tablet by mouth Daily 28 tablet 11 02/24/2024 12/10/2024 Discontinued Start: 02-24-2024 take 0.1-20 tablets by mouth once daily Levonorgest-Eth Estradiol-Iron (Balcoltra) 0.1-20 MG-MCG(21) tablet Indications: Menorrhagia with regular cycle Take 1 tablet by mouth Daily 28 tablet 11 02/24/2024 Active Fluticasone Propion-Salmeterol (1 source) Corticosteroid, beta2-Adrenergic Agonist Start: 01-29-2024 Fluticasone Propion-Salmeterol (Advair Hfa) 115-21 mcg/actuation HFA aerosol inhaler Active 2 INH INHALATION Twice daily January 29, 2024 12:00am 200 actuat levalbuterol 0.045 mg/actuat metered dose inhaler (11 sources) beta2-Adrenergic Agonist take 2 puff(s) by inhalation every four hours for wheezing levalbuterol (Xopenex) 45 MCG/ACT inhaler Inhale 2 puffs every 4 (four) hours if needed for wheezing. Active meclofenamate 100 mg oral capsule (8 sources) Start: 07-30-2024 take 1 capsule by mouth every six hours meclofenamate (Meclomen) 100 MG capsule Take 100 mg by mouth every 6 (six) hours 07/30/2024 Active Multivitamin (Daily Value) tablet (1 source) Start: 01-29-2024 take 1 tablet by mouth once daily Multivitamin (Daily Value) tablet Active 1 TAB PO Daily January 29, 2024 12:00am Spacer/Aero-Holding Chambers (InspiraChamber/Mouth piece) device (11 sources) Spacer/Aero-Hold ing Chambers (InspiraChamber/Mout hpiece) device Active Completed/Discontinued Medications Medication Drug Class(es) Dates Sig (Normalized) Sig (Original) azithromycin 250 mg oral tablet (2 sources) Macrolide Antimicrobial Start: 03-05-2023 Azithromycin 250 MG 2 tablet on the first day, then 1 tablet daily for 4 days Orally Once a day for 5 day(s) Feb, Not-Taking/PRN Problems Active Problems Problem Classification Problem Date Documented Date Episodic/Chronic Asthma (12 sources) Unspecified asthma with (acute) exacerbation; Translations: [Intermittent asthma] Onset: 10-13-2022 04-16-2023 Chronic Bacterial infection; unspecified site (1 source) Other staphylococcus as the cause of diseases classified elsewhere; Translations: [OTH STAPH CAUSE OF DZ CLASS ELSW] Onset: 10-13-2022 Episodic Chronic obstructive pulmonary disease and bronchiectasis (1 source) Bronchitis, not specified as acute or chronic Episodic Deficiency and other anemia (2 sources) Anemia; Translations: [Anemia, unspecified] 02-03-2025 Episodic Heart valve disorders (2 sources) Cardiac murmur, unspecified; Translations: [Cardiac murmur, unspecified] Onset: 02-04-2025 Episodic Menstrual disorders (18 sources) Menorrhagia; Translations: [Excessive and frequent menstruation with regular cycle] Onset: 09-26-2023 02-04-2024 Chronic Nonmalignant breast conditions (11 sources) Fibrocystic disease of breast; Translations: [Diffuse cystic mastopathy of unspecified breast] Onset: 09-26-2023 09-26-2023 Chronic Other connective tissue disease (4 sources) Pain in left lower limb; Translations: [Pain in left leg] 12-10-2024 Episodic Other endocrine disorders (2 sources) Disorder of endocrine system; Translations: [Endocrine disorder, unspecified] 02-03-2025 Episodic Other lower respiratory disease (1 source) Solitary pulmonary nodule; Translations: [SOLITARY PULMONARY NODULE] Onset: 10-13-2022 Episodic Other lower respiratory disease (6 sources) Shortness of breath; Translations: [SHORTNESS OF BREATH] Onset: 04-10-2022 Episodic Other nervous system disorders (1 source) Left leg peripheral neuropathy; Translations: [Meralgia paresthetica, left lower limb] 01-23-2025 Chronic Other nervous system disorders (5 sources) Numbness; Translations: [Anesthesia of skin] 12-10-2024 Episodic Other screening for suspected conditions (not mental disorders or infectious disease) (10 sources) Other specified abnormal findings of blood chemistry; Translations: [Encounter for screening for malignant neoplasm of colon] Onset: 10-13-2022 02-04-2024 Episodic Residual codes; unclassified (1 source) Obstructive [...] [ACUTE RESPIRATORY FAIL W/HYPOXIA] Onset: 10-13-2022 Episodic Spondylosis; intervertebral disc disorders; other back problems (10 sources) Degeneration of lumbar intervertebral disc; Translations: [Degeneration of intervertebral disc of lumbar region with discogenic back pain and lower extremity pain] Onset: 12-10-2024 12-10-2024 Chronic Spondylosis; intervertebral disc disorders; other back problems (13 sources) Lumbar disc prolapse with radiculopathy; Translations: [Intervertebral disc disorders with radiculopathy, lumbar region] Onset: 12-10-2024 12-10-2024 Episodic Unclassified (1 source) CONTACT W/AND (SUSP) EXPOS COVID-19; Translations: [CONTACT W/AND (SUSP) EXPOS COVID-19] Onset: 10-13-2022 Viral infection (3 sources) Other viral infections of unspecified site; Translations: [OTHER VIRAL INFECTIONS OF UNS SITE] Onset: 10-11-2022 Episodic Past or Other Problems Problem Classification Problem Date Documented Da te Episodic/Chronic Benign neoplasm of uterus (10 sources) Uterine leiomyoma; Translations: [Leiomyoma of uterus, unspecified] Onset: 09-26-2023 12-10-2024 Episodic Cardiac dysrhythmias (1 source) Palpitations; Translations: [PALPITATIONS] Onset: 04-15-2022 Episodic Malaise and fatigue (5 sources) Other fatigue; Translations: [OTHER FATIGUE] Onset: 03-09-2022 Episodic Other upper respiratory infections (11 sources) Acute upper respiratory infection; Translations: [Acute upper respiratory infection, unspecified] Onset: 09-26-2023 Resolved: 11-20-2023 11-20-2023 Episodic Residual codes; unclassified (1 source) Localized edema; Translations: [LOCALIZED EDEMA] Onset: 04-15-2022 Episodic Results Test Name Value Interpretation Reference Range Facility Office Visiton 02-04-2025 Follow-up visit [id number] Raysa Tejada 1970 F Date Provider Department Center 02/04/2025 [facility]TRELL VASQUEZ [facility] Family History Problem Relation Age of Onset Other Mother Coronary artery disease Mother Family Status - Relation Status Age at Mother Father Alive Level of Service:07312 [place] OFFICE/OUTPATIENT ESTABLISHED LOW MDM 20 MIN Reason for Visit and Comments: Follow-up [216047] - Patient is here today for a 1.5 year routine follow up. Patient states she still has SOB with walking and going upstairs along with dizziness. Shortness of Breath [600464] QUICK [Other] Asthma [148] Normal [facility] ALL CBC WITH AUTO DIFFon BASOPHILS ABSOLUTE AUTO 0 [facility] Basophils/100 WBC (Bld) 0.4 % 0.2 - 2.0 % [facility] Eosinophils/100 WBC (Bld) 1.6 % 0.9 - 7.0 % [facility] Erythrocyte distribution width (RBC) [Ratio] 12.7 % 11.0 - 15.0 % [facility] Hematocrit (Bld) [Volume fraction] 36.8 % 36.0 - 48.0 % [facility] Hemoglobin (Bld) [Mass/Vol] 12.5 g/dL 12.0 - 16.0 g/dL [facility] IMMATURE GRANULOCYTES ABS AUTO 0.02 [facility] Immature granulocytes/100 WBC (Bld) 0.2 % 0.0 - 0.5 % [facility] Interpretation and review of laboratory results Abnormal [facility] LYMPHOCYTES ABSOLUTE AUTO 1.9 [facility] Lymphocytes/100 WBC (Bld) 20.9 % 20.5 - 60.0 % [facility] MCH (RBC) [Entitic mass] 30.3 pg 26.7 - 34.0 pg [facility] MCHC (RBC) [Mass/Vol] 34 g/dL 29.9 - 35.2 g/dL [facility] MCV (RBC) [Entitic vol] 89.1 fL 81.0 - 99.0 fL [facility] MONOCYTES ABSOLUTE AUTO 0.5 [facility] Monocytes/100 WBC (Bld) 5.3 % 1.7 - 12.0 % [facility] NEUTROPHILS ABSOLUTE AUTO 6.6 High [facility] Neutrophils/100 WBC (Bld) 71.6 % 43.0 - 75.0 % [facility] Platelet mean volume (Bld) [Entitic vol] 8.8 fL Low 9.5 - 13.5 fL [facility] EO # 0.2 [facility] PLT 435 [facility] RBC 4.13 Low [facility] WBC 9.2 [facility] XR LUMBAR SPINE 2 OR 3Von [address] [address] XRay Report Signed Patient: RAYSA TEJADA MR#: [id number] : 1970 Acct:[id number] Age/Sex: 54 / F ADM Date: 12/15/24 Loc: LAB Attending Dr: Regan Patterson M.D. Ordering Physician: Regan Patterson M.D. Date of Service: 12/15/24 Procedure(s): XR lumbar spine 2-3V Accession Number(s): [id number] cc: Regan Patterson M.D. [address] [address] Patient Name: RAYSA TEJADA MRN: [id number] date: 1970 Sex: F Assigned Patient Location: LAB Current Patient Location: LAB Accession/Order Number: [id number] Exam Date: 12/15/2024 21:04 Report Date: 12/15/2024 [...] Jr., D.OStarla 12/15/2024 9:04 PM Dictation Location: [place] [address] Electronically authenticated by: [id number] Y Date: 12/15/2024 21:04 Dictated By: Beltran Vargas M.D. Signed By: 12/15/242106 DD/ 03 TD/TT: Senior Quality Analyst: [facility] Radiology, Radiologist, - 12/15/2024 [place] [address] XRay Report Signed Patient: RAYSA TEJADA MR#: [id number] : 1970 Acct:[id number] Age/Sex: 54 / F ADM Date: 12/15/24 Loc: LAB Attending Dr: Regan Patterson M.D. Ordering Physician: Regan Patterson M.D. Date of Service: 12/15/24 Procedure(s): XR lumbar spine 2-3V Accession Number(s): [id number] cc: Regan Patterson M.D. The [address] [address] Patient Name: RAYSA TEJADA MRN: [facility]:[id number] date: 1970 Sex: F Assigned Patient Location: LAB Current Patient Location: LAB Accession/Order Number: [id number] Exam Date: 12/15/2024 21:04 Report Date: 12/15/2024 [...] L3-S1. Impression dictated by: Beltran Vargas Jr., D.O. 12/15/2024 9:04 PM Dictation Location: [place] [address] Electronically authenticated by: [id number] Y Date: 12/15/2024 21:04 Dictated By: Beltran Vargas M.D. Signed By: 12/15/242106 DD/ 03 TD/TT: Senior Quality Analyst: [facility] Radiology Study observation (narrative) [facility] XR LUMBAR SPINE 2 OR 3VOrder ed By: Radiologist Radiology on 12-15-2024 [facility] Work Phone: Choriogonadotropin.beta subu nit [Units/volume] in Serum or PlasmaOrdered By: Charley Pathak on 02-11-2024 HCG.beta subunit Qn Negative [facility] HCG,Qualitative Serumon 01-20 HCG,Qualitative Serum Negative Normal [facility] Comment on above: Result Comment: PERF ORMED BY: [place] [address] PATHOLOGIST SHINGLE [employer]AVER SHANNAN TANNER M.D. Performed By: #### H CGQUAL #### [address] Francisco Javier 02-11-2024 L Specimen: [id number] Received: 02/11/24 Status: DONAVAN [place] Num: [id number] Spec Type: Surgical Subm Dr: Charley Pathak DO Tissues: A Colon Biopsy (ASCENDING COLON POLYP) Procedures: HE/2, Gross/Micro L4 Age/ Patient Sex Location Account Attending Physician Raysa Tejada 53/F [id number] Charley Pathak DO SPEC NUM: [id number] RECD: 02/11/24 STATUS: DONAVAN [place] NUM: [id number] RAI: 02/11/[address]: Charley Pathak DO ENTERED: 02/11/24-140 [facility] DR: SPEC TYPE: Surgical DEPT: S ENTERED BY: [id number] [facility] BY: [id number] ORDERED: VIOLET Gross/Micro L4 ORDERED: JOANGaye Gross/Micro L4 Pathological Diagnosis Ascending colon polyp: Tubular adenoma Clinical Information Screening Gross Description The specimen was received in formalin with the patient's name and ascending colon polyp and consists of a single portion of soft tissue measuring 0.5 cm in greatest dimension. The specimen is entirely submitted in cassette A1. CPT Codes 96262 Specimen: [id number] Received: 02/11/24 Status: DONAVAN Saeed Num: [id number] Spec Type: Surgical Subm Dr: Charley Pathak DO Tissues: A Colon Biopsy (ASCENDING COLON POLYP) Procedures: VIOLET Gross/Micro L4 Patient: Raysa Tejada [id number] (Continued) Signed (signature on file) Ike Canales MD 02/14/24 0943 Normal [facility] CULTURE BLOODon 10-15-2022 Microscopic examination of blood, [...] C Trimethoprim/Sulfame thoxazole <=10 S C Normal [facility] Comment on above: Performed By: #### B MP #### [facility] [address] [place] [address] Dr. Abril Richmond CBC AUTO DIFFon 10-12-2022 BASO # 0.0 103/ul Normal 0.0-0.1 [facility] Comment on above: Performed By: #### B MP #### [facility] [address] [place] [address] [address] Abril Richmond Basophils/100 WBC (Bld) 0.2 % Normal 0.2-2.0 [facility] Comment on above: Performed By: #### B MP #### [facility] [address] [place] [address] [address] Abril Richmond EO # 0.0 103/ul Normal 0.0-0.7 [facility] Comment on above: Performed By: #### B MP #### [facility] [address] [place] [address] Dr. Abril Richmond Eosinophils/100 WBC (Bld) 0.1 % Critically low 0.9-7.0 [facility] Comment on above: Performed By: #### B MP #### [facility] [address] [place] [address] Dr. Abril Richmond Erythrocyte distribution width (RBC) [Ratio] 13.0 % Normal 11.0-15.0 [facility] Comment on above: Performed By: #### B MP #### [facility] [address] [place] [address] Dr. Abril Richmond Hematocrit (Bld) [Volume fraction] 33.6 % Critically low 36.0-48.0 [facility] Comment on above: Performed By: #### B MP #### [facility] [address] [place] [address] Dr. Abril Richmond Hemoglobin (Bld) [Mass/Vol] 10.9 g/dL Critically low 12.0-16.0 [facility] Comment on above: Performed By: #### B MP #### [facility] [address] [place] [address] Dr. Abril Richmond IG # 0.18 10e3/ul Critically high 0.00-0.03 [facility] Comment on above: Performed By: #### B MP #### [facility] [address] [place] [address] Dr. Abril Richmond IG % 1.4 % Critically high 0.0-0.5 [facility] Comment on above: Performed By: #### B MP #### [facility] [address] [place] [address] Dr. Abril Richmond LYMPH # 0.6 103/ul Critically low 1.2-3.8 [facility] Comment on above: Performed By: #### B MP #### [facility] [address] [place] [address] Dr. Abril Richmond Lymphocytes/100 WBC (Bld) 4.6 % Critically low 20.5-60.0 [facility] Comment on above: Performed By: #### B MP #### [facility] [address] [place] [address] Dr. Abril Richmond MANUAL DIFF REQ NO Normal [facility] Comment on above: Performed By: #### B MP #### [facility] [address] [place] [address] Dr. Abril Richmond MCH (RBC) [Entitic mass] 29.1 pg Normal 26.7-34.0 [facility] Comment on above: Performed By: #### B MP #### [facility] [address] [place] [address] Dr. Abril Richmond MCHC (RBC) [Mass/Vol] 32.4 g/dL Normal 29.9-35.2 [facility] Comment on above: Performed By: #### B MP #### [facility] [address] [place] [address] Dr. Abril Richmond MCV (RBC) [Entitic vol] 89.8 fL Normal 81.0-99.0 [facility] Comment on above: Performed By: #### B MP #### [facility] [address] [place] [address] Dr. Abril Richmond MONO # 0.5 103/ul Normal 0.3-0.8 [facility] Comment on above: Performed By: #### B MP #### [facility] [address] [place] [address] Dr. Abril Richmond Monocytes/100 WBC (Bld) 3.7 % Normal 1.7-12.0 [facility] Comment on above: Performed By: #### B MP #### [facility] [address] [place] [address] [address] Abril Richmond NEUT # 12.0 103/ul Critically high 1.4-6.5 [facility] Comment on above: Performed By: #### B MP #### [facility] [address] [place] [address] [address] Abril Richmond Neutrophils/100 WBC (Bld) 90.0 % Critically high 43.0-75.0 [facility] Comment on above: Performed By: #### B MP #### [facility] [address] [place] [address] Dr. Abril Richmond Platelet mean volume (Bld) [Entitic vol] 8.6 fL Critically low 9.5-13.5 [facility] Comment on above: Performed By: #### B MP #### [facility] [address] [place] [address] Dr. Abril Richmond PLT 334 103/ul Normal 150-450 [facility] Comment on above: Performed By: #### B MP #### [facility] [address] [place] [address] Dr. Abril Richmond RBC 3.74 106/ul Critically low 4.20-5.40 [facility] Comment on above: Performed By: #### B MP #### [facility] [address] [place] [address] Dr. Abril Richmond WBC 13.3 103/ul Critically high 4.0-11.0 [facility] Comment on above: Performed By: #### B MP #### [facility] [address] [place] [address] Dr. Abril Richmond PROF CHEM 8 (BAS METB)on Anion gap [Moles/Vol] 11.4 mmol/L Normal [facility] Comment on above: Performed By: #### B MP #### [facility] [address] [place] [address] Dr. Abril Richmond Calcium [Mass/Vol] 8.4 mg/dL Critically low 8.5-10.1 [facility] Comment on above: Performed By: #### B MP #### [facility] [address] [place] [address] Dr. Abril Richmond Chloride [Moles/Vol] 105 mmol/L Normal 98-107 [facility] Comment on above: Performed By: #### B MP #### [facility] [address] [place] [address] [address] Abril Richmond CO2 [Moles/Vol] 28.5 mmol/L Normal 21.0-32.0 [facility] Comment on above: Performed By: #### B MP #### [facility] [address] [place] [address] Dr. Abril Richmond Creatinine [Mass/Vol] 0.81 mg/dL Normal 0.55-1.02 [facility] Comment on above: Performed By: #### B MP #### [facility] [address] [place] [address] [address] Abril Richmond EGFR-AF ECUADOREAN >60 Normal >=60 [facility] Comment on above: Performed By: #### B MP #### [facility] [address] [place] [address] Dr. Abril Richmond EGFR-NON AF ECUADOREAN >60 Normal >=60 [facility] Comment on above: Performed By: #### B MP #### [facility] [address] [place] [address] [address] Abril Richmond Glucose [Mass/Vol] 160 mg/dL Critically high 74-106 [facility] Comment on above: Performed By: #### B MP #### [facility] [address] [place] [address] Dr. Abril Richmond Potassium [Moles/Vol] 3.9 mmol/L Normal 3.5-5.1 [facility] Comment on above: Performed By: #### B MP #### [facility] [address] [place] [address] Dr. Abril Richmond Sodium [Moles/Vol] 141 mmol/L Normal 136-145 [facility] Comment on above: Performed By: #### B MP #### [facility] [address] [place] [address] [address] Abril Richmond Urea nitrogen [Mass/Vol] 17.0 mg/dL Normal 7.0-18.0 [facility] Comment on above: Performed By: #### B MP #### [facility] [address] [place] [address] [address] Abril Richmond Urea nitrogen/Creatinine [Mass ratio] 21.0 mg/mg Normal [facility] Comment on above: Performed By: #### B MP #### [facility] [address] [place] [address] [address] Abril Richmond POINT OF CARE GLUCOSEon 09-19 Glucose [Mass/Vol] 167 mg/dL Critically high 74-106 [facility] Comment on above: Performed By: #### P OCGLUC #### [facility] [address] [place] [address] Dr. Abril Richmond XR CHEST 1 Von [...] JUNG BRUMFIELD Date: 2022-10-11 13:22 Normal [facility] BLOOD CULTURE ID PANELon A. baumannii Not detected Normal NOT DETECTED [facility] Comment on above: Performed By: #### B CID2 #### [facility] [address] [place] [address] Dr. Abril Richmond Bacteriodes fragilis Not detected Normal NOT DETECTED [facility] Comment on above: Performed By: #### B CID2 #### [facility] [address] [place] [address] Dr. Abril Richmond BCID CONTROLS PASSED Normal The [facility] Comment on above: Performed By: #### B CID2 #### [facility] [address] [place] [address] Dr. Abril Richmond BCIDBTHD BLOOD CULTURE BOTTLE INFORMATION [facility] Comment on above: Performed By: #### B CID2 #### [facility] [address] [place] [address] Dr. Abril Richmond BCIDHD1 ANTIMICROBIAL RESISTANCE GENES [facility] Comment on above: Performed By: #### B CID2 #### [facility] [address] [place] [address] Dr. Abril Richmond BCIDHD2 SEE BELOW [facility] Comment on above: Result Comment: Note : Antimicrobial resitance can occur via multiple mechanisms. A Not Detected result for the [employer] antomicrobial resistance gene assays does not indicate antimicrobial susceptibility. Subculturing is required for species identification and susceptibility testing of isolates. Performed By: #### B CID2 #### [facility] [address] [place] [address] Dr. Abril Richmond BCIDHD3 Positive [facility] Comment on above: Performed By: #### B CID2 #### [facility] [address] [place] [address] Dr. Abril Richmond BCIDHD4 Negative [facility] Comment on above: Performed By: #### B CID2 #### [facility] [address] [place] [address] Dr. Abril Richmond BCIDHD5 YEAST [facility] Comment on above: Performed By: #### B CID2 #### [facility] [address] [place] [address] Dr. Abril Richmond Bottle Set: Set 1 [facility] Comment on above: Performed By: #### B CID2 #### [facility] [address] [place] [address] Dr. Abril Richmond Bottle: Aerobic Normal [facility] Comment on above: Performed By: #### B CID2 #### [facility] [address] [place] [address] Dr. Abril Richmond C. neoformans/gattii Not detected Normal NOT DETECTED [facility] Comment on above: Performed By: #### B CID2 #### [facility] [address] [place] [address] Dr. Abril Richmond Lucy albicans Not detected Normal NOT DETECTED [facility] Comment on above: Performed By: #### B CID2 #### [facility] [address] [place] [address] Dr. Abril Richmond Lucy auris Not detected Normal NOT DETECTED [facility] Comment on above: Performed By: #### B CID2 #### [facility] [address] [place] [address] Dr. Abril Richmond Lucy glabrata Not detected Normal NOT DETECTED [facility] Comment on above: Performed By: #### B CID2 #### [facility] [address] [place] [address] Dr. Abril Richmond Lucy Krusei Not detected Normal NOT DETECTED [facility] Comment on above: Performed By: #### B CID2 #### [facility] [address] [place] [address] Dr. Abril Richmond Lucy Parapsilosis Not detected Normal NOT DETECTED [facility] Comment on above: Performed By: #### B CID2 #### [facility] [address] [place] [address] Dr. Abril Richmond Lucy Tropicalis Not detected Normal NOT DETECTED [facility] Comment on above: Performed By: #### B CID2 #### [facility] [address] [place] [address] Dr. Abril Richmond CTX-M Resistant Gene Not Applicable Normal NOT DETECTE D [facility] Comment on above: Performed By: #### B CID2 #### [facility] [address] [place] [address] Dr. Abril Richmond E. Cloacae complex Not detected Normal NOT DETECTED [facility] Comment on above: Performed By: #### B CID2 #### [facility] [address] [place] [address] Dr. Abril Richmond E. faecalis Not detected Normal NOT DETECTED [facility] Comment on above: Performed By: #### B CID2 #### [facility] [address] [place] [address] Dr. Abril Richmond E. faecium Not detected Normal NOT DETECTED [facility] Comment on above: Performed By: #### B CID2 #### [facility] [address] [place] [address] Dr. Abril Richmond Enterobacteriaceae Not detected Normal NOT DETECTED [facility] Comment on above: Performed By: #### B CID2 #### [facility] [address] [place] [address] Dr. Abril Richmond Escherichia coli Not detected Normal NOT DETECTED [facility] Comment on above: Performed By: #### B CID2 #### [facility] [address] [place] [address] Dr. Abril Richmond H. influenzae Not detected Normal NOT DETECTED [facility] Comment on above: Performed By: #### B CID2 #### [facility] [address] [place] [address] Dr. Abril Richmond IMP Resistant Gene Not Applicable Normal NOT DETECTED [facility] Comment on above: Performed By: #### B CID2 #### [facility] [address] [place] [address] Dr. Abril Richmond K. oxytoca Not detected Normal NOT DETECTED [facility] Comment on above: Performed By: #### B CID2 #### [facility] [address] [place] [address] Dr. Abril Richmond K. pneumoniae Not detected Normal NOT DETECTED [facility] Comment on above: Performed By: #### B CID2 #### [facility] [address] [place] [address] Dr. Abril Richmond Klebsiella aerogenes Not detected Normal NOT DETECTED [facility] Comment on above: Performed By: #### B CID2 #### [facility] [address] [place] [address] Dr. Abril Richmond KPC Resistant Gene Not detected Normal NOT DETECTED [facility] Comment on above: Performed By: #### B CID2 #### [facility] [address] [place] [address] Dr. Abril Rihcmond List. monocytogenes Not detected Normal NOT DETECTED [facility] Comment on above: Performed By: #### B CID2 #### [facility] [address] [place] [address] Dr. Abril Richmond Mcr-1 Resistant Gene Not Applicable Normal NOT DETECTE D [facility] Comment on above: Performed By: #### B CID2 #### [facility] [address] [place] [address] Dr. Abril Richmond mecA/C Not Applicable Normal NOT DETECTED [facility] Comment on above: Performed By: #### B CID2 #### [facility] [address] [place] [address] Dr. Abril Richmond mecA/C MREJ Not Applicable Normal NOT DETECTED [facility] Comment on above: Performed By: #### B CID2 #### [facility] [address] [place] [address] Dr. Abril Richmond N. meningitidis Not detected Normal NOT DETECTED [facility] Comment on above: Performed By: #### B CID2 #### [facility] [address] [place] [address] Dr. Abril Richmond NDM Resistant Gene Not Applicable Normal NOT DETECTED [facility] Comment on above: Performed By: #### B CID2 #### [facility] [address] [place] [address] Dr. Abril Richmond Oxa-48-like Not Applicable Normal NOT DETECTED [facility] Comment on above: Performed By: #### B CID2 #### [facility] [address] [place] [address] Dr. Abril Richmond Proteus Not detected Normal NOT DETECTED [facility] Comment on above: Performed By: #### B CID2 #### [facility] [address] [place] [address] Dr. Abril Richmond Pseud. aeruginosa Not detected Normal NOT DETECTED [facility] Comment on above: Performed By: #### B CID2 #### [facility] [address] [place] [address] Dr. Abril Richmond S. maltophilia Not detected Normal NOT DETECTED [facility] Comment on above: Performed By: #### B CID2 #### [facility] [address] [address] [address] Abril Richmond Salmonella Not detected Normal NOT DETECTED [facility] Comment on above: Performed By: #### B CID2 #### [facility] [address] [place] [address] Dr. Abril Richmond Seratia marcescens Not detected Normal NOT DETECTED [facility] Comment on above: Performed By: #### B CID2 #### [facility] [address] [place] [address] Dr. Abril Richmond Site: R AC Normal [facility] Comment on above: Performed By: #### B CID2 #### [facility] [address] [place] [address] Dr. Abril Richmond Staph. aureus Not detected Normal NOT DETECTED [facility] Comment on above: Performed By: #### B CID2 #### [facility] [address] [place] [address] Dr. Abril Richmond Staph. epidermidis Detected Critically abnormal NOT DETECTED [facility] Comment on above: Performed By: #### B CID2 #### [facility] [address] [place] [address] Dr. Abril Richmond Staph. lugdunensis Not detected Normal NOT DETECTED [facility] Comment on above: Performed By: #### B CID2 #### [facility] [address] [place] [address] Dr. Abril Richmond Staphylococcus Detected Critically abnormal NOT DETECTED [facility] Comment on above: Performed By: #### B CID2 #### [facility] [address] [place] [address] Dr. Abril Richmond Strep. agalactiae Not detected Normal NOT DETECTED [facility] Comment on above: Performed By: #### B CID2 #### [facility] [address] [place] [address] Dr. Abril Richmond Strep. pneumoniae Not detected Normal NOT DETECTED [facility] Comment on above: Performed By: #### B CID2 #### [facility] [address] [place] [address] Dr. Abril Richmond Strep. pyogenes Not detected Normal NOT DETECTED [facility] Comment on above: Performed By: #### B CID2 #### [facility] [address] [place] [address] Dr. Abril Richmond Streptococcus Not detected Normal NOT DETECTED [facility] Comment on above: Performed By: #### B CID2 #### [facility] [address] [place] [address] Dr. Abril Richmond John/B Resist. Gene Not detected Normal NOT DETECTED [facility] Comment on above: Performed By: #### B CID2 #### [facility] [address] [place] [address] Dr. Abril Richmond VIM Resistant Gene Not Applicable Normal NOT DETECTED [facility] Comment on above: Performed By: #### B CID2 #### [facility] [address] [place] [address] Dr. Abril Richmond BNPon 10-10-2022 Natriuretic peptide B (Bld) [Mass/Vol] 194.0 pg/mL Normal <=900.0 [facility] Comment on above: Performed By: #### C MP, HSTROPN, BNP #### [facility] [address] [place] [address] Dr. Abril Richmond CBC AUTO DIFFon 10-10-2022 BASO # 0.0 103/ul Normal 0.0-0.1 [facility] Comment on above: Performed By: #### C BC #### [facility] [address] [place] [address] Dr. Abril Richmond Basophils/100 WBC (Bld) 0.2 % Normal 0.2-2.0 [facility] Comment on above: Performed By: #### C BC #### [facility] [address] [place] [address] Dr. Abril Richmond EO # 0.1 103/ul Normal 0.0-0.7 [facility] Comment on above: Performed By: #### C BC #### [facility] [address] [place] [address] Dr. Abril Richmond Eosinophils/100 WBC (Bld) 1.6 % Normal 0.9-7.0 [facility] Comment on above: Performed By: #### C BC #### [facility] [address] [place] [address] Dr. Abril Richmond Erythrocyte distribution width (RBC) [Ratio] 12.5 % Normal 11.0-15.0 [facility] Comment on above: Performed By: #### C BC #### [facility] [address] [place] [address] Dr. Abril Richmond Hematocrit (Bld) [Volume fraction] 39.2 % Normal 36.0-48.0 [facility] Comment on above: Performed By: #### C BC #### [facility] [address] [place] [address] Dr. Abril Richmond Hemoglobin (Bld) [Mass/Vol] 13.0 g/dL Normal 12.0-16.0 [facility] Comment on above: Performed By: #### C BC #### [facility] [address] [place] [address] Dr. Abril Richmond IG # 0.15 10e3/ul Critically high 0.00-0.03 [facility] Comment on above: Performed By: #### C BC #### [facility] [address] [place] [address] Dr. Abril Richmond IG % 1.8 % Critically high 0.0-0.5 [facility] [place] Comment on above: Performed By: #### C BC #### [facility] [address] [place] [address] Dr. Abril Richmond LYMPH # 1.0 103/ul Critically low 1.2-3.8 [facility] Comment on above: Performed By: #### C BC #### [facility] [address] [place] [address] Dr. Abril Richmond Lymphocytes/100 WBC (Bld) 11.7 % Critically low 20.5-60.0 [facility] Comment on above: Performed By: #### C BC #### [facility] [address] [place] [address] Dr. Abril Richmond MANUAL DIFF REQ NO Normal [facility] [place] Comment on above: Performed By: #### C BC #### [facility] [address] [place] [address] Dr. Abril Richmond MCH (RBC) [Entitic mass] 29.8 pg Normal 26.7-34.0 [facility] Comment on above: Performed By: #### C BC #### [facility] [address] [place] [address] Dr. Abril Richmond MCHC (RBC) [Mass/Vol] 33.2 g/dL Normal 29.9-35.2 [facility] Comment on above: Performed By: #### C BC #### [facility] [address] [place] [address] Dr. Abril Richmond MCV (RBC) [Entitic vol] 89.9 fL Normal 81.0-99.0 [facility] Comment on above: Performed By: #### C BC #### [facility] [address] [place] [address] Dr. Abril Richmond MONO # 0.6 103/ul Normal 0.3-0.8 [facility] Comment on above: Performed By: #### C BC #### [facility] [address] [place] [address] Dr. Abril Richmond Monocytes/100 WBC (Bld) 7.0 % Normal 1.7-12.0 [facility] Comment on above: Performed By: #### C BC #### [facility] [address] [place] [address] Dr. Abril Richmond NEUT # 6.5 103/ul Normal 1.4-6.5 [facility] Comment on above: Performed By: #### C BC #### [facility] [address] [place] [address] Dr. Abril Richmond Neutrophils/100 WBC (Bld) 77.7 % Critically high 43.0-75.0 [facility] Comment on above: Performed By: #### C BC #### [facility] [address] [place] [address] Dr. Abril Richmond Platelet mean volume (Bld) [Entitic vol] 8.6 fL Critically low 9.5-13.5 [facility] Comment on above: Performed By: #### C BC #### [facility] [address] [place], [place] [address] Dr. Abril Richmond PLT 321 103/ul Normal 150-450 [facility] Comment on above: Performed By: #### C BC #### [facility] [address] [id number] [address] Abril Richmond RBC 4.36 106/ul Normal 4.20-5.40 [facility] Comment on above: Performed By: #### C BC #### [facility] [address] [id number] [address] Abril Richmond WBC 8.4 103/ul Normal 4.0-11.0 [facility] Comment on above: Performed By: #### C BC #### [facility] [address] [place], [place] [address] Dr. Abril Richmond CTA CHEST WO W [...] PEGGY CALVIN Date: 2022-10-10 05:03 Normal [facility] CULTURE BLOODon 10-10-2022 Microscopic examination of blood, culture Culture Observations: NO GROWTH AT 5 DAYS. Normal [facility] Comment on above: Performed By: #### B MP #### [facility] [address] [address] [address] Abril Richmond D-DIMERon 10-10-2022 D-DIMER 0.78 mg/L FEU Critically high <=0.59 [facility] Comment on above: Performed By: #### B MP #### [facility] [address] [place], [place] [address] Dr. Abril Richmond D-DIMER COMMENTS SEE BELOW Normal [facility] Comment on above: Result Comment: Incr [...] hospitalization. Performed By: #### B MP #### [facility] [address] [place] [address] Dr. Abril Richmond LACTATE/LACTIC ACIDon 2022 Lactate [Moles/Vol] 0.8 mmol/L Normal 0.4-2.0 [facility] Comment on above: Performed By: #### L ACT #### [facility] [address] [place] [address] Dr. Abril Richmond PROF 14(COMP METB)on 023 Albumin [Mass/Vol] 3.4 g/dL Normal 3.4-5.0 [facility] Comment on above: Performed By: #### C MP, HSTROPN, BNP #### [facility] [address] [place] [address] Dr. Abril Richmond Albumin/Globulin [Mass ratio] 0.9 {ratio} Normal [facility] Comment on above: Performed By: #### C MP, HSTROPN, BNP #### [facility] [address] [place] [address] Dr. Abril Richmond ALP [Catalytic activity/Vol] 73 U/L Normal 46-116 [facility] Comment on above: Performed By: #### C MP, HSTROPN, BNP #### [facility] [address] [place] [address] Dr. Abril Richmond ALT [Catalytic activity/Vol] 29 U/L Normal 14-59 [facility] Comment on above: Performed By: #### C MP, HSTROPN, BNP #### [facility] [address] [place] [address] Dr. Abril Richmond Anion gap [Moles/Vol] 11.4 mmol/L Normal [facility] Comment on above: Performed By: #### C MP, HSTROPN, BNP #### [facility] [address] [place] [address] Dr. Abril Richmond AST [Catalytic activity/Vol] 22 U/L Normal 15-37 [facility] Comment on above: Performed By: #### C MP, HSTROPN, BNP #### [facility] [address] [place] [address] Dr. Abril Richmond Bilirubin [Mass/Vol] 0.3 mg/dL Normal 0.2-1.0 [facility] Comment on above: Performed By: #### C MP, HSTROPN, BNP #### [facility] [address] [place] [address] Dr. Abril Richmond Calcium [Mass/Vol] 8.4 mg/dL Critically low 8.5-10.1 [facility] Comment on above: Performed By: #### C MP, HSTROPN, BNP #### [facility] [address] [place] [address] Dr. Abril Richmond Chloride [Moles/Vol] 104 mmol/L Normal 98-107 [facility] Comment on above: Performed By: #### C MP, HSTROPN, BNP #### [facility] [address] [place] [address] Dr. Abril Richmond CO2 [Moles/Vol] 28.0 mmol/L Normal 21.0-32.0 [facility] Comment on above: Performed By: #### C MP, HSTROPN, BNP #### [facility] [address] [place] [address] Dr. Abril Richmond Creatinine [Mass/Vol] 0.96 mg/dL Normal 0.55-1.02 [facility] Comment on above: Performed By: #### C MP, HSTROPN, BNP #### [facility] [address] [place] [address] Dr. Abril Richmond EGFR-AF ECUADOREAN >60 Normal >=60 [facility] Comment on above: Performed By: #### C MP, HSTROPN, BNP #### [facility] [address] [place] [address] Dr. Abril Richmond EGFR-NON AF ECUADOREAN >60 Normal >=60 [facility] Comment on above: Performed By: #### C MP, HSTROPN, BNP #### [facility] [address] [address] [address] Abril Richmond Globulin (S) [Mass/Vol] 3.8 g/dL Normal [facility] Comment on above: Performed By: #### C MP, HSTROPN, BNP #### [facility] [address] [address] [address] Abril Richmond Glucose [Mass/Vol] 115 mg/dL Critically high 74-106 [facility] Comment on above: Performed By: #### C MP, HSTROPN, BNP #### [facility] [address] [place] [address] Dr. Abril Richmond Potassium [Moles/Vol] 3.4 mmol/L Critically low 3.5-5.1 [facility] Comment on above: Performed By: #### C MP, HSTROPN, BNP #### [facility] [address] [place] [address] Dr. Abril Richmond Protein [Mass/Vol] 7.2 g/dL Normal 6.4-8.2 [facility] Comment on above: Performed By: #### C MP, HSTROPN, BNP #### [facility] [address] [place] [address] Dr. Abril Richmond Sodium [Moles/Vol] 140 mmol/L Normal 136-145 [facility] Comment on above: Performed By: #### C MP, HSTROPN, BNP #### [facility] [address] [place] [address] Dr. Abril Richmond Urea nitrogen [Mass/Vol] 14.0 mg/dL Normal 7.0-18.0 [facility] Comment on above: Performed By: #### C MP, HSTROPN, BNP #### [facility] [address] [place] [address] Dr. Abril Richmond Urea nitrogen/Creatinine [Mass ratio] 14.6 mg/mg Normal [facility] Comment on above: Performed By: #### C MP, HSTROPN, BNP #### [facility] [address] [place] [address] Dr. Abril Richmond RESPIRATORY PANEL PLUSon Adenovirus Not detected Normal NOT DETECTED [facility] Comment on above: Performed By: #### F T4 #### [facility] [address] [place] [address] Dr. Abril Zhu. Parapertusis Not detected Normal NOT DETECTED [facility] Comment on above: Performed By: #### F T4 #### [facility] [address] [place] [address] Dr. Abril Zhu. Pertussis Not detected Normal NOT DETECTED [facility] Comment on above: Performed By: #### F T4 #### [facility] [address] [place] [address] Dr. Abril Richmond Chlamydia Pneumoniae Not detected Normal NOT DETECTED [facility] Comment on above: Performed By: #### F T4 #### [facility] [address] [place] [address] Dr. Abril Richmond Coronavirus 229E Not detected Normal NOT DETECTED [facility] Comment on above: Performed By: #### F T4 #### [facility] [address] [place] [address] Dr. Abril Richmond Coronavirus HKU1 Not detected Normal NOT DETECTED [facility] Comment on above: Performed By: #### F T4 #### [facility] [address] [place] [address] Dr. Abril Richmond Coronavirus NL63 Not detected Normal NOT DETECTED [facility] Comment on above: Performed By: #### F T4 #### [facility] [address] [place] [address] Dr. Abril Richmond Coronavirus OC43 Not detected Normal NOT DETECTED [facility] Comment on above: Performed By: #### F T4 #### [facility] [address] [place] [address] Dr. Abril Richmond Influenza A H1 Not detected Normal NOT DETECTED [facility] Comment on above: Performed By: #### F T4 #### [facility] [address] [place] [address] Dr. Abril Richmond Influenza A H1 2009 Not detected Normal NOT DETECTED [facility] Comment on above: Performed By: #### F T4 #### [facility] [address] [address] [address] Abril Richmond Influenza A H3 Not detected Normal NOT DETECTED [facility] Comment on above: Performed By: #### F T4 #### [facility] [address] [place] [address] Dr. Abril Richmond Influenza B Not detected Normal NOT DETECTED [facility] Comment on above: Performed By: #### F T4 #### [facility] [address] [address] [address] Abril Richmond Metapneumovirus Not detected Normal NOT DETECTED [facility] Comment on above: Performed By: #### F T4 #### [facility] [address] [place] [address] Dr. Abril Richmond Mycoplas. Pneumoniae Not detected Normal NOT DETECTED [facility] Comment on above: Performed By: #### F T4 #### [facility] [address] [place] [address] Dr. Abril Richmond Parainfluenza 1 Not detected Normal NOT DETECTED [facility] Comment on above: Performed By: #### F T4 #### [facility] [address] [place] [address] Dr. Abril Richmond Parainfluenza 2 Not detected Normal NOT DETECTED [facility] Comment on above: Performed By: #### F T4 #### [facility] [address] [place] [address] Dr. Abril Richmond Parainfluenza 3 Detected Abnormal NOT DETECTED [facility] Comment on above: Performed By: #### F T4 #### [facility] [address] [address] [address] Abril Richmond Parainfluenza 4 Not detected Normal NOT DETECTED [facility] Comment on above: Performed By: #### F T4 #### [facility] [address] [place] [address] Dr. Abril Richmond Rhino/Enterovirus Not detected Normal NOT DETECTED [facility] Comment on above: Performed By: #### F T4 #### [facility] [address] [address] [address] Abril Richmond RP2 Header 1 RESPIRATORY PANEL: VIRUSES Normal [facility] Comment on above: Performed By: #### F T4 #### [facility] [address] [place] [address] Dr. Abril Richmond RP2 Header 2 RESPIRATORY PANEL: BACTERIA Normal [facility] Comment on above: Performed By: #### F T4 #### [facility] [address] [address] [address] Abril Richmond RSV Not detected Normal NOT DETECTED [facility] Comment on above: Performed By: #### F T4 #### [facility] [address] [place] [address] Dr. Abril Richmond SARS-CoV-2 (COVID-19) RNA JORDI+probe Ql (Unsp spec) Not detected Normal NOT DETECTED [facility] Comment on above: Performed By: #### F T4 #### [facility] [address] [place] [address] Dr. Abril Richmond TROPONIN, HIGH SENSITIVITYon 10-10-2022 HSTROP 5.3 pg/mL Normal 4.0-51.3 [facility] Comment on above: Result Comment: CUT- OFF POINTS HAVE BEEN ESTABLISHED BASED ON THE FOURTH UNIVERSAL DEFINITIONS OF MYOCARDIAL INFARCTION. THE UPPER REFERENCE LIMIT (URL) OF TROPONIN, DEFINED THE 99TH PERCENTILE OF cTnI DISTRIBUTION IN A REFERENCE POPULATION, HAS BEEN CONFIRMED THE DECISION THRESHOLD FOR AK DIAGNOSIS. Performed By: #### C MP, HSTROPN, BNP #### [facility] [address] [place] [address] Dr. Abril Richmond ECHOCARDIO M/2D COMPLETEon 1 06-10-2021 ECHOCARDIO M/2D COMPLETE Patient: RAYSA TEJADA Exam Date: 04/10/2022 : 1970 Gender:F Ordering : DR REGAN PATTERSON . Admission #: [id number] Family : Order #: [id number] CLICK HERE TO VIEW EXAM ECHOCARDIOGRAM REPORT [...] M.D. on 04/11/2022 at 18:48 Normal [facility] CBC AUTO DIFFon 03-09-2022 BASO # 0.0 103/ul Normal 0.0-0.1 [facility] Comment on above: Performed By: #### B MP #### [facility] [address] [place] [address] Dr. Abril Richmond Basophils/100 WBC (Bld) 0.5 % Normal 0.2-2.0 [facility] Comment on above: Performed By: #### B MP #### [facility] [address] [place] [address] Dr. Abril Richmond EO # 0.2 103/ul Normal 0.0-0.7 [facility] Comment on above: Performed By: #### B MP #### [facility] [address] [place] [address] Dr. Abril Richmond Eosinophils/100 WBC (Bld) 2.0 % Normal 0.9-7.0 [facility] Comment on above: Performed By: #### B MP #### [facility] [address] [place] [address] Dr. Abril Richmond Erythrocyte distribution width (RBC) [Ratio] 12.7 % Normal 11.0-15.0 [facility] Comment on above: Performed By: #### B MP #### [facility] [address] [place] [address] Dr. Abril Richmond Hematocrit (Bld) [Volume fraction] 39.8 % Normal 36.0-48.0 [facility] Comment on above: Performed By: #### B MP #### [facility] [address] [place] [address] Dr. Abril Richmond Hemoglobin (Bld) [Mass/Vol] 13.0 g/dL Normal 12.0-16.0 [facility] Comment on above: Performed By: #### B MP #### [facility] [address] [place] [address] Dr. Abril Richmond IG # 0.03 10e3/ul Normal 0.00-0.03 [facility] Comment on above: Performed By: #### B MP #### [facility] [address] [place] [address] Dr. Abril Richmond IG % 0.4 % Normal 0.0-0.5 [facility] Comment on above: Performed By: #### B MP #### [facility] [address] [place] [address] Dr. Abril Richmond LYMPH # 1.9 103/ul Normal 1.2-3.8 [facility] Comment on above: Performed By: #### B MP #### [facility] [address] [place] [address] Dr. Abril Richmond Lymphocytes/100 WBC (Bld) 24.1 % Normal 20.5-60.0 [facility] Comment on above: Performed By: #### B MP #### [facility] [address] [place] [address] Dr. Abril Richmond MANUAL DIFF REQ NO Normal [facility] Comment on above: Performed By: #### B MP #### [facility] [address] [place] [address] Dr. Abril Richmond MCH (RBC) [Entitic mass] 30.0 pg Normal 26.7-34.0 [facility] Comment on above: Performed By: #### B MP #### [facility] [address] [address] [address] Abril Richmond MCHC (RBC) [Mass/Vol] 32.7 g/dL Normal 29.9-35.2 [facility] Comment on above: Performed By: #### B MP #### [facility] [address] [address] [address] Abril Richmond MCV (RBC) [Entitic vol] 91.7 fL Normal 81.0-99.0 [facility] Comment on above: Performed By: #### B MP #### [facility] [address] [place] [address] Dr. Abril Richmond MONO # 0.6 103/ul Normal 0.3-0.8 [facility] Comment on above: Performed By: #### B MP #### [facility] [address] [place] [address] Dr. Abril Richmond Monocytes/100 WBC (Bld) 7.3 % Normal 1.7-12.0 [facility] Comment on above: Performed By: #### B MP #### [facility] [address] [place] [address] Dr. Abril Richmond NEUT # 5.2 103/ul Normal 1.4-6.5 [facility] Comment on above: Performed By: #### B MP #### [facility] [address] [place] [address] Dr. Abril Richmond Neutrophils/100 WBC (Bld) 65.7 % Normal 43.0-75.0 [facility] Comment on above: Performed By: #### B MP #### [facility] [address] [address] [address] Abril Richmond Platelet mean volume (Bld) [Entitic vol] 8.9 fL Critically low 9.5-13.5 [facility] Comment on above: Performed By: #### B MP #### [facility] [address] [place] [address] Dr. Abril Richmond PLT 408 103/ul Normal 150-450 [facility] Comment on above: Performed By: #### B MP #### [facility] [address] [place] [address] Dr. Abril Richmond RBC 4.34 106/ul Normal 4.20-5.40 [facility] Comment on above: Performed By: #### B MP #### [facility] [address] [place] [address] Dr. Abril Richmond WBC 8.0 103/ul Normal 4.0-11.0 [facility] Comment on above: Performed By: #### B MP #### [facility] [address] [place] [address] Dr. Abril Richmond FREE T3on 03-09-2022 FREE T3 2.58 pg/mlL Normal 2.18-3.98 [facility] Comment on above: Performed By: #### T SH, FT3, BMP #### [facility] [address] [place] [address] Dr. Abril Richmond FREE T4on 03-09-2022 Free T4 [Mass/Vol] 1.04 ng/dL Normal 0.76-1.46 [facility] Comment on above: Performed By: #### F T4 #### [facility] [address] [place] [address] Dr. Abril Richmond PROF CHEM 8 (BAS METB)on Anion gap [Moles/Vol] 8.2 mmol/L Normal [facility] Comment on above: Performed By: #### B MP #### [facility] [address] [place] [address] Dr. Abril Richmond Calcium [Mass/Vol] 8.7 mg/dL Normal 8.5-10.1 [facility] Comment on above: Performed By: #### B MP #### [facility] [address] [place] [address] Dr. Abril Richmond Chloride [Moles/Vol] 105 mmol/L Normal 98-107 [facility] Comment on above: Performed By: #### B MP #### [facility] [address] [address] [address] Abril Richmond CO2 [Moles/Vol] 27.0 mmol/L Normal 21.0-32.0 [facility] Comment on above: Performed By: #### B MP #### [facility] [address] [address] [address] Abril Richmond Creatinine [Mass/Vol] 0.81 mg/dL Normal 0.55-1.02 [facility] Comment on above: Performed By: #### B MP #### [facility] [address] [address] [address] Abril Richmond EGFR-AF ECUADOREAN >60 Normal >=60 [facility] Comment on above: Performed By: #### B MP #### [facility] [address] [address] [address] Abril Richmond EGFR-NON AF ECUADOREAN >60 Normal >=60 [facility] Comment on above: Performed By: #### B MP #### [facility] [address] [address] [address] Abril Richmond Glucose [Mass/Vol] 79 mg/dL Normal 74-106 [facility] Comment on above: Performed By: #### B MP #### [facility] [address] [place] [address] Dr. Abril Richmond Potassium [Moles/Vol] 4.2 mmol/L Normal 3.5-5.1 [facility] Comment on above: Performed By: #### B MP #### [facility] [address] [address] [address] Abril Richmond Sodium [Moles/Vol] 136 mmol/L Normal 136-145 [facility] Comment on above: Performed By: #### B MP #### [facility] [address] [address] [address] Abril Richmond Urea nitrogen [Mass/Vol] 17.0 mg/dL Normal 7.0-18.0 [facility] Comment on above: Performed By: #### B MP #### [facility] [address] [address] [address] Abril Richmond Urea nitrogen/Creatinine [Mass ratio] 21.0 mg/mg Normal [facility] Comment on above: Performed By: #### B MP #### [facility] [address] [id number] Abril Richmond TSHon 03-09-2022 TSH 1.342 uIU/mL Normal 0.358-3.740 [facility] Comment on above: Performed By: #### B MP #### [facility] [address] [address] [address] Abril Richmond Vital Signs Date Time Vital Sign Value Performing Clinician Facility 02-04-2025 09:46-0400 Body height 167.6 cm Chico Jeronimo MD Work Phone: [facility] 02-04-2025 09:46-0400 Body mass index (BMI) [Ratio] 32.28 kg/m2 Chico Jeronimo MD Work Phone: [facility] 02-04-2025 09:46-0400 Body weight 90.72 kg Chico Jeronimo MD Work Phone: [facility] 02-04-2025 09:46-0400 Diastolic blood pressure 76 mm[Hg] Chico Jeronimo MD Work Phone: [facility] 02-04-2025 09:46-0400 Systolic blood pressure 122 mm[Hg] Chico Jeronimo MD Work Phone: [facility] 12-10-2024 08:50-0400 Body height 165.1 cm Regan Patterson MD Work Phone: [facility] 12-10-2024 08:50-0400 Body mass index (BMI) [Ratio] 33.45 kg/m2 Regan Patterson MD Work Phone: [facility] 12-10-2024 08:50-0400 Body temperature 97.11 [degF] Regan Patterson MD Work Phone: [facility] 12-10-2024 08:50-0400 Body weight 91.17 kg Regan Patterson MD Work Phone: [facility] 12-10-2024 08:50-0400 Diastolic blood pressure 90 mm[Hg] Regan Patterson MD Work Phone: [facility] 12-10-2024 08:50-0400 Heart rate 79 /min Regan Patterson MD Work Phone: [facility] 12-10-2024 08:50-0400 Respiratory rate 20 /min Regan Patterson MD Work Phone: [facility] 12-10-2024 08:50-0400 SaO2% (BldA) [Mass fraction] 96 % Regan Patterson MD Work Phone: [facility] 12-10-2024 08:50-0400 Systolic blood pressure 130 mm[Hg] Regan Patterson MD Work Phone: [facility] 02-11-2024 10:10-0400 Diastolic blood pressure 78 mm[Hg] DO Charley Ly Work Phone: [facility] 02-11-2024 10:10-0400 Heart rate 71 /min DO Charley Ly Work Phone: [facility] 02-11-2024 10:10-0400 Respiratory rate 16 /min DO Charley Ly Work Phone: [facility] 02-11-2024 10:10-0400 SaO2% (BldA) [Mass fraction] 100 % DO Charley Ly Work Phone: [facility] 02-11-2024 10:10-0400 Systolic blood pressure 130 mm[Hg] DO Charley Ly Work Phone: [facility] 02-11-2024 08:21-0400 Body height 166.37 cm DO Charley Ly Work Phone: [facility] 02-11-2024 08:21-0400 Body weight 86.63 kg DO Charley Ly Work Phone: [facility] 02-04-2024 08:52-0400 Body mass index (BMI) [Ratio] 32.95 kg/m2 Chico Jeronimo MD Work Phone: [facility] [employer] 02-04-2024 08:52-0400 Body weight 89.81 kg Chico Jeronimo MD Work Phone: [facility] [employer] 02-04-2024 08:52-0400 Diastolic blood pressure 80 mm[Hg] Chico Jeronimo MD Work Phone: [facility] [employer] 02-04-2024 08:52-0400 Systolic blood pressure 130 mm[Hg] Chico Jeronimo MD Work Phone: [facility] [employer] 05-15-2023 17:10-0500 Body height 167.64 cm Marycarmen Jean Other [employer] Other 05-15-2023 17:10-0500 Body mass index (BMI) [Ratio] 30.92 kg/m2 Marycarmen Jean Other [employer] Other 05-15-2023 17:10-0500 Body temperature 97.6 [degF] Marycarmen Jean Other [employer] Other 05-15-2023 17:10-0500 Body weight 86.91 kg Marycarmen Jean Other [employer] Other 05-15-2023 17:10-0500 Respiratory rate 18 /min Marycarmen Jean Other [employer] Other 05-15-2023 17:10-0500 SaO2% (BldA) [Mass fraction] 89 % Marycarmen Jean Other [employer] Other 03-05-2023 13:00-0400 Body height 167.64 cm Shannon Peñaloza Other [employer] Other 03-05-2023 13:00-0400 Body mass index (BMI) [Ratio] 31.47 kg/m2 Shannon Peñaloza Other [employer] Other 03-05-2023 13:00-0400 Body temperature 98 [degF] Shannon Peñaloza Other [employer] Other 03-05-2023 13:00-0400 Body weight 88.45 kg Shannon Peñaloza Other [employer] Other 03-05-2023 13:00-0400 Diastolic blood pressure 79 mm[Hg] Shannon Peñaloza Other [employer] Other 03-05-2023 13:00-0400 Respiratory rate 18 /min Shannon Peñaloza Other [employer] Other 03-05-2023 13:00-0400 SaO2% (BldA) [Mass fraction] 95 % Shannon Peñaloza Other [employer] Other 03-05-2023 13:00-0400 Systolic blood pressure 127 mm[Hg] Shannon Peñaloza Other [employer] Other Encounters Encounter Date Encounter Type Care Provider Facility Start: 02-04-2025 End: 02-05-2025 ambulatory [facility] Start: 02-04-2025 End: 02-04-2025 Patient encounter status Chico Jeronimo MD Work Phone: [facility] Work Phone: Start: 02-04-2025 End: 02-04-2025 Periodic preventive med est patient 40-64yrs Chico Jernoimo MD Work Phone: [facility] [place] [facility] Comment on above: Encounter for gyneco logical examination without abnormal finding (Primary Dx); Encounter for screening mammogram for malignant neoplasm of breast; Hormone imbalance; Anemia, unspecified type; Menorrhagia with regular cycle; Atypical endocervical cells on Pap smear; Encounter for screening for cervical cancer Start: 02-04-2025 End: 02-04-2025 ambulatory CHICO JERONIMO Not Available Start: 01-23-2025 End: 01-23-2025 Patient encounter procedure Bree Portillo MD Work Phone: [facility] Comment on above: Numbness (Primary Dx ); Lumbar radiculopathy; Lateral femoral cutaneous neuropathy, left Start: 01-23-2025 End: 01-23-2025 ambulatory BREE PORTILLO Not Available Start: 12-15-2024 End: 12-15-2024 Clinisync Result Encounter Regan Patterson MD Work Phone: [facility] Department Unsolicited Start: 12-15-2024 End: 12-15-2024 Clinisync Result Encounter Regan Patterson MD Work Phone: [facility] External Department Unsolicited Start: 2024 End: 2024 Telephone encounter Bree Portillo MD Work Phone: [facility] [place] [facility] Start: 12-10-2024 End: 12-10-2024 Bamboo flowsheet Regan Patterson MD Work Phone: [facility] Start: 12-10-2024 End: 12-10-2024 Bamboo flowsheet Regan Patterson MD Work Phone: [facility] Start: 12-10-2024 End: 12-10-2024 Patient encounter procedure Regan Patterson MD Work Phone: [facility] Start: 12-10-2024 End: 12-10-2024 Periodic preventive med est patient 40-64yrs Regan Patterson MD Work Phone: [facility] Comment on above: Annual physical exam (Primary Dx); Lumbar disc herniation with radiculopathy; Degeneration of intervertebral disc of lumbar region with discogenic back pain and lower extremity pain; Uterine leiomyoma, unspecified location; Numbness; Leg pain, left Start: 12-10-2024 End: 12-10-2024 ambulatory REGAN PATTERSON Not Available Start: 02-11-2024 Non-patient / Non-visit DO María Pathak Work Phone: [facility] Work Phone: Start: 02-11-2024 End: 02-11-2024 Admission to same day surgery center DO Charley Pathak Work Phone: [facility] Work Phone: Start: 02-11-2024 End: 02-11-2024 ambulatory NON STAFF [facility] Work Phone: Start: 02-04-2024 End: 02-04-2024 Office outpatient visit 10 minutes Chico Jeronimo MD Work Phone: [facility] Comment on above: Menorrhagia with reg ular cycle; Atypical endocervical cells on Pap smear Start: 11-20-2023 Patient encounter procedure Chico Jeronimo MD Work Phone: [facility] Start: 05-15-2023 End: 05-15-2023 ambulatory Marycarmen Jean Other [employer] Other Start: 05-15-2023 Patient encounter procedure Marycarmen Jean [facility] [place] Start: 03-05-2023 End: 03-05-2023 ambulatory Shannon Peñaloza Other [employer] Other Start: 03-05-2023 Office outpatient vi sit 15 minutes Shannon Peñaloza [facility] Start: 10-11-2022 End: 10-12-2022 Evaluation and management of inpatient DR REGAN PATTERSON Facility:[facility] Start: 04-10-2022 End: 04-11-[address] REGAN PATTERSON Facility:[facility] Start: 03-09-2022 End: 10-21-[address] REGAN PATTERSON Facility:[facility] Procedures Date Procedure Procedure Detail Performing Clinician Start: 12-15-2024 XR LUMBAR SPINE 2 OR 3V Regan Patterson MD Work Phone: Start: 12-15-2024 ALL CBC WITH AUTO DIFF Regan Patterson MD Work Phone: Start: 02-11-2024 Screening colonoscopy D O Charley Ly Work Phone: Start: 02-11-2024 Colonoscopy Regan lehman MD Work Phone: Start: 02-01-2024 Mammography Chico salamanca MD Work Phone: Start: 12-17-2023 Microscopic observat ion [Identifier] in Cervix by Cyto stain Chico Jeronimo MD Work Phone: Plan of Treatment Date Care Activity Detail Author Start: 02-10-2034 Screening for malign ant neoplasm of colon [facility] Start: 12-16-2028 Screening for malign ant neoplasm of cervix [facility] Start: 12-16-2026 Screening for malign ant neoplasm of cervix Pap Smear [facility] Start: 02-08-2026 End: 02-08-2026 Patient encounter procedure 02/08/2026 10:15 AM EDT Office Visit [facility] [address] [place] [phone] Chico Jeronimo MD [address] [place] [address] [facility] [place] [facility] Start: 02-08-2026 End: 02-08-2026 Professional / ancillary services management 02/08/2026 9:30 AM EDT Ancillary Procedure [facility] [place] [facility] [address] [place] [phone] [facility] [place] [facility] Start: 08-04-2025 End: 08-04-2025 Patient encounter procedure 08/04/2025 10:15 AM EDT Office Visit [facility] [address] [place] [phone] Chico Jeronimo MD [address] [place] [address] [facility] Start: 08-04-2025 End: 08-04-2025 Professional / ancillary services management 08/04/2025 9:30 AM EDT Ancillary Procedure [facility] [address] [place] [phone] [facility] Start: 02-04-2025 End: 02-04-2026 Follicle stimulating hormone Follicle stimulating hormone Lab Routine Hormone imbalance Expected: 02/04/2025 (Approximate), Expires: 02/04/2026 [facility] Comment on above: Expected: 02/04/2025 (Approximate), Expires: 02/04/2026 Start: 02-04-2025 End: 02-04-2025 Patient encounter procedure 02/04/2025 9:30 AM EDT Office Visit [facility] [address] [place] [phone] Chico Jeronimo MD [address] [place] [address] [facility] Start: 02-04-2025 End: 02-04-2025 Professional / ancillary services management 02/04/2025 8:30 AM EDT Ancillary Procedure [facility] [address] [place] [phone] [facility] [place] [facility] Start: 01-31-2025 Screening for malign ant neoplasm of breast Mammogram [facility] Start: 01-19-2025 Influenza vaccination Influenza Vacc ine (#1) [facility] Start: 12-18-2024 End: 12-18-2024 Patient encounter procedure [facility] Start: 12-18-2024 End: 12-18-2024 Professional / ancillary services management [facility] Start: 12-10-2024 End: 12-10-2025 Basic metabolic 1998 panel - Serum or Plasma Basic metabolic panel Lab Routine Annual physical exam Expected: 12/10/2024 (Approximate), Expires: 12/10/2025 [facility] Comment on above: Expected: 12/10/2024 (Approximate), Expires: 12/10/2025 Start: 12-10-2024 End: 12-10-2025 CBC W Auto Differential panel - Blood CBC and differential Lab Routine Annual physical exam Expected: 12/10/2024 (Approximate), Expires: 12/10/2025 [facility] Comment on above: Expected: 12/10/2024 (Approximate), Expires: 12/10/2025 Start: 12-10-2024 End: 12-10-2025 EMG AND NERVE CONDUCTION STUDY EMG AND NERVE CONDUCTION STUDY Neurology Routine Lumbar disc herniation with radiculopathy Numbness Leg pain, left Expected: 12/10/2024 (Approximate), Expires: 12/10/2025 [facility] Comment on above: Expected: 12/10/2024 (Approximate), Expires: 12/10/2025 Start: 12-10-2024 End: 12-10-2025 Hemoglobin A1c/Hemoglobin.total in Blood Hemoglobin A1c Lab Routine Annual physical exam Expected: 12/10/2024 (Approximate), Expires: 12/10/2025 [facility] Work Phone: Comment on above: Expected: 12/10/2024 (Approximate), Expires: 12/10/2025 Start: 12-10-2024 End: 12-10-2025 Hepatic function 2000 panel - Serum or Plasma Hepatic function panel Lab Routine Annual physical exam Expected: 12/10/2024 (Approximate), Expires: 12/10/2025 [facility] Comment on above: Expected: 12/10/2024 (Approximate), Expires: 12/10/2025 Start: 12-10-2024 End: 12-10-2025 Lipid 1996 panel - Serum or Plasma Lipid panel Lab Routine Annual physical exam Expected: 12/10/2024 (Approximate), Expires: 12/10/2025 [facility] Comment on above: Expected: 12/10/2024 (Approximate), Expires: 12/10/2025 Start: 12-10-2024 End: 07-23-2026 Thyrotropin [Units/volume] in Serum or Plasma TSH Lab Routine Annual physical exam Expected: 12/10/2024 (Approximate), Expires: 12/10/2025 [facility] Comment on above: Expected: 12/10/2024 (Approximate), Expires: 12/10/2025 Start: 12-10-2024 End: 12-10-2025 XR Lumbar spine 2 or 3 Views XR lumbar spine 2 or 3 views Imaging Routine 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 and lower extremity pain Expected: 12/10/2024, Expires: 12/10/2025 [facility] Comment on above: Expected: 12/10/2024 , Expires: 12/10/2025 Start: 12-10-2024 End: 12-10-2024 Patient encounter procedure 12/10/2024 8:45 AM EDT Office Visit [facility] [address] [place] [address] Regan Patterson MD [address] [place] [address] Arrived [facility] Comment on above: Arrived Start: 02-11-2024 [facility] Start: 01-20-2024 Influenza vaccination Influenza Vacc ine (#1) [facility] Start: 1970 Screening for malign ant neoplasm of colon [facility] DBT Breast - bilater al screening Bilateral screening mammogram with tomosynthesis Imaging Routine Encounter for screening mammogram for malignant neoplasm of breast Ordered: 02/04/2025 [facility] Work Phone: Comment on above: Ordered: 02/04/2025 IGP, APT HPV,RFX 16/18,45 IGP, APT HPV,RFX 16/18,45 Lab Routine Encounter for gynecological examination without abnormal finding Encounter for screening for cervical cancer Ordered: 02/04/2025 [facility] Comment on above: Ordered: 02/04/2025 Patient Education Colon polyps H emorrhoids (DC) Diverticulosis (DC) Know your Meds [facility] Work Phone: Payers Date Payer Category Payer Self-pay [id number] 2022 Private Health Insurance [id number] 2021 Blue Cross Blue Shield BCBS [id number] 2021 Unknown BCBS BCBS [id number] 2021-Present [phone] [id number] [place] [id number] 1972 Unknown [id number] [id number] 1972 Unknown [id number] [id number] 1972 Unknown [id number] [id number] 1972 Unknown [id number] [id number] 1972 Unknown [id number] [id number] 1972 Unknown [id number] [id number] 1972 Unknown [id number] [id number] 1959 Private Health Insurance [id number] 1959 Unknown [id number] Unknown [id number] [id number] Social History Date Type Detail Facility Unknown if ever smoked [facility] Other Start: 12-17-2023 End: 02-04-2024 Sex Assigned At [facility] Other Start: 12-17-2023 End: 02-11-2024 Tobacco smoking status [facility] Ex-smoker (finding) [facility] Start: 1970 Sex Assigned At Female F [facility] End: 05-21-2002 History of tobacco use Current smoker [facility] End: 05-21-2002 History of tobacco use Cigarette Smoker [facility] History of tobacco use Passive smoker [facility] Start: 12-17-2023 Tobacco use and exposure Smokeless tobacco non-user [facility] Start: 02-04-2024 End: 02-04-2025 Alcoholic beverage intake Lifetime non-drinker (finding) [facility] Start: 12-17-2023 End: 02-04-2024 History of Social function [facility] How often to you hav e a drink containing alcohol? Monthly or less [facility] How many standard drinks containing alcohol do you have on a typical day? 1 or 2 [facility] How often do you hav e 6 or more drinks on 1 occasion? Less than monthly [facility] Start: 1970 Sex assigned at Not on file [facility] Goals Date Patient Goal Desired Activity /State Clinical Notes 09-18-2022 to 02-04-2025 Chico Jeronimo MD - 02/04/2025 9:30 AM Samuel Portillo MD - 01/23/2025 12:00 PM EDTTelephone Encounter - Alberto Franks - 2024 2:41 PM Harley Patterson MD - 12/10/2024 9:24 AM EDT Note Date & Type Note Facility 02-04-2025 Note Subjective Patient ID: Raysa Tejada is a 54 y.o. female who presents for Follow-up (Patient is here today for a 1.5 year routine follow up. Patient states she still has SOB with walking and going upstairs along with dizziness.), Shortness of Breath, QUICK, and Asthma. Here for a check up Hospitalized for lung infection, 3 days in August 2023. Was checked for heart problems. Stress normal echo normal. Sometimes short of breath. Has asthma. Shortness of Breath Pertinent negatives include no chest pain. Her past medical history is significant for asthma. Asthma She complains of shortness of breath. There is no cough. Pertinent negatives include no chest pain. Her past medical history is significant for asthma. Sitting a lot of times for work. When gets off of elliptical can feel dizzy Review of Systems Respiratory: Positive for shortness of breath. Negative for cough and chest tightness. Cardiovascular: Negative for chest pain. Neurological: Positive for dizziness. Negative for seizures, syncope and light-headedness. Objective Visit Vitals BP 128/83 (BP Location: Left arm, Patient Position: Sitting) Pulse 87 Physical Exam Constitutional: Appearance: Normal appearance. She is obese. HENT: Head: Normocephalic and atraumatic. Cardiovascular: Rate and Rhythm: Normal rate and regular rhythm. Pulses: Carotid pulses are 2+ on the right side and 2+ on the left side. Radial pulses are 2+ on the right side and 2+ on the left side. Dorsalis pedis pulses are 2+ on the right side and 2+ on the left side. Posterior tibial pulses are 2+ on the right side and 2+ on the left side. Heart sounds: S1 normal and S2 normal. Heart sounds not distant. Murmur heard. Systolic murmur is present with a grade of 1/6. No diastolic murmur is present. No friction rub. No gallop. Pulmonary: Effort: Pulmonary effort is normal. Breath sounds: Normal breath sounds. No wheezing or rales. Musculoskeletal: Right lower leg: No edema. Left lower leg: No edema. Skin: General: Skin is warm and dry. Neurological: General: No focal deficit present. Mental Status: She is alert and oriented to person, place, and time. Mental status is at baseline. Psychiatric: Mood and Affect: Mood normal. Behavior: Behavior normal. Thought Content: Thought content normal. Assessment/Plan Ms. Tejada has some continued SOB after lung infection last year. At that time echo mild TR and otherwise normal, no documented cardiac murmur at that time over 2 visits. Today she has a soft systolic murmur. Plan echo to assess murmur which could be the TR but just not heard on prior exams. Diagnosis Plan 1. Shortness of breath 2. Heart murmur No orders of the defined types were placed in this encounter. No results found for this or any previous visit (from the past 36 hours). No follow-ups on file. [facility] 02-04-2025 History of Present illness Narrative Images from the original note were not included. Chico Jeronimo MD Obstetrics and Gynecology Patient: Raysa Tejada : 1970 (54 y.o.) Yearly Wellness Exam Date: 02/04/2025 Reason for Visit - Chief Complaint Patient presents with Gynecologic Exam Patient present for yearly, patient denies any issues or complaints at this time. LMP: 01/29/25 LMP: Last Mammogram: 02/01/24 - benign Last Pap: 12/17/23 - Neg (endo cells) Colonoscopy: No history Complaints: None History of Present Illness History of Present Illness Myomelanie, a female patient with a history of fibroids, presents for follow-up regarding her menstrual symptoms and fibroid management. The patient reports that her periods are still occurring regularly every month, which is noted as positive for the lining of her uterus. She states that her periods have become heavier, but the prescribed medication has been significantly helpful in managing this symptom. The patient's fibroids, which are described as abnormal growths of muscle in the uterus, have been causing heavier bleeding, pain, and discomfort. However, the current medication regimen appears to be effectively controlling these symptoms. The patient expresses satisfaction with the medication's efficacy, describing it as amazing and noting her appreciation that her insurance covers the cost. While the patient does not explicitly mention any changes in her overall health status or daily functioning, she appears to be coping well with her current treatment plan. There is no indication of non-adherence to the prescribed medication regimen, and the patient seems to be experiencing improved symptom management compared to her previous visits. Visit Vitals BP 122/76 (BP Location: Left arm) Ht 5' 6 Wt 200 lb LMP 01/29/2025 (Exact Date) BMI 32.28 kg/m OB Status Having periods Smoking Status Former BSA 2.05 m History of Present Illness, Associated Treatments and Results - OB History Para Term AB Living 0 0 0 0 0 0 SAB IAB Ectopic Multiple Live Births 0 0 0 0 0 Obstetric Comments 2 adopted Review of Systems - Constitutional: Negative. HENT: Negative. Eyes: Negative. Respiratory: Negative. Cardiovascular: Negative. Gastrointestinal: Negative. Endocrine: Negative. Genitourinary: Negative. Musculoskeletal: Negative. Skin: Negative. Allergic/Immunologic: Negative. Neurological: Negative. Hematological: Negative. Psychiatric/Behavioral: Negative. No Known Allergies Current Outpatient Medications: albuterol HFA 90 mcg/act inhaler, Inhale 2 puffs every 4 (four) hours if needed for wheezing., Disp: , Rfl: beclomethasone HFA (Qvar RediHaler) 40 MCG/ACT inhaler, Inhale 40 mcg in the morning and 40 mcg before bedtime. Rinse mouth with water after use to reduce aftertaste and incidence of candidiasis. Do not swallow.., Disp: , Rfl: levalbuterol (Xopenex) 45 MCG/ACT inhaler, Inhale 2 puffs every 4 (four) hours if needed for wheezing., Disp: , Rfl: meclofenamate (Meclomen) 100 MG capsule, Take 100 mg by mouth every 6 (six) hours, Disp: , Rfl: Spacer/Aero-Holding Chambers (InspiraChamber/Mouthpiece) device, , Disp: , Rfl: Past Medical History: Diagnosis Date Edema leg Hypersomnia Leg paresthesia Mild intermittent extrinsic asthma without status asthmaticus without complication (HCC) Palpitation History reviewed. No pertinent surgical history. Family History Problem Relation Name Age of Onset No Known Problems Mother No Known Problems Father No Known Problems Brother Social History Tobacco Use Smoking Status Former Current packs/day: 0.00 Types: Cigarettes Quit date: 2002 Years since quittin.7 Passive exposure: Past Smokeless Tobacco Never Physical Exam - General appearance, mentation, extraocular movements, facial strength and movement, hearing, upper and lower extremity strength and tone, sensation to gross testing, coordination, and gait are normal or at baseline unless noted below. Physical Exam Constitutional: Appearance: Normal appearance. Genitourinary: Right Labia: No rash or lesions. Left Labia: No lesions or rash. No vaginal discharge or erythema. No vaginal prolapse present. No vaginal atrophy present. Right Adnexa: not tender and no mass present. Left Adnexa: not tender and no mass present. No cervical lesion. Uterus is not tender. Uterus is anteverted. Breasts: Right: Normal. No mass or nipple discharge. Left: Normal. No mass or nipple discharge. HENT: Head: Normocephalic and atraumatic. Cardiovascular: Rate and Rhythm: Normal rate and regular rhythm. Pulmonary: Breath sounds: Normal breath sounds. Abdominal: General: There is no distension. Palpations: Abdomen is soft. There is no mass. Tenderness: There is no abdominal tenderness. Musculoskeletal: General: Normal range of motion. Cervical back: Neck supple. Lymphadenopathy: Cervical: No cervical adenopathy. Neurological: Mental Status: She is alert and oriented to person, place, and time. Skin: General: Skin is warm and dry. Psychiatric: Mood and Affect: Mood normal. Impression: US today The uterus is enlarged in size and [...] exam from 02/04/24 and appears essentially unchanged. Assessment/Plan ICD-10-CM 1. Encounter for gynecological examination without abnormal finding Z01.419 IGP, APT HPV,RFX 16/18,45 2. Encounter for screening mammogram for malignant neoplasm of breast Z12.31 Bilateral screening mammogram with tomosynthesis 3. Hormone imbalance E34.9 Follicle stimulating hormone Follicle stimulating hormone 4. Anemia, unspecified type D64.9 5. Menorrhagia with regular cycle N92.0 6. Atypical endocervical cells on Pap smear R87.619 7. Encounter for screening for cervical cancer Z12.4 IGP, APT HPV,RFX 16/18,45 Uterine Fibroids Assessment: Patient has multiple small uterine fibroids, less than 2 cm in size. The fibroids are causing heavier menstrual bleeding, which has improved with medication. The most recent ultrasound showed 4 fibroids, which are unchanged in size compared to the previous year. The endometrial lining thickness has decreased from 10.3 mm last year to 5 mm, which is considered premenopausal normal Plan: - Continue current medication for management of heavy menstrual bleeding - Repeat ultrasound in 6 months - Schedule follow-up office visit and ultrasound in 1 year Pt continues menses at age 54 FSH ordered today to confirm premenopausal state Ovarian Cyst Assessment: Patient has a small ovarian cyst measuring 17 x 16 x 18 mm, which is unchanged from previous imaging. Plan: - Continue monitoring with scheduled ultrasounds Perimenopausal State Assessment: Despite initial suspicion of approaching menopause, patient's FSH level was 30 a year ago, indicating she is not yet menopausal. She continues to have regular monthly periods. Plan: - Continue monitoring hormonal status - Reassess menopausal transition at future visits Assessment & Plan documented in this encounter [facility] 01-23-2025 History of Present illness Narrative [facility] Patient: Raysa Tejada [address], [address] , Sex: 1970, Female [place], [place] [address] Height: 168 cm Ref Phys: Naderer fax Electroneuromyogram (ENMG) Test Date: 2025-01-23 Patient Complaints: Numbness L lat thigh Nerve Conduction Studies Anti Sensory Summary Table Site NR Peak (ms) Norm Peak (ms) P-T* Amp ( V) Norm P-T Amp Site1 Site2 Delta-0 (ms) Dist (cm) Nathaniel (m/s) Norm Nathaniel (m/s) Left Lat Fem Cut (Arora's) Anti Sensory (Ant Thigh) Ing Lig 2.8 <3.01 1.8 >1.99 Ing Lig Ant Thigh 2.1 12.0 57 >40.29 Left Saphenous (Wainapel's) Anti Sensory (med mall) med leg 3.6 <4.41 2.8 >5.0 med leg med mall 3.0 14.0 47 >38.2 Left Superf Peron (Juan's) Anti Sensory (Ant Lat Mall) Calf 3.0 <4.61 0.9 >3.99 Calf Ant Lat Mall 2.3 14.0 61 >40.49 Left Sural Anti Sensory (Lat Mall) Calf 3.1 <3.91 6.6 >5.99 Calf Lat Mall 2.2 14.0 64 >36.9 Motor Summary Table Site NR Onset (ms) Norm Onset (ms) O-P* Amp (mV) Norm O-P Amp Neg Dur (ms) Site1 Site2 Delta-0 (ms) Dist (cm) Nathaniel (m/s) Norm Nathaniel (m/s) Left Peroneal Motor (Ext Dig Brev) Ankle 4.5 <6.31 3.0 >1.99 4.84 Ankle Ext Dig Brev 4.5 10.0 22 B Fib 9.4 3.1 >1.99 5.16 B Fib Ankle 4.9 24.0 49 >38.9 Left Tibial/Medial Plantar Motor (Abd Serrano Brev) Ankle 4.7 <7.51 5.4 >3.99 4.69 Ankle Abd Serrano Brev 4.7 10.0 21 Knee 10.5 6.2 >3.99 5.47 Knee Ankle 5.8 31.5 54 >37.9 H Reflex Studies NR H-Lat (ms) Lat Norm (ms) L-R H-Lat (ms) Left Tibial H-Reflex (Gastroc) 27.83 31.91 EMG Side Muscle Nerve Root Ins Act Fib/ Pos Fasc Other Atrophy Amp Dur Poly Recr Pat Int Pat Comment Left Ext Dig Brev Dp Br Peron L5, S1 0 0 0 0 0 N 1+ 0 N N Left Tibialis Ant Dp Br Peron L4-5 0 0 0 0 0 N N 0 N FFE antalgic Left Peroneus Long Sup Br Peron L5-S1 0 0 0 0 0 N N 0 N FFE Left Abd Hallucis MedPlantar S1-2 0 0 0 0 0 N N Serr N FFE Left Gastroc Med Tibial S1-2 0 0 0 0 0 N N 0 N FFE Left Vastus Lat Femoral L2-4 0 0 0 0 0 N N 0 N N Left Biceps Fem LH Sciatic L5-S2 0 0 0 0 0 N N 0 N N Left Biceps Fem SH Sciatic L5-S1 0 0 0 0 0 N N 0 N N Left L5-S1 Parasp L5-S1 0 0 0 0 0 Left L3-L4 Parasp L3-L4 0 1+ 0 0 0 Left L1-L2 Parasp L1-L2 0 0 0 0 0 Abbreviations: Atrop=atrophy; CRD=complex repetitive discharge; Discr=discrete; Doub=doublet; Fasc=fasciculation; FFE=full for effort; Fib=fibrillation; Myokym=myokymia; Hamlet=myotonic potential; N,0=normal; NR=no response; Polyph=polyphasia; Pos=positive [sharp] wave; RFU=rapidly firing units; Serr=serrated potential (2<phases<5); W&W=waxing and waning pattern INTERPRETATION: This study reveals ENMG evidence of a acute, neuropathic process affecting the left L4 nerve root most likely. This is axonal in quality and of mild degree by electrical criteria. Given the overlap of radicular territories in the paraspinal musclature; the actual nerve root involved may be one level higher or lower than suggested here. 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 This is often compressed at the level of the anterior superior iliac spine or the inguinal ligament, commonly as a result of tight clothing, especially belts, or as a result of an abdominal pannus. Paraesthesiae in the distribution of this nerve (meralgia paraesthetica) is common in diabetes mellitus. Bree Portillo M.D. Diplomate, [place] [employer]iat[employer] and Neurology (neurology, epilepsy, sleep medicine) Diplomate, [place] Board of Clinical Neurophysiology Diplomate, [place] Board of Preventive Medicine (clinical informatics) . documented in this encounter [facility] 2024 Telephone encounter Note Could not LVM, message states customer not available and to try again later. [facility] 2024 Miscellaneous Notes Could not LVM, message states customer not available and to try again later. documented in this encounter [facility] 12-10-2024 History of Present illness Narrative Associated Problem(s): Fibroid uterus Check labs and follow with panel maker. Associated Problem(s): Lumbar disc herniation with radiculopathy Mild pain but worsening radicular symptoms. Check x-ray and EMG. Likely will need MRI. Associated Problem(s): DDD (degenerative disc disease), lumbar Mild pain but worsening radicular symptoms. Check x-ray and EMG. Likely will need MRI. Associated Problem(s): Annual physical exam Due for labs and mammogram. Discussed proper diet and regular aerobic exercise. Need aerobic exercise 5-6 days a week for 30 minutes at a time. Smaller portions and limit total calories. Colonoscopy every 10 years. Tetanus every 10 years. Advised not to smoke. Images from the original note were not [...] limits snacking. Tries to limit total daily calories. Due for labs. C/o heavy menses and following with panel maker. US showed fibroids. C/o numbness in left [...] Fibroid uterus Check labs and follow with panel maker. Annual physical exam - Primary Due for [...] NERVE CONDUCTION STUDY documented in this encounter [facility] 02-11-2024 Procedure note [facility] 02-04-2024 History of Present illness Narrative Images from the original note were not included. Chico Jeronimo MD Obstetrics and Gynecology Patient: Raysa Tejada : 1970 (53 y.o.) Exam Date: 02/04/2024 Reason for Visit - Chief Complaint Patient presents with Follow-up Follow up on in house ultrasound. Endometrial cells present on pap. LMP 2023 The patient reports experiencing problems with weight gain and energy loss. She also complains of heavy periods, with one day during each period being so heavy that she does not want to leave the house. She believes she may have skipped periods in the past. The patient's last period was on the of this month. She has a history of fibroids, which were identified during an ultrasound two years ago but were not considered large enough to require intervention at that time. Complaints: weight gain, heavy menses, low energy FSH 01/03 3.2 Visit Vitals BP 130/80 Wt 198 lb LMP 2023 BMI 32.95 kg/m OB Status Having periods Smoking Status Former BSA 2.03 m History of Present Illness, Associated Treatments and Results - OB History Para Term AB Living 0 0 0 0 0 0 SAB IAB Ectopic Multiple Live Births 0 0 0 0 0 Obstetric Comments 2 adopted Constitutional: Negative. HENT: Negative. Eyes: Negative. Respiratory: Negative. Cardiovascular: Negative. Gastrointestinal: Negative. Endocrine: Negative. Genitourinary: Negative. Musculoskeletal: Negative. Skin: Negative. Allergic/Immunologic: Negative. Neurological: Negative. Hematological: Negative. Psychiatric/Behavioral: Negative. No Known Allergies Current Outpatient Medications: albuterol HFA 90 mcg/act inhaler, Inhale 2 puffs every 4 (four) hours if needed for wheezing., Disp: , Rfl: beclomethasone HFA (Qvar RediHaler) 40 MCG/ACT inhaler, Inhale 40 mcg in the morning and 40 mcg before bedtime. Rinse mouth with water after use to reduce aftertaste and incidence of candidiasis. Do not swallow.., Disp: , Rfl: levalbuterol (Xopenex) 45 MCG/ACT inhaler, Inhale 2 puffs every 4 (four) hours if needed for wheezing., Disp: , Rfl: Spacer/Aero-Holding Chambers (InspiraChamber/Mouthpiece) device, , Disp: , Rfl: Past Medical History: Diagnosis Date Edema leg Hypersomnia Leg paresthesia Mild intermittent extrinsic asthma without status asthmaticus without complication (CMS/[facility]) Palpitation History reviewed. No pertinent surgical history. Family History Problem Relation Name Age of Onset No Known Problems Mother No Known Problems Father No Known Problems Brother Social History Tobacco Use Smoking Status Former Current packs/day: 0.00 Types: Cigarettes Quit date: 2002 Years since quittin.7 Passive exposure: Past Smokeless Tobacco Never PE: Alert and oriented x3 HENT: Head: Normocephalic and atraumatic. Neurological: Mental Status: She is alert and oriented to person, place, and time. Psychiatric: Mood and Affect: Mood normal. Behavior: Behavior normal. US 02/03 ransvaginal scans of the pelvis were obtained. Today's ultrasound was compared to a previous pelvic ultrasound performed in our office on 04/06/2022. The uterus is enlarged and has findings that suggest adenomyosis. Multiple areas of decreased echogenicity throughout the uterus are visualized, which are felt to represent fibroids. The largest suspected fibroid measures 21 mm x 19 mm x 30 mm. The endometrium is normal in contour and measures 10.3 mm in thickness. Both ovaries are visible and appear normal in size and echotexture. The left ovary contains a 17 mm x 16 mm x 18 mm sonolucent cyst. There is no overt adnexal mass. There is no free fluid visible within the pelvis. Assessment/Plan ICD-10-CM 1. Menorrhagia with regular cycle N92.0 2. Atypical endocervical cells on Pap smear R87.619 Raysa was seen today for follow-up. Diagnoses and all orders for this visit: Menorrhagia with regular cycle Atypical endocervical cells on Pap smear 1. Heavy menstrual bleeding and pain due to adenomyosis: - Plan: a) Start low-dose control pill to regulate cycles and manage symptoms. b) Consider ablation as a treatment option, with the understanding that it may not alleviate pain. c) Follow up with an ultrasound every year to monitor the condition. 2. Uterine fibroids and ovarian cyst: - Plan: a) Monitor the four small fibroids and small left ovarian cyst with annual ultrasounds. b) Expect the ovarian cyst to resolve on its own. 3. Perimenopause: - Plan: a) Continue monitoring menstrual cycle irregularities and symptoms. b) Reassess FSH levels as needed to determine menopausal status. 4. Endometrial cells in Pap smear: - Plan: a) Normal finding for patient's age; no further action needed at this time. 6. Follow-up and monitoring: - Plan: a) Schedule an ultrasound appointment on the same day as the patient's next Pap smear. b) Instruct patient to contact the office if any issues or concerns arise with the control pill. documented in this encounter [facility] 05-15-2023 Evaluation note Encounter Date Diagnosis Assessment Notes Apr, Other Has been unable to keep fluid or food down > 24 hours. Low O2 sat. Referred to ER. [facility] Other 10-16-2023 Evaluation note* Encounter Date Diagnosis Assessment Notes Treatment Notes Treatment Clinical Notes Feb, Bronchitis (ICD-10 - J40) Drink plenty fluids, get plenty of rest. Take the azithromycin as prescribed until gone. Continue home medications as prescribed. Contact your credit coordinator and notify him of your symptoms and the treatment with azithromycin. Follow-up as instructed. Follow-up with your cardiology testing as scheduled. Go to the ER for worsening symptoms or concerns. [facility] Other 05-01-2023 History general Narrative - Reported* Type Description Date Surgical History wisdom teeth extract Hospitalization History parainfluenza with hypox ia 09/2022 [facility] Other Evaluation noteNo assessment information available [facility] Work Phone: Evaluation note* Diagnosis Menorrhagia with regular cycle Atypical endocervical cells on Pap smear Abnormal glandular Papanicolaou smear of cervix documented in this encounter [facility] Diagnosis Annual physical exam- Primary Routine general medical examination at a health care facility Breast cancer screening by mammogram Colon cancer screening Special screening for malignant neoplasms, colon Annual physical exam- Primary Routine general medical examination at a health care facility Lumbar disc herniation with radiculopathy Displacement of lumbar intervertebral disc without myelopathy Degeneration of intervertebral disc of lumbar region with discogenic back pain and lower extremity pain Uterine leiomyoma, unspecified location Numbness Disturbance of skin sensation Leg pain, left Pain in soft tissues of limb documented in this encounter [facility]* Diagnosis Annual physical exam- Primary Routine general medical examination at a health care facility Breast cancer screening by mammogram Colon cancer screening Special screening for malignant neoplasms, colon Annual physical exam- Primary Routine general medical examination at a health care facility Lumbar disc herniation with radiculopathy Displacement of lumbar intervertebral disc without myelopathy Degeneration of intervertebral disc of lumbar region with discogenic back pain and lower extremity pain Uterine leiomyoma, unspecified location Numbness Disturbance of skin sensation Leg pain, left Pain in soft tissues of limb Numbness- Primary Disturbance of skin sensation Lumbar radiculopathy Thoracic or lumbosacral neuritis or radiculitis, unspecified Lateral femoral cutaneous neuropathy, left documented in this encounter [facility]* Diagnosis Annual physical exam- Primary Routine general medical examination at a health care facility Breast cancer screening by mammogram Colon cancer screening Special screening for malignant neoplasms, colon Annual physical exam- Primary Routine general medical examination at a health care facility Lumbar disc herniation with radiculopathy Displacement of lumbar intervertebral disc without myelopathy Degeneration of intervertebral disc of lumbar region with discogenic back pain and lower extremity pain Uterine leiomyoma, unspecified location Numbness Disturbance of skin sensation Leg pain, left Pain in soft tissues of limb Encounter for gynecological examination without abnormal finding- Primary Encounter for screening mammogram for malignant neoplasm of breast Hormone imbalance Anemia, unspecified type Menorrhagia with regular cycle Atypical endocervical cells on Pap smear Abnormal glandular Papanicolaou smear of cervix Encounter for screening for cervical cancer documented in this encounter [facility] Author Charley Pathak [facility] February 11, 2024 9:16am Note Date/Time February 11, 2024 8:44am [facility] [address] [place] [address] Gastroenterology H&P Signed Patient: Raysa Tejada MR#: [id number] : 1970 Acct:[id number] Age/Sex: 53 / F Adm Date: 4 Loc: Room: Type: [facility] Attending Dr: Charley Pathak DO Copies to: NON STAFF Charley Pathak DO~ Date of Service: 02/11/2024 HISTORY & PHYSICAL: Patient's history with special attention to the cardiovascular, pulmonary systems and the current problem was reviewed with the patient immediately prior to the procedure. Present medications and doses reviewed in the EMR. Allergies and pertinent laboratory tests were also reviewedat this time in the EMR. The physical examination, as below, was then performed. Indication, assessment and HPI: 53-year-old female who presents for screening colonoscopy. No prior colonoscopy. Denies any GI complaints at this time. Family history of GI malignancy? No PHYSICAL EXAMINATION General appearance: cooperative, NAD Skin: No jaundice, no rash or lesions Head: NCAT Eyes: Anicteric Neck: Supple Lungs: Normal respiratory effort, no use of accessory muscles Abdomen: Soft, nondistended Neuro: No focal deficits, Ox3. REVIEW OF SYSTEMS Constitutional: Denies malaise, fevers Cardiovascular: Denies chest pain, palpitations Respiratory: Denies shortness of breath, wheezing Gastrointestinal: As per HPI Genitourinary: Denies dysuria, polyuria Musculoskeletal: Denies joint swelling, joint stiffness Neurological: Denies confusion, numbness, tingling Endocrine: Denies fatigue Written informed consent obtained from the patient. Risks (including but not limited to perforation, infection, bloating, bleeding, need for emergent surgeryand loss of life), benefits and alternatives explained and questions answered. The patient verbalized understanding. Based on history patient is an appropriate candidate for the procedure. Charley Pathak DO Present medication and doses reviewed in the EMR Documented By: Charley Pathak DO 02/11/24 0843 Signed By: <Electronically signed by Charley Pathak DO> 02/11/24 0916 [facility] Work Phone: reason for visit Narrative* Other Medical (Routine) - Closed Specialty Diagnoses / Procedures Referred By Quinton t Referred To Contact Neurology Diagnoses Lumbar disc herniation with radiculopathy Numbness Leg pain, left Procedures EMG AND NERVE CONDUCTION STUDY Regan Patterson MD Phone: tel: fax: Bree Portillo MD [address] [place] [address] [place] [address] Phone: tel: fax: Referral ID Status Reason Start Date Expiration Date Visits Re quested Visits Authorized [id number] Closed 12/10/2024 06/08/2025 1 1 [facility] Summary Purpose Family History No Family History Records Found Relationship Condition Age at Onset Recorded Date/T jessica father High blood cholesterol Unknown mother Unknown Heart disease Unknown Advance Directives No Advanced Directives Records Found Advance Directive Response Recorded Date/ Time Advance Directives No August 23 11:23am Chief Complaint and Reason for Visit Chief Complaint Screening Screening Additional Source Comments INFORMATION SOURCE (unrecogn ized section and content) DATE CREATED AUTHOR 10/28/2022 [facility] DATE CREATED AUTHOR AUTHOR'S ORGANIZ ATION 02/19/2024 [facility] DATE CREATED AUTHOR AUTHOR'S ORGANIZ ATION 02/05/2025 [facility] EPIC DATE CREATED AUTHOR AUTHOR'S ORGANIZ ATION 02/06/2025 [facility] REASON FOR VISIT (unrecogniz ed section and content) Reason Comments Follow-up Reason Comments Follow-up Numbness in leg, get s warm to touch Reason Comments Gynecologic Exam Patient present for yearly, patient denies any issues or complaints at this time. LMP: 01/29/25 Care Teams (unrecognized sec tion and content) Team Status: Active Member Role Status Dates NON STAFF Primary Care Provider Active Team Status: Inactive Member Role Status Dates Charley Pathak DO Attending Provider Active St art: February 11, 2024 End: February 11, 2024 NON STAFF Primary Care Provider Active Start: February 11, 2024 End: February 11, 2024 Team Status: Active Member Role Status Dates Charley Pathak DO Attending Provider, Other Provider Active Start: February 11, 2024 NON STAFF Primary Care Provider Active Start: February 11, 2024 [employer] Sales Representative Relationship Specialty Start Date End Date Regan Patterson MD [address] [place] [phone] PCP - [facility] 09/26/23 [employer] Sales Representative Relationship Specialty Start Date End Date Regan Patterson MD [address] [place] [phone] PCP - [facility] 09/26/23 [employer] Sales Representative Relationship Specialty Start Date End Date Regan Patterson MD [address] [place] [phone] [facility] 09/26/23 [employer] Sales Representative Relationship Specialty Start Date End Date Regan Patterson MD [address] [place] [phone] PCP [facility] 09/26/23 [employer] Sales Representative Relationship Specialty Start Date End Date Regan Patterson MD [facility] 09/26/23 [employer] Sales Representative Relationship Specialty Start Date End Date Regan Patterson MD [address] [place] [phone] [facility] 09/26/23 FOR RECORDS PERTAINING TO PATIENTS WHO ARE [...] BE BASED ON THE PRIMARY CLINICAL RECORDS. [employer] [facility]. provides no warranty or guarantee of the accuracy or completeness of information in this document.
--- NOTE | 2025-02-24 16:08 | CA_ITS ---
Patient Name: ADRIANNA CAMARGO MR#: [id number] : 1970 Exam Date: 02/24/2025 Ordering Doctor: TRELL VASQUEZ ECHOCARDIOGRAM REPORT PROCEDURE: CA ECHO DOPPLER COMPLETE INDICATIONS: Murmur, abnormal heart sounds COMPARISON: None. DESCRIPTION: COMPLETE ECHOCARDIOGRAM Real-time transthoracic echocardiography with 2D, M-mode, spectral and color flow Doppler performed. QUALITY: Technical quality was good. LEFT VENTRICLE: Normal chamber size. No left ventricular hypertrophy. Global left ventricular systolic function is normal. LV EF: Estimated left ventricular ejection fraction is 60%. DIASTOLIC: Normal diastolic function. ATRIAL SEPTUM: LEFT ATRIUM: Normal chamber size. RIGHT ATRIUM: Normal chamber size. RIGHT VENTRICLE: Normal chamber size. Normal right ventricular systolic function. TRICUSPID VALVE: Normal mobility and thickness. No stenosis with mild regurgitation. No evidence of pulmonary hypertension. RVSP 29 mmHg. MITRAL VALVE: Normal mobility and thickness. No evidence of mitral valve stenosis. There is no mitral annular calcification. Mild mitral regurgitation. AORTIC VALVE: Normal trileaflet appearance. Thickened aortic valve. Normal leaflet mobility. No evidence of aortic valve stenosis. Mild aortic regurgitation. AORTIC ROOT: Normal diameter and appearance, measuring 2.8 cm. The ascending aorta is normal in size and measures 3.3 cm. PULMONIC VALVE: Normal thickness and mobility. No stenosis. Trivial regurgitation. PERICARDIUM: No evidence of pericardial effusion. IVC: Collapses with inspiration. Mild dilatation measuring 2.2 cm. PLEURA: CONCLUSION: 1. Normal ventricular size and systolic function. Estimated LVEF is 60%. 2. Normal diastolic function. 3. Mild mitral, tricuspid and aortic regurgitation. 4. Normal right-sided pressures. Adult Echocardiography Procedure Report Left Ventricle LVEDD (3.7 - 5.6 cm): 4.63 cm LVESD (2.2 - 4.0 cm): 2.97 cm LVIVS thickness (0.6 - 1.2 cm): 1.06 cm LVPW thickness (0.5 - 1.0 cm): 0.87 cm e': 0.12 m/s E - e': 7.94 LVOT Max Gradient: 4.01 mm[Hg] LVOT Area (cm2): 1.00 m/s Peak Velocity (LVOT): 1.00 m/s Mean Velocity (LVOT): 0.66 m/s LVOT Diameter 1.97 cm Left Ventricular Ejection Fraction: 60 % Left Atrium LA Volume Index (2D A2C): 23.06 ml/m2 Left Atrium Systolic Dimension: 3.51 cm Mitral Valve MV E to A Ratio: 1.42 Mitral Valve A-Wave Peak Velocity: 0.66 m/s Mitral Valve E-Wave Peak Velocity: 0.94 m/s Right Ventricle RV Internal Diastolic Dimension: 3.35 cm Aorta AO Root Diam: 2.78 cm Ascending Ao Diam: 3.30 cm Aortic Valve AoV Area (Peak Nathaniel): 2.33 cm2, 2.33 cm2 AoV Area (VTI): 2.05 cm2, 2.05 cm2 Deceleration [place]: 1.10 m/s2 Pressure Half-Time: 1.00 s Peak Velocity(Antegrade Flow): 1.31 m/s Peak Gradient(Antegrade Flow): 6.88 mm[Hg] Mean Velocity(Antegrade Flow): 0.89 m/s Mean Gradient(Antegrade Flow): 3.65 mm[Hg] Velocity Time Integral: 29.15 cm Tricuspid Valve Peak Velocity (Regurgitant Flow): 1.92 m/s, 1.79 m/s, 2.13 m/s, 2.27 m/s Pulmonic Valve Mean Gradient: 1.60 mm[Hg] Mean Velocity: 0.60 m/s Peak Velocity: 0.78 m/s Peak Gradient: 2.44 mm[Hg] Right Atrium Right Atrium Systolic Pressure: 32.20 ml, 32.20 ml Dictated by: Dionisio Sim M.D. on 02/24/2025 at 17:54 Approved by: Dionisio Sim M.D. on 02/24/2025 at 18:00
== END 2025-02-24 15:53 | disposition home or self-care (01) ==
LOC: CARD 15:52
PROVIDERS: PCP Family Medicine; Visit Provider Internal Medicine Cardiovascular Disease
DX: R01.1 Cardiac murmur, unspecified (principal)
CPT/HCPCS: 93306